=== PATIENT | male | born 1945 | race Caucasian/White ===

== ENCOUNTER 2017-06-17 08:21 | Emergency (ER) | payer MEDICARE, MEDICAID ==
[2017-06-17] MEDS: LORATADINE 10 MG TAB PO (09:00)
[2017-06-17] MEDS: HYDROCORTISONE 1% CREAM 30 GM TOP (09:06)
== END 2017-06-17 09:18 | disposition home or self-care (01) ==
LOC: M ED 08:21
DX: R21 Rash and other nonspecific skin eruption (principal); I10 Essential (primary) hypertension; E78.00 Pure hypercholesterolemia, unspecified; Z79.899 Other long term (current) drug therapy; Z88.8 Allergy status to other drugs, medicaments and biological substances; Z88.0 Allergy status to penicillin; Z88.2 Allergy status to sulfonamides; Z98.890 Other specified postprocedural states
CPT/HCPCS: 99282

== ENCOUNTER → 2018-02-26 | Outpatient (CLI) | payer OTHER, MEDICAID ==
[2018-02-26 14:16] LABS: BASO % 0.3 % (0.0-1.0); EOS # 0.2 10^3/uL (0.0-0.50); EOS % 3.2 % (0.0-3.0); HEMATOCRIT 37.7 % (42.0-52.0); HEMOGLOBIN 12.6 g/dl (13.5-17.5); IMMATURE GRANULOCYTE % 0.6 % (0-3.0); LYMPH # 2.2 10^3/uL (1.5-4.5); LYMPH % 32.3 % (24.0-44.0); MEAN CORPUSCULAR HEMOGLOBIN 30.9 pg (27.0-33.0); MEAN CORPUSCULAR HGB CONC 33.4 g/dl (32.0-36.5); MEAN CORPUSCULAR VOLUME 92.4 fl (80.0-96.0); MONO # 0.7 10^3/uL (0.0-0.8); MONO % 10.4 % (0.0-5.0); NEUTROPHILS # 3.5 10^3/uL (1.8-7.7); NEUTROPHILS % 53.2 % (36.0-66.0); PLATELET COUNT, AUTOMATED 193 10^3/uL (150-450); RED BLOOD COUNT 4.08 10^6/uL (4.30-6.10); WHITE BLOOD COUNT 6.7 10^3/uL (4.0-10.0)
[2018-02-26 20:28] LABS: ALBUMIN 3.3 GM/DL (3.2-5.2); ALBUMIN/GLOBULIN RATIO 0.87 (1.00-1.93); ALKALINE PHOSPHATASE 78 U/L (45-117); ALT/SGPT 21 U/L (12-78); ANION GAP 13 MEQ/L (8-16); AST/SGOT 19 U/L (7-37); BILIRUBIN,TOTAL 0.7 MG/DL (0.2-1.0); BLOOD UREA NITROGEN 29 MG/DL (7-18); CALCIUM LEVEL 9.1 MG/DL (8.8-10.2); CARBON DIOXIDE LEVEL 19 MEQ/L (21-32); CHLORIDE LEVEL 113 MEQ/L (98-107); CHOLESTEROL LEVEL 141 MG/DL (<200); CHOLESTEROL RISK RATIO 2.937 (<5); CREATININE FOR GFR 1.64 MG/DL (0.70-1.30); GLOMERULAR FILTRATION RATE 44.1 (>42); GLUCOSE, FASTING 97 MG/DL (70-100); HDL CHOLESTEROL 48 MG/DL (>40); LDL CHOLESTEROL 72 MG/DL (<100); NON-HDL-C 93 MG/DL; POTASSIUM SERUM 4.4 MEQ/L (3.5-5.1); SODIUM LEVEL 145 MEQ/L (136-145); THYROXINE (T4) 7.7 UG/DL (4.5-12.0); TOTAL PROTEIN 7.1 GM/DL (6.4-8.2); TRIGLYCERIDES LEVEL 104 MG/DL (<150)
[2018-02-26 23:53] LABS: ESTIMATED AVERAGE GLUCOSE 128 MG/DL (60-110); HEMOGLOBIN A1c 6.1 %
== END ==
LOC: M SMT 08:09
DX: E78.2 Mixed hyperlipidemia (principal); I10 Essential (primary) hypertension; E11.9 Type 2 diabetes mellitus without complications; N47.7 Other inflammatory diseases of prepuce; E03.9 Hypothyroidism, unspecified; Z51.81 Encounter for therapeutic drug level monitoring; Z79.899 Other long term (current) drug therapy
CPT/HCPCS: 84443

== ENCOUNTER → 2018-03-27 | Outpatient (CLI) | payer OTHER, MEDICAID ==
[2018-03-27 09:25] LABS: HEMATOCRIT 37.7 % (42.0-52.0); HEMOGLOBIN 12.7 g/dl (13.5-17.5); MEAN CORPUSCULAR HEMOGLOBIN 30.5 pg (27.0-33.0); MEAN CORPUSCULAR HGB CONC 33.7 g/dl (32.0-36.5); MEAN CORPUSCULAR VOLUME 90.6 fl (80.0-96.0); PLATELET COUNT, AUTOMATED 176 10^3/uL (150-450); RED BLOOD COUNT 4.16 10^6/uL (4.30-6.10); RED CELL DISTRIBUTION WIDTH 13.3 % (11.5-14.5); WHITE BLOOD COUNT 6.6 10^3/uL (4.0-10.0)
[2018-03-27 09:39] LABS: INR 0.97
[2018-03-27 09:40] LABS: PARTIAL THROMBOPLASTIN TIME 28.7 SECONDS (25.4-37.6)
[2018-03-27 10:13] LABS: ANION GAP 6 MEQ/L (8-16); BLOOD UREA NITROGEN 19 MG/DL (7-18); CALCIUM LEVEL 9.3 MG/DL (8.8-10.2); CARBON DIOXIDE LEVEL 27 MEQ/L (21-32); CHLORIDE LEVEL 113 MEQ/L (98-107); CREATININE FOR GFR 1.47 MG/DL (0.70-1.30); GLOMERULAR FILTRATION RATE 49.9 (>42); GLUCOSE, FASTING 125 MG/DL (70-100); POTASSIUM SERUM 4.2 MEQ/L (3.5-5.1); SODIUM LEVEL 146 MEQ/L (136-145)
== END ==
LOC: M LAB 08:45
DX: Z01.818 Encounter for other preprocedural examination (principal); N48.89 Other specified disorders of penis; R00.1 Bradycardia, unspecified; R94.31 Abnormal electrocardiogram [ECG] [EKG]
CPT/HCPCS: 71046

== ENCOUNTER → 2018-04-15 | Outpatient (CLI) | payer OTHER, MEDICAID ==
[~2018-04-15] MED LIST: CIPROFLOXACIN 400 MG in APPROPRIATE DILUENT 1 EA IV; LIDOCAINE 2% INJ 100 MG/5 ML SDV (FOR ANES.) As Ordered; LIDOCAINE 2% INJ 100 MG/5 ML SYRINGE As Ordered; LR 1,000 ML IV; ONDANSETRON 4MG/2ML VIAL (J2405) As Ordered; PROPOFOL 200 MG/20 ML VIAL As Ordered; fentaNYL 100 MCG/2 ML INJECTION (J3010) As Ordered
[2018-04-15 11:37] LABS: BEDSIDE GLUCOSE 99 MG/DL (83-110)
[2018-04-15] MEDS: BACITRACIN OINT 30GM As Ordered (12:18)
== END ==
LOC: M SDC 10:44
DX: N47.1 Phimosis (principal)

== ENCOUNTER → 2018-05-23 | Outpatient (CLI) | payer MEDICARE, MEDICAID ==
[~2018-05-23] MED LIST changes: +BIMA01SOL OU; +BUSP5TA PO; -CIPROFLOXACIN 400 MG in APPROPRIATE DILUENT 1 EA IV; +CLAR1TAB2 PO; +FISH7.5C PO; +HYDR1CRE TOP; -LIDOCAINE 2% INJ 100 MG/5 ML SDV (FOR ANES.) As Ordered; -LIDOCAINE 2% INJ 100 MG/5 ML SYRINGE As Ordered; +LOSA100T50 PO; +LOVA1CAP17 PO; -LR 1,000 ML IV; +METO100T5 PO; +MONT10TA2 PO; -ONDANSETRON 4MG/2ML VIAL (J2405) As Ordered; +PRAV20TA2 PO; -PROPOFOL 200 MG/20 ML VIAL As Ordered; +RANI150T PO; +TAMS1CAP17 PO; +VENL75CA47 PO; +VENTAER INH; -fentaNYL 100 MCG/2 ML INJECTION (J3010) As Ordered
[2018-05-23 13:28] LABS: CALCIUM LEVEL 9.6 MG/DL (8.8-10.2); CREATININE FOR GFR 1.39 MG/DL (0.70-1.30); GLOMERULAR FILTRATION RATE 53.2 (>42); POTASSIUM SERUM 4.8 MEQ/L (3.5-5.1)
[2018-05-23 13:39] LABS: HEMATOCRIT 39.6 % (42.0-52.0); HEMOGLOBIN 13.4 g/dl (13.5-17.5); MEAN CORPUSCULAR HEMOGLOBIN 31.2 pg (27.0-33.0); MEAN CORPUSCULAR HGB CONC 33.8 g/dl (32.0-36.5); MEAN CORPUSCULAR VOLUME 92.1 fl (80.0-96.0); PLATELET COUNT, AUTOMATED 178 10^3/uL (150-450); WHITE BLOOD COUNT 6.6 10^3/uL (4.0-10.0)
== END ==
LOC: M SMT 10:35
PROVIDERS: ATTEND Urology
DX: Z01.818 Encounter for other preprocedural examination (principal); N47.1 Phimosis

== ENCOUNTER 2018-06-12 07:02 | Day surgery (SDC) | payer MEDICARE ==
[~2018-06-12] VITALS: Ht 162.6 cm; Wt 89.8 kg
[~2018-06-12 07:02] MED LIST changes: +LIDOCAINE 1% MDV 20ML VIAL SQ PRN
[2018-06-12] MEDS ORDERED: LR 1,000 ML IV ONE (07:15)
[2018-06-12] MEDS ORDERED: PROPOFOL 200 MG/20 ML VIAL As Ordered ONE (08:17)
[2018-06-12] MEDS ORDERED: LIDOCAINE 2% INJ 100 MG/5 ML SDV (FOR ANES.) As Ordered ONE (08:17)
[2018-06-12] MEDS ORDERED: fentaNYL 100 MCG/2 ML INJECTION (J3010) As Ordered ONE (08:18)
[2018-06-12] MEDS ORDERED: MIDAZOLAM INJ 2 MG/2 ML VIAL (J2250) As Ordered ONE (08:18)
[2018-06-12] MEDS: LevoFLOXacin IV 500 MG in APPROPRIATE DILUENT 1 EA IV ONE (08:25)
[2018-06-12] MEDS ORDERED: ROCURONIUM BROMIDE 50 MG/5 ML VIAL As Ordered ONE (08:44)
[2018-06-12] MEDS ORDERED: ePHEDrine SULFATE 25 MG/5 ML(5MG/ML) SYRINGE As Ordered ONE (09:27)
[2018-06-12] MEDS: BACITRACIN OINT 30GM As Ordered ONE (09:32)
[2018-06-12] MEDS ORDERED: METOCLOPRAMIDE INJ 10MG/2ML VIAL (J2765) As Ordered ONE (09:46)
[2018-06-12] MEDS ORDERED: ONDANSETRON 4MG/2ML VIAL (J2405) As Ordered ONE (09:46)
[2018-06-12] MEDS ORDERED: fentaNYL 100 MCG/2 ML INJECTION (J3010) IV PRN (11:00)
[2018-06-12] MEDS ORDERED: ONDANSETRON 4MG/2ML VIAL (J2405) IV PRN (11:00)
[2018-06-12] MEDS ORDERED: PERCOCET 5MG/325MG TAB PO PRN ×2 (11:00→11:15)
[2018-06-12] MEDS ORDERED: LR 1,000 ML IV SCH (11:00)
[2018-06-12 12:20] VITALS: BP 135/76
--- NOTE | 2018-06-13 08:20 | RO ---
DATE OF PROCEDURE: 06/12/2018 PREPROCEDURE DIAGNOSIS: Phimosis. POSTPROCEDURE DIAGNOSIS: Phimosis. PROCEDURE: Circumcision. SURGEON: Dr. Jovani Best ANIMAL ATTENDANTS AND TRAINERS: None. ANESTHESIA: General. OPERATIVE INDICATIONS: This is a 73-year-old male with phimosis and difficulty retracting his foreskin. He was brought to the operating room today for the above listed procedure. DESCRIPTION OF PROCEDURE: The patient was brought to the operating room where general anesthesia was induced. Prophylactic antibiotics were infused. He was then placed in supine position and prepped and draped in the usual sterile fashion. At this point, circumcising incisions were made at the level of the coronal sulcus with the foreskin retracted all the way back and then also with it pulled over the glans. These two circumcising incisions were then connected with the electrocautery. All of the skin in between the circumcising incisions were then removed using electrocautery. At this point, I checked for hemostasis and any areas of bleeding were controlled with electrocautery. We then reapproximated the skin of the shaft to the glans using interrupted #3-0 chromic sutures. Once the skin was reapproximated, bacitracin ointment was then applied to the incision line and then dressings were applied, starting first with a clean dressing and then a Coban dressing. This marked the conclusion of the procedure. The patient was then awakened from anesthesia and transported to the recovery room in stable condition. Estimated blood loss: 5 mL. Complications: None. Specimen: Foreskin. Plan: The patient will followup in the clinic in a few weeks for a postoperative visit .
== END 2018-06-12 13:53 | disposition home or self-care (01) ==
LOC: M SDC 07:02
PROVIDERS: ATTEND Urology
DX: N47.1 Phimosis (principal); N47.7 Other inflammatory diseases of prepuce; N40.0 Benign prostatic hyperplasia without lower urinary tract symptoms; I12.9 Hypertensive chronic kidney disease with stage 1 through stage 4 chronic kidney disease, or unspecified chronic kidney disease; R60.0 Localized edema; E11.22 Type 2 diabetes mellitus with diabetic chronic kidney disease; E03.9 Hypothyroidism, unspecified; N18.3 Chronic kidney disease, stage 3 (moderate); E78.2 Mixed hyperlipidemia; K44.9 Diaphragmatic hernia without obstruction or gangrene; K21.9 Gastro-esophageal reflux disease without esophagitis; M12.9 Arthropathy, unspecified; J45.909 Unspecified asthma, uncomplicated; J44.9 Chronic obstructive pulmonary disease, unspecified; J30.89 Other allergic rhinitis; G47.33 Obstructive sleep apnea (adult) (pediatric); Z88.0 Allergy status to penicillin; Z88.1 Allergy status to other antibiotic agents; Z88.2 Allergy status to sulfonamides; Z88.6 Allergy status to analgesic agent; Z79.899 Other long term (current) drug therapy; Z98.41 Cataract extraction status, right eye; Z98.42 Cataract extraction status, left eye; Z96.1 Presence of intraocular lens
CPT/HCPCS: 54161; 88304; J1956; J2250; J2405; J2765; J3010

== ENCOUNTER → 2018-09-26 | Outpatient (CLI) | payer MEDICARE, MEDICAID ==
[~2018-09-26] MED LIST changes: -LIDOCAINE 1% MDV 20ML VIAL SQ PRN
[2018-09-26 13:27] LABS: BASO % 0.1 % (0.0-1.0); EOS # 0.2 10^3/uL (0.0-0.50); EOS % 2.8 % (0.0-3.0); HEMATOCRIT 40.1 % (42.0-52.0); HEMOGLOBIN 13.4 g/dl (13.5-17.5); LYMPH # 1.9 10^3/uL (1.5-4.5); LYMPH % 27.7 % (24.0-44.0); MEAN CORPUSCULAR HEMOGLOBIN 31.2 pg (27.0-33.0); MEAN CORPUSCULAR HGB CONC 33.4 g/dl (32.0-36.5); MEAN CORPUSCULAR VOLUME 93.3 fl (80.0-96.0); MONO # 0.7 10^3/uL (0.0-0.8); MONO % 10.7 % (0.0-5.0); NEUTROPHILS % 58.3 % (36.0-66.0); PLATELET COUNT, AUTOMATED 162 10^3/uL (150-450); WHITE BLOOD COUNT 6.9 10^3/uL (4.0-10.0)
[2018-09-26 13:37] LABS: ALBUMIN 3.6 GM/DL (3.2-5.2); CALCIUM LEVEL 9.4 MG/DL (8.8-10.2); CHOLESTEROL RISK RATIO 3.409 (<5); CREATININE FOR GFR 1.38 MG/DL (0.70-1.30); GLOMERULAR FILTRATION RATE 53.6 (>42); POTASSIUM SERUM 4.5 MEQ/L (3.5-5.1); THYROID STIMULATING HORMONE 0.82 uIU/ML (0.358-3.740); TOTAL PROTEIN 6.8 GM/DL (6.4-8.2)
[2018-09-26 14:00] LABS: HEMOGLOBIN A1c 6.2 %
== END ==
LOC: M SMT 09:05
PROVIDERS: ATTEND Nurse Practitioner Adult Health
DX: E11.9 Type 2 diabetes mellitus without complications (principal); E03.9 Hypothyroidism, unspecified; E78.2 Mixed hyperlipidemia; N47.1 Phimosis; Z12.5 Encounter for screening for malignant neoplasm of prostate
CPT/HCPCS: 36415; 80053; 80061; 83036; 84436; 84443; 85027; G0103

== ENCOUNTER → 2018-11-21 | Outpatient (CLI) | payer MEDICARE, MEDICAID ==
[2018-11-21 13:06] LABS: BASO % 0.2 % (0.0-1.0); EOS # 0.2 10^3/uL (0.0-0.50); EOS % 3.8 % (0.0-3.0); HEMATOCRIT 37.7 % (42.0-52.0); HEMOGLOBIN 12.5 g/dl (13.5-17.5); LYMPH # 1.6 10^3/uL (1.5-4.5); LYMPH % 26.7 % (24.0-44.0); MEAN CORPUSCULAR HEMOGLOBIN 30.3 pg (27.0-33.0); MEAN CORPUSCULAR HGB CONC 33.2 g/dl (32.0-36.5); MEAN CORPUSCULAR VOLUME 91.3 fl (80.0-96.0); MONO # 0.7 10^3/uL (0.0-0.8); MONO % 11.3 % (0.0-5.0); NEUTROPHILS # 3.5 10^3/uL (1.8-7.7); NEUTROPHILS % 57.3 % (36.0-66.0); PLATELET COUNT, AUTOMATED 164 10^3/uL (150-450); RED BLOOD COUNT 4.13 10^6/uL (4.30-6.10); WHITE BLOOD COUNT 6.1 10^3/uL (4.0-10.0)
[2018-11-21 13:32] LABS: ALBUMIN 3.5 GM/DL (3.2-5.2); BILIRUBIN,TOTAL 0.4 MG/DL (0.2-1.0); CALCIUM LEVEL 9.5 MG/DL (8.8-10.2); CHOLESTEROL RISK RATIO 3.382 (<5); CREATININE FOR GFR 1.39 MG/DL (0.70-1.30); GLOMERULAR FILTRATION RATE 53.2 (>42); HEMOGLOBIN A1c 6.2 %; POTASSIUM SERUM 4.6 MEQ/L (3.5-5.1); THYROID STIMULATING HORMONE 1.78 uIU/ML (0.358-3.740); THYROXINE (T4) 7.3 UG/DL (4.5-12.0)
== END ==
LOC: M SMT 09:08
PROVIDERS: ATTEND Nurse Practitioner Adult Health
DX: E11.9 Type 2 diabetes mellitus without complications (principal); E03.9 Hypothyroidism, unspecified; E78.2 Mixed hyperlipidemia
CPT/HCPCS: 36415; 80053; 80061; 83036; 84436; 84443; 85027; G0463

== ENCOUNTER → 2020-01-16 | Outpatient (CLI) | payer MEDICAID, MEDICARE, OTHER ==
[~2020-01-16] MED LIST changes: -MONT10TA2 PO; +MONT10TA4 PO
[2020-01-16 11:52] LABS: BASO % 0.1 % (0.0-1.0); EOS % 0.1 % (0.0-3.0); HEMATOCRIT 40.4 % (42.0-52.0); HEMOGLOBIN 13.7 g/dl (13.5-17.5); LYMPH # 1.8 10^3/uL (1.5-5.0); LYMPH % 24.5 % (24.0-44.0); MEAN CORPUSCULAR HEMOGLOBIN 31.1 pg (27.0-33.0); MEAN CORPUSCULAR HGB CONC 33.9 g/dl (32.0-36.5); MEAN CORPUSCULAR VOLUME 91.6 fl (80.0-96.0); MONO # 0.8 10^3/uL (0.0-0.8); MONO % 10.4 % (0.0-5.0); NEUTROPHILS # 4.8 10^3/uL (1.5-8.5); NEUTROPHILS % 64.2 % (36.0-66.0); PLATELET COUNT, AUTOMATED 191 10^3/uL (150-450); RED BLOOD COUNT 4.41 10^6/uL (4.30-6.10); WHITE BLOOD COUNT 7.5 10^3/uL (4.0-10.0)
[2020-01-16 12:38] LABS: HEMOGLOBIN A1c 5.9 %
[2020-01-16 13:47] LABS: ALBUMIN 3.7 GM/DL (3.2-5.2); BILIRUBIN,TOTAL 0.8 MG/DL (0.2-1.0); CALCIUM LEVEL 9.9 MG/DL (8.8-10.2); CHOLESTEROL RISK RATIO 2.81 (<5); CREATININE FOR GFR 1.34 MG/DL (0.70-1.30); GLOMERULAR FILTRATION RATE 55.3 (>42); POTASSIUM SERUM 4.6 MEQ/L (3.5-5.1); TOTAL PROTEIN 7.5 GM/DL (6.4-8.2)
== END ==
LOC: M LAB 10:35
PROVIDERS: ATTEND Nurse Practitioner Adult Health
DX: E78.2 Mixed hyperlipidemia (principal); K21.9 Gastro-esophageal reflux disease without esophagitis; N40.1 Benign prostatic hyperplasia with lower urinary tract symptoms; F41.9 Anxiety disorder, unspecified; Z79.899 Other long term (current) drug therapy

== ENCOUNTER → 2020-04-28 | Outpatient (CLI) | payer OTHER, MEDICAID ==
[~2020-04-28] MED LIST changes: -MONT10TA4 PO; +MONT5TAB2 PO
[2020-04-28 10:03] LABS: BASO % 0.2 % (0.0-1.0); HEMATOCRIT 39.8 % (42.0-52.0); HEMOGLOBIN 13.1 g/dl (13.5-17.5); LYMPH % 32.1 % (24.0-44.0); MEAN CORPUSCULAR HEMOGLOBIN 30.1 pg (27.0-33.0); MEAN CORPUSCULAR HGB CONC 32.9 g/dl (32.0-36.5); MEAN CORPUSCULAR VOLUME 91.5 fl (80.0-96.0); MONO # 0.7 10^3/uL (0.0-0.8); MONO % 11.7 % (0.0-5.0); NEUTROPHILS # 3.5 10^3/uL (1.5-8.5); NEUTROPHILS % 55.5 % (36.0-66.0); PLATELET COUNT, AUTOMATED 194 10^3/uL (150-450); RED BLOOD COUNT 4.35 10^6/uL (4.30-6.10); WHITE BLOOD COUNT 6.4 10^3/uL (4.0-10.0)
[2020-04-28 10:11] LABS: HEMOGLOBIN A1c 5.9 %
[2020-04-28 10:36] LABS: ALBUMIN 3.6 GM/DL (3.2-5.2); BILIRUBIN,TOTAL 0.4 MG/DL (0.2-1.0); CALCIUM LEVEL 9.9 MG/DL (8.8-10.2); CHOLESTEROL RISK RATIO 4.108 (<5); CREATININE FOR GFR 1.42 MG/DL (0.70-1.30); GLOMERULAR FILTRATION RATE 51.6 (>42); MAGNESIUM LEVEL 2.3 MG/DL (1.8-2.4); POTASSIUM SERUM 4.9 MEQ/L (3.5-5.1); TOTAL PROTEIN 7.4 GM/DL (6.4-8.2)
== END ==
LOC: M LAB 08:50
PROVIDERS: ATTEND Nurse Practitioner Adult Health
DX: E78.2 Mixed hyperlipidemia (principal); R73.03 Prediabetes; Z79.899 Other long term (current) drug therapy

== ENCOUNTER → 2020-07-28 | Outpatient (CLI) | payer OTHER, MEDICAID ==
[~2020-07-28] MED LIST changes: +MONT10TA10 PO; -MONT5TAB2 PO
[2020-07-28 09:43] LABS: BASO % 0.2 % (0.0-1.0); HEMATOCRIT 40.4 % (42.0-52.0); HEMOGLOBIN 13.4 g/dl (13.5-17.5); LYMPH # 1.9 10^3/uL (1.5-5.0); LYMPH % 31.9 % (24.0-44.0); MEAN CORPUSCULAR HEMOGLOBIN 30.4 pg (27.0-33.0); MEAN CORPUSCULAR HGB CONC 33.2 g/dl (32.0-36.5); MEAN CORPUSCULAR VOLUME 91.6 fl (80.0-96.0); MONO # 0.8 10^3/uL (0.0-0.8); MONO % 12.9 % (2.0-8.0); NEUTROPHILS # 3.3 10^3/uL (1.5-8.5); NEUTROPHILS % 54.7 % (36.0-66.0); PLATELET COUNT, AUTOMATED 177 10^3/uL (150-450); RED BLOOD COUNT 4.41 10^6/uL (4.30-6.10); WHITE BLOOD COUNT 6.1 10^3/uL (4.0-10.0)
[2020-07-28 10:16] LABS: HEMOGLOBIN A1c 5.9 %
[2020-07-28 10:29] LABS: ALBUMIN 3.7 GM/DL (3.2-5.2); BILIRUBIN,TOTAL 0.6 MG/DL (0.2-1.0); CALCIUM LEVEL 9.5 MG/DL (8.8-10.2); CHOLESTEROL RISK RATIO 4.372 (<5); CREATININE FOR GFR 1.41 MG/DL (0.70-1.30); MAGNESIUM LEVEL 2.1 MG/DL (1.8-2.4); POTASSIUM SERUM 4.4 MEQ/L (3.5-5.1); THYROID STIMULATING HORMONE 1.64 uIU/ML (0.358-3.740); TOTAL PROTEIN 7.4 GM/DL (6.4-8.2)
== END ==
LOC: M LAB 08:57
PROVIDERS: ATTEND Nurse Practitioner Adult Health
DX: Z00.01 Encounter for general adult medical examination with abnormal findings (principal); R73.03 Prediabetes; E78.2 Mixed hyperlipidemia; Z79.899 Other long term (current) drug therapy

== ENCOUNTER → 2020-10-11 | Outpatient (CLI) | payer OTHER, MEDICAID ==
[2020-10-11 10:54] LABS: BASO % 0.1 % (0.0-1.0); HEMATOCRIT 41.2 % (42.0-52.0); HEMOGLOBIN 13.6 g/dl (13.5-17.5); LYMPH # 1.9 10^3/uL (1.5-5.0); LYMPH % 26.9 % (24.0-44.0); MEAN CORPUSCULAR HEMOGLOBIN 30.8 pg (27.0-33.0); MEAN CORPUSCULAR VOLUME 93.2 fl (80.0-96.0); MONO # 0.8 10^3/uL (0.0-0.8); MONO % 11.1 % (2.0-8.0); NEUTROPHILS # 4.3 10^3/uL (1.5-8.5); NEUTROPHILS % 61.5 % (36.0-66.0); PLATELET COUNT, AUTOMATED 152 10^3/uL (150-450); RED BLOOD COUNT 4.42 10^6/uL (4.30-6.10)
[2020-10-11 11:40] LABS: ALBUMIN 3.8 GM/DL (3.2-5.2); BILIRUBIN,TOTAL 0.6 MG/DL (0.2-1.0); CALCIUM LEVEL 9.9 MG/DL (8.8-10.2); CHOLESTEROL RISK RATIO 4.829 (<5); CREATININE FOR GFR 1.31 MG/DL (0.70-1.30); GLOMERULAR FILTRATION RATE 56.6 (>42); MAGNESIUM LEVEL 2.2 MG/DL (1.8-2.4); POTASSIUM SERUM 4.4 MEQ/L (3.5-5.1); THYROID STIMULATING HORMONE 1.97 uIU/ML (0.358-3.740); TOTAL PROTEIN 7.5 GM/DL (6.4-8.2)
== END ==
LOC: M LAB 09:37
PROVIDERS: ATTEND Nurse Practitioner Family
DX: I10 Essential (primary) hypertension (principal)
CPT/HCPCS: 36415; 80053; 80061; 83036; 83735; 84443; 85025; G0103

== ENCOUNTER → 2020-11-18 | Outpatient (REF) | payer OTHER, MEDICAID | LOC: M LAB REF 17:09 | PROVIDERS: ATTEND Internal Medicine Nephrology | DX: N18.31 Chronic kidney disease, stage 3a (principal); I12.9 Hypertensive chronic kidney disease with stage 1 through stage 4 chronic kidney disease, or unspecified chronic kidney disease ==

== ENCOUNTER → 2020-11-29 | Outpatient (CLI) | payer OTHER, MEDICAID ==
--- NOTE | 2020-11-29 17:05 | REP ---
INDICATION: CKD 3A. COMPARISON: None. TECHNIQUE: Urinary tract sonography FINDINGS: Scanning of the level of the urinary bladder shows that it is largely empty at the time of scanning.. Renal cortical echogenicity pattern is normal bilaterally and contours are smooth. There is no evidence of hydronephrosis, cyst, mass, or calculus in either kidney. The right kidney measures 9.8 x 4.9 x 5.4 cm. Left renal dimensions are 9.3 x 4.8 x 4.9 cm. IMPRESSION: Unremarkable urinary tract ultrasound.. <Electronically signed by Leo Bernal > 11/29/20 [id number]
== END ==
LOC: M RAD 15:26
PROVIDERS: ATTEND Internal Medicine Nephrology
DX: N18.31 Chronic kidney disease, stage 3a (principal)

== ENCOUNTER → 2020-12-22 | Outpatient (CLI) | payer OTHER, MEDICAID ==
[2020-12-22 10:36] LABS: EOS % 0.2 % (0.0-3.0); HEMATOCRIT 39.6 % (42.0-52.0); HEMOGLOBIN 13.2 g/dl (13.5-17.5); LYMPH # 1.8 10^3/uL (1.5-5.0); MEAN CORPUSCULAR HGB CONC 33.3 g/dl (32.0-36.5); MONO # 0.6 10^3/uL (0.0-0.8); MONO % 9.3 % (2.0-8.0); NEUTROPHILS # 3.6 10^3/uL (1.5-8.5); PLATELET COUNT, AUTOMATED 149 10^3/uL (150-450); RED BLOOD COUNT 4.26 10^6/uL (4.30-6.10); WHITE BLOOD COUNT 5.9 10^3/uL (4.0-10.0)
[2020-12-22 11:13] LABS: ALBUMIN 3.5 GM/DL (3.2-5.2); BILIRUBIN,TOTAL 0.7 MG/DL (0.2-1.0); CALCIUM LEVEL 9.3 MG/DL (8.8-10.2); CHOLESTEROL RISK RATIO 3.2 (<5); CREATININE FOR GFR 1.29 MG/DL (0.70-1.30); GLOMERULAR FILTRATION RATE 57.6 (>42); MAGNESIUM LEVEL 2.3 MG/DL (1.8-2.4); POTASSIUM SERUM 4.2 MEQ/L (3.5-5.1); THYROID STIMULATING HORMONE 2.58 uIU/ML (0.358-3.740); TOTAL PROTEIN 7.3 GM/DL (6.4-8.2)
== END ==
LOC: M LAB 09:13
PROVIDERS: ATTEND Nurse Practitioner Family
DX: E78.5 Hyperlipidemia, unspecified (principal); F41.8 Other specified anxiety disorders; Z79.899 Other long term (current) drug therapy; I10 Essential (primary) hypertension; E83.42 Hypomagnesemia; E11.9 Type 2 diabetes mellitus without complications

== ENCOUNTER → 2020-12-22 | Outpatient (CLI) | payer OTHER, MEDICAID ==
[2020-12-22 11:12] LABS: ALBUMIN 3.7 GM/DL (3.2-5.2); ALT/SGPT 27 U/L (12-78); BILIRUBIN,TOTAL 0.7 MG/DL (0.2-1.0); BLOOD UREA NITROGEN 19 MG/DL (7-18); CALCIUM LEVEL 9.7 MG/DL (8.8-10.2); CARBON DIOXIDE LEVEL 27 MEQ/L (21-32); CHLORIDE LEVEL 113 MEQ/L (98-107); CHOLESTEROL LEVEL 165 MG/DL (<200); CREATININE FOR GFR 1.18 MG/DL (0.70-1.30); GLOMERULAR FILTRATION RATE > 60.0 (>42); GLUCOSE, FASTING 110 MG/DL (70-100); HDL CHOLESTEROL 50 MG/DL (>40); LDL CHOLESTEROL 90 MG/DL (<100); NON-HDL-C 115 MG/DL; POTASSIUM SERUM 4.1 MEQ/L (3.5-5.1); SODIUM LEVEL 145 MEQ/L (136-145); TOTAL PROTEIN 7.3 GM/DL (6.4-8.2); TRIGLYCERIDES LEVEL 125 MG/DL (<150)
[2020-12-22 11:52] LABS: HEMOGLOBIN A1c 6.1 %
== END ==
LOC: M LAB 09:08
PROVIDERS: ATTEND Student in an Organized Health Care Education/Training Program
DX: E11.9 Type 2 diabetes mellitus without complications (principal)

== ENCOUNTER → 2021-02-21 | Outpatient (REF) | payer OTHER, MEDICAID | LOC: M LAB REF 17:01 | PROVIDERS: ATTEND Internal Medicine Nephrology | DX: R60.9 Edema, unspecified (principal); I12.9 Hypertensive chronic kidney disease with stage 1 through stage 4 chronic kidney disease, or unspecified chronic kidney disease; N18.31 Chronic kidney disease, stage 3a ==

== ENCOUNTER → 2021-03-15 | Outpatient (CLI) | payer OTHER, MEDICAID ==
[2021-03-15 14:37] LABS: BASO % 0.2 % (0.0-1.0); EOS # 0.1 10^3/uL (0.0-0.5); HEMATOCRIT 38.1 % (42.0-52.0); HEMOGLOBIN 12.8 g/dl (13.5-17.5); LYMPH # 1.7 10^3/uL (1.5-5.0); LYMPH % 27.9 % (24.0-44.0); MEAN CORPUSCULAR HEMOGLOBIN 30.9 pg (27.0-33.0); MEAN CORPUSCULAR HGB CONC 33.6 g/dl (32.0-36.5); MONO # 0.7 10^3/uL (0.0-0.8); MONO % 11.3 % (2.0-8.0); NEUTROPHILS # 3.6 10^3/uL (1.5-8.5); NEUTROPHILS % 59.3 % (36.0-66.0); PLATELET COUNT, AUTOMATED 177 10^3/uL (150-450); RED BLOOD COUNT 4.14 10^6/uL (4.30-6.10)
[2021-03-15 14:52] LABS: ALBUMIN 3.4 GM/DL (3.2-5.2); BILIRUBIN,TOTAL 0.6 MG/DL (0.2-1.0); CALCIUM LEVEL 9.9 MG/DL (8.8-10.2); CHOLESTEROL RISK RATIO 3.365 (<5); CREATININE FOR GFR 1.29 MG/DL (0.70-1.30); GLOMERULAR FILTRATION RATE 57.6 (>42); POTASSIUM SERUM 4.5 MEQ/L (3.5-5.1); THYROID STIMULATING HORMONE 1.32 uIU/ML (0.358-3.740); TOTAL PROTEIN 7.2 GM/DL (6.4-8.2)
[2021-03-15 19:44] LABS: HEMOGLOBIN A1c 6.2 %
== END ==
LOC: M PLALAB 10:31
PROVIDERS: ATTEND Nurse Practitioner Family
DX: I10 Essential (primary) hypertension (principal)

== ENCOUNTER 2021-03-21 11:05 | Emergency (ER) | payer OTHER, MEDICAID ==
[~2021-03-21] VITALS: Ht 165.1 cm; Wt 93.3 kg
--- OUTSIDE RECORDS SUMMARY | 2021-03-21 11:16 | CCD | Continuity of Care Document ---
Author Author Cam BETH PA Organization Unknown Address [address] [place] [address], [address] [address] Phone [phone] Care Team Providers Care Aluminum Boat Assembly Supervisor Name Role Phone Cherelle Uriostegui MD AUTM [phone] Problems Description No Information Available Social History Type Date Description Comments Sex Unknown Tobacco Use Start: Unknown Denies Smoking Allergies and adverse reactions Active Allergies Criticality Reaction | Severity Comments Date Sulfa Antibiotics Unable to assess criticality 01/13/2016 Many Antibiotics Unable to assess criticality 01/13/2016 Medications Active Medications SIG Qnty Indications Ordering Provide r Date Valium 5mg Tablets take one half hour prior to mri may repeat in 25 minutes if no effect..do not drive to or from mri 2tabs Wilmer Reyes MD 03/21/2010 Proair HFA 108(90Base) mcg/Act Aer osol inhale two puffs by mouth four times a day Unkno wn Metoprolol Tartrate 100mg Tablets Unknown [place]-3 Ethyl Esters 1gm Unknown Aleve 220mg Tablets sig 1 by mouth twice a day as needed Unknown Ocuvite Tablets Unknown Losartan Potassium 100mg Tablets 1 by mouth every day Unknown Ranitidine HCL 150mg Tablets twice a day Unknown Pravastatin Sodium 20mg Tablets 1 tablet by mouth every bedtime Unknown 0 Montelukast Sodium 10mg Tablets 1 by mouth every day Unknown Tamsulosin HCL 0.4mg Capsules 1 by mouth every day Unknown Immunizations Description No Information Available Vital Signs Date Vital Result Comment 12/31/2020 2:17pm Body Temperature 96.9 F Height 64 inches 5'4" Weight 208.50 lb BMI (Body Mass Index) 35.8 kg/m2 12/27/2015 8:57am Body Temperature 97.1 F Height 65 inches 5'5" Weight 206.00 lb BMI (Body Mass Index) 34.3 kg/m2 Results Description No Information Available Procedures Date Code Description Status 03/03/2021 63094 Office/Outpatient Established Lo w MDM 20-29 Min Completed 12/31/2020 63927 Office/Outpatient Established Mo d MDM 30-39 Min Completed 12/31/2020 91157 X-Ray Knee Complete W/Obliques & Tunnel And/Or Standing Views Completed 12/31/2020 Inject/Drain Joint/Bursa Major C ompleted Medical Devices Description No Information Available Encounters Type Date Location Provider Dx Diagnosis Office Visit 03/03/2021 10:30a [facility] Shield[facility] M17.11 Unilateral primary osteoarthritis, right knee Office Visit 12/31/2020 2:30p [facility] Shields M17.11 Unilateral primary osteoarthritis, right knee Assessments Date Code Description Provider 03/03/2021 M17.11 Unilateral primary osteoarthriti s, right knee ANDREAS Olmos 12/31/2020 M17.11 Unilateral primary osteoarthriti s, right knee ANDREAS Olmos Plan of Treatment 03/03/2021 - ANDREAS Olmos* M17.11 Unilateral primary osteoarthritis, right knee* Follow up:* prn Functional Status Description No Information Available Mental Status Description No Information Available Referrals Refer to Reason for Referral Status Appt Date Marquise Ram MD 01/07/21 Monovisc Right Knee p er humana fax no auth is req, passed to frank to schedule sw. Created [address] [place] [address], [address] [place] [address] [phone]
--- OUTSIDE RECORDS SUMMARY | 2021-03-21 11:16 | CCD | Continuity of Care Document ---
Author Author Cam BETH PA Organization Unknown Address [address] [place] [address], [address] [address] Phone [phone] Care Team Providers Care Pharmacy Ancillary Name Role Phone VinnyRosalind Higinio QUILL PICKING MACHINE OPERATOR AUTM [phone] Problems Description No Information Available Social History Type Date Description Comments Sex Unknown Tobacco Use Start: Unknown Denies Smoking Allergies, Adverse Reactions, Alerts Active Allergies Criticality Reaction | Severity Comments [...] Unkno wn Metoprolol Tartrate 100mg Tablets Unknown [place]-3 Ethyl Esters 1gm Unknown Aleve 220mg Tablets [...] Information Available Procedures Date Code Description Status 12/31/2020 34741 Office/Outpatient Established Mo d MDM 30-39 Min Completed 12/31/2020 28378 X-Ray Knee Complete W/Obliques & Tunnel And/Or Standing Views Completed 12/31/2020 Inject/Drain Joint/Bursa Major C ompleted Medical Devices Description No Information Available Encounters Type Date Location Provider Dx Diagnosis Office Visit 12/31/2020 2:30p [place] ANDREAS Olmos M17.11 Unilateral primary osteoarthritis, right knee Assessments Date Code Description Provider 12/31/2020 M17.11 Unilateral primary osteoarthriti s, right knee ANDREAS Olmos Plan of Treatment Future Appointment(s):* 03/03/2021 10:30 am - ANDREAS Olmos at [place] 12/31/2020 - ANDREAS Olmos* M17.11 Unilateral primary osteoarthritis, right knee* Follow up:* 8-10 weeks for rt knee recheck with IID Functional Status Description No Information Available Mental Status Description No Information Available Referrals Refer to Dr Reason for Referral Status Appt Date Marquise Ram MD 01/07/21 Monovisc Right Knee p er humana fax no auth is req, passed to frank to schedule sw. Created [facility] [facility], [address] [place] [address] [phone]
--- OUTSIDE RECORDS SUMMARY | 2021-03-21 11:16 | CCD | Continuity of Care Document ---
Author Author Cam WARREN Organization Unknown Address [address] [place] [address] Phone [phone] Care Team Providers Care Petroleum Terminal Plant Operator Name Role Phone Clara Warren AUTM [phone] Problems Active Problems Provider Date Essential hypertension ANDREAS Chavez Onset: 2017 Mixed hyperlipidemia ANDREAS Chavez Onset: 10/24/19 18 Gastroesophageal reflux disease ANDREAS Chavez Onse t: 10/23/2017 Asthma without status asthmaticus ANDREAS Chavez On set: 10/23/2017 Benign prostatic hyperplasia with outflow obstruction ANDREAS Marquez Onset: 10/23/2017 Sleep apnea Maxim Breen PA Onset: 8 Glaucoma Maxim Breen PA Onset: 8 Redundant prepuce and phimosis Maxim Breen PA Onset : 10/23/2017 Posthitis Maxim Breen PA Onset: 8 Anxiety state Maxim Breen PA Onset: 8 Neck pain CARINA Alexander, PNP Onset: 0 Pain in right knee CARINA Alexander, PNP Onset: 0 Taking medication [facility] Onset: 020 Edema CARINA Alexander, PNP Onset: 0 Pain in left knee CARINA Alexander, PNP Onset: 0 Hypothyroidism CARINA Alexander, PNP Onset: 0 Pain in left knee AMBER Crowder Onset: 10/18/2020 Pain in right knee AMBER Crowder Onset: 10/18/2020 Social History Type Date Description Comments Sex Unknown Tobacco Use Start: Unknown End: Quit Tobacco Use Start: Unknown Never Smoked Cigars Tobacco Use Start: Unknown Never Smoked A Pipe Tobacco Use Start: Unknown Never Used Smokeless Tobacco ETOH Use Denies alcohol use Tobacco Use Start: Unknown End: Unknown Patient is a former smoker Recreational Drug Use Denies Drug Use Allergies and adverse reactions Active Allergies Criticality Reaction | Severity Comments Date Penicillin Unable to assess criticality Nausea and Vomiting | Sev ere Cold Sweat 01/22/2018 Sulfa Antibiotics Unable to assess criticality Throat Swelling | Moderate Has been able to tolerate Tamsulosin 01/22/2018 Medications Active Medications SIG Qnty Indications Ordering Provide r Date Metformin HCL ER 500mg Tablets ER 24HR 1 tab by mouth daily with breakfast 90tabs RONALD Alexander, PNP 05/13/2020 Famotidine 20mg Tablets take one tablet by mouth twice a day 60tabs K21.9 Tito Judd MD 06/02/2019 Montelukast Sodium 10mg Tablets take one tablet by mouth every day 90tabs J45.998 Tito Judd MD Preservision Areds 2 Areds 2 Capsu les 1 tab by mouth twice a day OTC 120caps CARINA Alexander , PNP 07/17/2018 Losartan Potassium 100mg Tablets take one tablet by mouth every day 90tabs Tito Judd MD Tamsulosin HCL 0.4mg Capsules Take One Capsule By Mouth Every Day 90caps N40.1 CARINA Alexander, P PIE MAKER MACHINE 01/22/2018 Metoprolol Tartrate 100mg Tablets take one tablet by mouth twice a day 180tabs I10 CARINA Alexander, PNP 10/23/2017 Lumigan 0.01% Solution 1 drop both eyes at bedtime 2.500ml H40.9 CARINA Alexander, PNP 10/24/19 18 Pravastatin Sodium 20mg Tablets Take One Tablet By Mouth AT Bedtime 90tabs E78.2 CARINA Alexander, P PIE MAKER MACHINE 10/05/2017 Ventolin HFA 108(90Base) mcg/Act A erosol 2 puff by mouth four times a day as needed 18gm J45.998 Rosalind Andres rae, ANP-BC, PNP [id number] Ethyl Esters 1gm Caps ules Take Two Capsules By Mouth Twice A Day 60caps Tito Judd MD Alphagan P 0.1% Solution Instill One Drop Twice A Day In Each Eye Unknown 00 Latanoprost 0.005% Solution Instill 1 Drop In Each Eye Every Evening Unknown Maalox Multi Symptom Maximum Strength by mouth as needed Unknown Immunizations Description No Information Available Vital Signs Date Vital Result Comment 02/07/2021 11:15am BP Systolic 122 mmHg BP Diastolic 84 mmHg Heart Rate 61 /min Body Temperature 96.8 F Respiratory Rate 16 /min O2 % BldC Oximetry 95 % Weight 206.12 lb Weight 93.498 kg Height 64 inches 5'4" BMI (Body Mass Index) 35.4 kg/m2 BSA (Body Surface Area) 1.98 m2 10/18/2020 11:17am BP Systolic 118 mmHg BP Diastolic 70 mmHg Heart Rate 72 /min Body Temperature 96.4 F Respiratory Rate 20 /min O2 % BldC Oximetry 97 % Weight 201.50 lb Weight 91.400 kg Height 64 inches 5'4" BMI (Body Mass Index) 34.6 kg/m2 BSA (Body Surface Area) 1.96 m2 Results Test Acquired Date Facility Test Result H/L Range Note Comprehensive Metabolic Profil 03/15/[address] [facility] Glucose, Fasting 126 mg/dL High 70-100 Blood Urea Nitrogen 20 mg/dL High 7-18 Creatinine For GFR 1.29 mg/dL Normal 0.70-1.30 Glomerular Filtration Rate 57.6 Normal >42 1 Sodium Level 143 mEq/L Normal 136-145 Potassium Serum 4.5 mEq/L Normal 3.5-5.1 Chloride Level 111 mEq/L High 98-107 Carbon Dioxide Level 30 mEq/L Normal 21-32 Anion Gap 2 mEq/L Low 8-16 Calcium Level 9.9 mg/dL Normal 8.8-10.2 Ast/Sgot 15 U/L Normal 7-37 Alt/SGPT 22 U/L Normal 12-78 Alkaline Phosphatase 80 U/L Normal 45-117 Bilirubin,Total 0.6 mg/dL Normal 0.2-1.0 Total Protein 7.2 GM/DL Normal 6.4-8.2 Albumin 3.4 GM/DL Normal 3.2-5.2 Albumin/Globulin Ratio 0.9 Normal Lipid Panel 03/15/[address] [facility] Triglycerides Level 204 mg/dL High <150 Cholesterol Level 138 mg/dL Normal <200 HDL Cholesterol 41 mg/dL Normal >40 LDL Cholesterol 56 mg/dL Normal <100 Non-HDL-C 97 mg/dL Normal Cholesterol Risk Ratio 3.365 Normal <5 Laboratory test finding 03/15/[address] [facility] Thyroid Stimulating Hormone 1.320 uIU/ML Normal 0.358-3.740 Hemoglobin A1c 03/15/[address] [facility] Hemoglobin A1c 6.2 % Normal 2 Estimated Average Glucose 131 mg/dL High 60-110 CBC With Differential 03/15/[address] [facility] White Blood Count 6.0 10 Normal 4.0-10.0 Red Blood Count 4.14 10 Low 4.30-6.10 Hemoglobin 12.8 g/dL Low 13.5-17.5 Hematocrit 38.1 % Low 42.0-52.0 Mean Corpuscular Volume 92.0 fl Normal 80.0-96.0 Mean Corpuscular Hemoglobin 30.9 pg Normal 27.0-33.0 Mean Corpuscular HGB Conc 33.6 g/dL Normal 32.0-36.5 Red Cell Distribution Width 13.1 % Normal 11.5-14.5 Platelet Count, Automated 177 10 Normal 150-450 Neutrophils % 59.3 % Normal 36.0-66.0 Lymph % 27.9 % Normal 24.0-44.0 [place] % 11.3 % High 2.0-8.0 Eos % 1.0 % Normal 0.0-3.0 Baso % 0.2 % Normal 0.0-1.0 Immature Granulocyte % 0.3 % Normal 0-3.0 Nucleated Red Blood Cell % 0.0 % Normal 0-0 Neutrophils # 3.6 10 Normal 1.5-8.5 Lymph # 1.7 10 Normal 1.5-5.0 [place] # 0.7 10 Normal 0.0-0.8 Eos # 0.1 10 Normal 0.0-0.5 Baso # 0.0 10 Normal 0.0-0.2 Laboratory test finding 12/22/[address] [facility] Magnesium Level 2.3 mg/dL Normal 1.8-2.4 Thyroid Stimulating Hormone 2.580 uIU/ML Normal 0.358-3.740 Hemoglobin A1c 12/22/[address] [facility] Hemoglobin A1c 6.1 % Normal 3 Estimated Average Glucose 128 mg/dL High 60-110 Lipid Panel 12/22/[address] [facility] Triglycerides Level 125 mg/dL Normal <150 Cholesterol Level 165 mg/dL Normal <200 HDL Cholesterol 50 mg/dL Normal >40 LDL Cholesterol 90 mg/dL Normal <100 Non-HDL-C 115 mg/dL Normal Cholesterol Risk Ratio 3.300 Normal <5 Comprehensive Metabolic Profil 12/22/[address] [facility] Glucose, Fasting 110 mg/dL High 70-100 Blood Urea Nitrogen 19 mg/dL High 11-21 Creatinine For GFR 1.18 mg/dL Normal 0.70-1.30 Glomerular Filtration Rate > 60.0 Normal >42 4 Sodium Level 145 mEq/L Normal 136-145 Potassium Serum 4.1 mEq/L Normal 3.5-5.1 Chloride Level 113 mEq/L High 98-107 Carbon Dioxide Level 27 mEq/L Normal 21-32 Anion Gap 5 mEq/L Low 8-16 Calcium Level 9.7 mg/dL Normal 8.8-10.2 Ast/Sgot 17 U/L Normal 7-37 Alt/SGPT 27 U/L Normal 12-78 Alkaline Phosphatase 87 U/L Normal 45-117 Bilirubin,Total 0.7 mg/dL Normal 0.2-1.0 Total Protein 7.3 GM/DL Normal 6.4-8.2 Albumin 3.7 GM/DL Normal 3.2-5.2 Albumin/Globulin Ratio 1.0 Normal Hemoglobin A1c 12/22/[address] [facility] Hemoglobin A1c 6.0 % Normal 5 Estimated Average Glucose 126 mg/dL High 60-110 Lipid Panel 12/22/[address] [facility] Triglycerides Level 122 mg/dL Normal <150 Cholesterol Level 160 mg/dL Normal <200 HDL Cholesterol 50 mg/dL Normal >40 LDL Cholesterol 86 mg/dL Normal <100 Non-HDL-C 110 mg/dL Normal Cholesterol Risk Ratio 3.200 Normal <5 Comprehensive Metabolic Profil 12/22/[address] [facility] Glucose, Fasting 113 mg/dL High 70-100 Blood Urea Nitrogen 20 mg/dL High 7-18 Creatinine For GFR 1.29 mg/dL Normal 0.70-1.30 Glomerular Filtration Rate 57.6 Normal >42 6 Sodium Level 143 mEq/L Normal 136-145 Potassium Serum 4.2 mEq/L Normal 3.5-5.1 Chloride Level 111 mEq/L High 98-107 Carbon Dioxide Level 28 mEq/L Normal 21-32 Anion Gap 4 mEq/L Low 8-16 Calcium Level 9.3 mg/dL Normal 8.8-10.2 Ast/Sgot 21 U/L Normal 7-37 Alt/SGPT 26 U/L Normal 12-78 Alkaline Phosphatase 81 U/L Normal 45-117 Bilirubin,Total 0.7 mg/dL Normal 0.2-1.0 Total Protein 7.3 GM/DL Normal 6.4-8.2 Albumin 3.5 GM/DL Normal 3.2-5.2 Albumin/Globulin Ratio 0.9 Normal CBC With Differential 12/22/[address] [facility] White Blood Count 5.9 10 Normal 4.0-10.0 Red Blood Count 4.26 10 Low 4.30-6.10 Hemoglobin 13.2 g/dL Low 13.5-17.5 Hematocrit 39.6 % Low 42.0-52.0 Mean Corpuscular Volume 93.0 fl Normal 80.0-96.0 Mean Corpuscular Hemoglobin 31.0 pg Normal 27.0-33.0 Mean Corpuscular HGB Conc 33.3 g/dL Normal 32.0-36.5 Red Cell Distribution Width 13.0 % Normal 11.5-14.5 Platelet Count, Automated 149 10 Low 150-450 Neutrophils % 60.0 % Normal 36.0-66.0 Lymph % 30.0 % Normal 24.0-44.0 [place] % 9.3 % High 2.0-8.0 Eos % 0.2 % Normal 0.0-3.0 Baso % 0.0 % Normal 0.0-1.0 Immature Granulocyte % 0.5 % Normal 0-3.0 Nucleated Red Blood Cell % 0.0 % Normal 0-0 Neutrophils # 3.6 10 Normal 1.5-8.5 Lymph # 1.8 10 Normal 1.5-5.0 [place] # 0.6 10 Normal 0.0-0.8 Eos # 0.0 10 Normal 0.0-0.5 Baso # 0.0 10 Normal 0.0-0.2 1 Units are mL/min/1.73 m2 Chronic Kidney Disease Staging per NKF: Stage I & II GFR >=60 Normal to Mildly Decreased Stage III GFR 30-59 Moderately Decreased Stage IV GFR 15-29 Severely Decreased Stage V GFR <15 Very Little GFR Left ESRD GFR <15 on ASBESTOS ABATEMENT WORKER 2 REFERENCE RANGES: <=5.6% NORMAL 5.7-6.4% SUGGESTS IMPAIRED GLUCOSE META BOLISM/PREDIABETIC >= 6.5% ABNORMAL 3 REFERENCE RANGES: <=5.6% NORMAL 5.7-6.4% SUGGESTS IMPAIRED GLUCOSE META BOLISM/PREDIABETIC >= 6.5% ABNORMAL 4 Units are mL/min/1.73 m2 Chronic Kidney Disease Staging per NKF: Stage I & II GFR >=60 Normal to Mildly Decreased Stage III GFR 30-59 Moderately Decreased Stage IV GFR 15-29 Severely Decreased Stage V GFR <15 Very Little GFR Left ESRD GFR <15 on ASBESTOS ABATEMENT WORKER 5 REFERENCE RANGES: <=5.6% NORMAL 5.7-6.4% SUGGESTS IMPAIRED GLUCOSE META BOLISM/PREDIABETIC >= 6.5% ABNORMAL 6 Units are mL/min/1.73 m2 Chronic Kidney Disease Staging per NKF: Stage I & II GFR >=60 Normal to Mildly Decreased Stage III GFR 30-59 Moderately Decreased Stage IV GFR 15-29 Severely Decreased Stage V GFR <15 Very Little GFR Left ESRD GFR <15 on ASBESTOS ABATEMENT WORKER Procedures Date Code Description Status 02/07/2021 52126 Office/Outpatient Established Mo d MDM 30-39 Min Completed 02/07/2021 60384 Admin Patient Focused Health Ris k Assessment Instrument Completed 02/07/2021 22254 Brief Emotional/Beha v Assessment W/ Scoring Doc Per Standard Inst Completed 10/18/2020 00372 Office/Outpatient Established Mo d MDM 30-39 Min Completed Medical Devices Description No Information Available Encounters Description No Information Available Assessments Date Code Description Provider 02/07/2021 I10 Essential (primary) hypertension Clara Warren, AMBER 02/07/2021 E78.2 Mixed hyperlipidemia Clara lin, MARINE FISHERIES TECHNICIAN 02/07/2021 R73.03 Prediabetes Clara Warren, F PIE MAKER MACHINE 02/07/2021 Z00.01 Encounter for genera l adult medical examination with abnormal findings AMBER Crowder 02/07/2021 Z13.29 Encounter for screen ing for other suspected endocrine disorder Clara Nevills, MARINE FISHERIES TECHNICIAN 02/07/2021 J45.998 Other asthma Clara Nevills, F PIE MAKER MACHINE 02/07/2021 K21.9 Gastro-esophageal reflux disease without esophagitis Clara Nevills, [employer]INE FISHER[employer] TECHNICIAN 02/07/2021 E83.42 Hypomagnesemia Clara Nevills, F PIE MAKER MACHINE 02/07/2021 M25.561 Pain in right knee Clara Nevills , [employer]INE FISHERIES TECHNICIAN 02/07/2021 Z79.899 Other care home (current) drug t herapy Clara Nevills, MARINE FISHERIES TECHNICIAN 10/18/2020 N28.9 Disorder of kidney and ureter, u nspecified Clara Nevills, [facility] 10/18/2020 I10 Essential (primary) hypertension Clara Nevills, [facility] 10/18/2020 E78.2 Mixed hyperlipidemia Clara Nevil ls, [facility] 10/18/2020 R73.03 Prediabetes Clara Nevills, F PIE MAKER MACHINE 10/18/2020 J45.998 Other asthma Clara Nevills, F PIE MAKER MACHINE 10/18/2020 K21.9 Gastro-esophageal reflux disease without esophagitis Clara Nevills, [employer] TECHNICIAN 10/18/2020 N40.1 Benign prostatic hyperplasia wit h lower urinary tract symptoms Clara Nevills, [facility] 10/18/2020 E83.42 Hypomagnesemia Clara Nevills, F PIE MAKER MACHINE 10/18/2020 M25.561 Pain in right knee Clara Nevills , [facility] 10/18/2020 M25.562 Pain in left knee Clara Nevills, [facility] 10/18/2020 Z79.899 Other terminal press operator (current) drug t herapy Clara Nevills, [facility] 10/18/2020 F41.8 Other specified anxiety disorder s AMBER Crowder Plan of Treatment Future Appointment(s):* 03/17/2021 11:00 am - AMBER Crowder at [facility] 02/07/2021 - ClaraAMBER Driscoll* I10 Essential (primary) hypertension* Comments: * Today, his BP is at 122/84.The patient was advised to continue with the current line of therapies. He will benefit from maintaining a low-sodium diet. We will continue to monitor. * E78.2 Mixed hyperlipidemia* Comments:* Labs reviewed with the patient in detail.Lipid panel showed:TRG at 122.CHOL at 160.HDL at 50.LDL at 86.He will continue with his current regimen. He was encouraged to maintain a low cholesterol diet and a regular exercise regimen.Discussed dietary changes to improve, avoiding meat and dairy products, avoiding processed foodsDecrease saturated Fats (meat, dairy products and processed foods)Increase Unsaturated fats (fish, plants, nuts, seeds, beans and vegetable oils)Increase aerobic exerciseIncrease water intake Read Labels * Follow up:* FU in 1 month for labs and tele-med FU in a week later to review lab results. * R73.03 Prediabetes* Comments:* Fasting glucose high at 113 with an A1c at 6.The patient was advised to continue with his current medication regimen. He will benefit from maintaining a diabetic diet and a regular exercise regimen. We will continue to monitor. * Follow up:* FU in 1 month for labs and tele-med FU in a week later to review lab results. * Z00.01 Encounter for general adult medical examination with abnormal findings * Comments:* Encouraged to exercise on a regular basis and watch his weight. Recent labs reviewed. Goal is to keep his health issues stable so he can remain active and live independently. * Z13.29 Encounter for screening for other suspected endocrine disorder* Comments:* To have the routine labs done to evaluate further.Further plans to follow the lab results.We will continue to monitor. * J45.998 Other asthma* Comments:* Currently stable.To continue current medication and plan of care.We will continue to monitor. * K21.9 Gastro-esophageal reflux disease without esophagitis* Comments:* The patient was advised to continue with current medication. Avoid spicy food and control diet as advised. * E83.42 Hypomagnesemia* Comments:* Magnesium at 2.3. To continue current supplement and plan of care.We will continue to monitor. * Follow up:* FU in 1 month for labs and tele-med FU in a week later to review lab results. * M25.561 Pain in right knee* Comments:* He was seen and evaluated by Ortho on 12/31/20 for his right knee pain which he attributed to an accident in 2019. 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 He had cortisone injection on his right knee at the clinic with FU in 8-10 weeks for right knee recheck and Gel-One injection to his right knee. * Z79.899 Other care home (current) drug therapy* Comments:* Patient to continue to follow the current plan of care and to look for any new or worsening symptoms. We will continue to monitor through periodic blood work. * Follow up:* FU in 1 month for labs and tele-med FU in a week later to review lab results. Functional Status Description No Information Available Mental Status Description No Information Available Referrals Description No Information Available
--- OUTSIDE RECORDS SUMMARY | 2021-03-21 11:16 | CCD | Continuity of Care Document ---
Author Author Cam BETH PA Organization Unknown Address [address] [place] [address], [address] [address] Phone [phone] Care Team Providers Care Pool Lifeguard Name Role Phone VinnyRosalind Higinio LEAD MACHINIST AUTM [phone] Problems Description No Information Available Social History [...] Unkno wn Metoprolol Tartrate 100mg Tablets Unknown [place]-3 Ethyl Esters 1gm Unknown Aleve 220mg Tablets [...] Available Procedures Date Code Description Status 12/31/2020 23145 Office/Outpatient Established Mo d MDM 30-39 Min Completed 12/31/2020 35939 X-Ray Knee Complete W/Obliques & Tunnel And/Or Standing Views Completed 12/31/2020 Inject/Drain Joint/Bursa Major C ompleted Medical Devices Description No Information Available Encounters Type Date Location Provider Dx Diagnosis Office Visit 12/31/2020 2:30p [place] ANDREAS Olmos M17.11 Unilateral primary osteoarthritis, right knee Assessments Date Code Description Provider 12/31/2020 M17.11 Unilateral primary osteoarthriti s, right knee ANDREAS Olmos Plan of Treatment 12/31/2020 - ANDREAS Olmos* M17.11 Unilateral primary osteoarthritis, right knee* New Orders:* Gel-one RT Knee Injection, Ordered: 12/31/20 * Follow up:* 8-10 weeks for rt knee recheck with IID Functional Status Description No Information Available Mental Status Description No Information Available Referrals Description No Information Available
--- OUTSIDE RECORDS SUMMARY | 2021-03-21 11:16 | CCD | Continuity of Care Document ---
Author Author Cam BETH PA Organization Unknown Address [address] [place] [address], [address] [address] Phone [phone] Care Team Providers Care Information Assistant Name Role Phone VinnyRosalind Higinio WEIGHING STATION OPERATOR AUTM [phone] Problems Description No Information Available Social History [...] Unkno wn Metoprolol Tartrate 100mg Tablets Unknown [place]-3 Ethyl Esters 1gm Unknown Aleve 220mg Tablets [...] Available Procedures Date Code Description Status 12/31/2020 09423 Office/Outpatient Established Mo d MDM 30-39 Min Completed 12/31/2020 68419 X-Ray Knee Complete W/Obliques & Tunnel And/Or [...] passed to frank to schedule sw. Created [facility], [address] [place] [address] [phone]
--- OUTSIDE RECORDS SUMMARY | 2021-03-21 11:16 | CCD | Continuity of Care Document ---
Author Author Cam WARREN Organization Unknown Address [address] [place] [address] Phone [phone] Care Team Providers Care Certified Detention Deputy Name Role Phone Clara Warren AUTM [phone] Problems Active Problems Provider Date Essential hypertension [...] Breen PA Onset: 8 Neck pain CARINA Alexander PNP Onset: 0 Pain in right knee CARINA Alexander, PNP Onset: 0 Taking medication [facility] Onset: 020 Edema CARINA Alexander, PNP [...] smoker Recreational Drug Use Denies Drug Use Allergies, Adverse Reactions, Alerts Active Allergies Criticality [...] Capsule By Mouth Every Day 90caps N40.1 CAIRNA Alexander, P [employer]QUID [employer] G[employer]ANT OPERATOR 01/22/2018 Metoprolol Tartrate 100mg Tablets take one tablet by mouth twice a day 180tabs I10 CARINA Alexander, PNP 10/23/2017 Lumigan 0.01% Solution 1 drop both eyes at bedtime 2.500ml H40.9 CARINA Alexander, PNP 10/24/19 18 Pravastatin Sodium 20mg Tablets Take One Tablet By Mouth AT Bedtime 90tabs E78.2 CARINA Alexander, P [employer]QU[employer] G[employer]ANT OPERATOR 10/05/2017 Ventolin HFA 108(90Base) mcg/Act A erosol 2 puff by mouth four times a day as needed 18gm J45.998 Rosalind Andres rae, ANP-BC, PNP Pkpgr-4-Znzn Ethyl Esters 1gm Caps ules Take Two Capsules By Mouth Twice A Day Christophercaps Tito Judd MD Alphagan P 0.1% Solution [...] Date Facility Test Result H/L Range Note CBC With Differential 12/22/2020 [facility] White Blood Count 5.9 10 Normal 4.0-10.0 [...] 36.0-66.0 Lymph % 30.0 % Normal 24.0-44.0 [place] % 9.3 % High 2.0-8.0 Eos % 0.2 % Normal 0.0-3.0 Baso % 0.0 % Normal 0.0-1.0 Immature Granulocyte % 0.5 % Normal 0-3.0 Nucleated Red Blood Cell % 0.0 % Normal 0-0 Neutrophils # 3.6 10 Normal 1.5-8.5 Lymph # 1.8 10 Normal 1.5-5.0 [place] # 0.6 10 Normal 0.0-0.8 Eos # 0.0 10 Normal 0.0-0.5 Baso # 0.0 10 Normal 0.0-0.2 Comprehensive Metabolic Profil 12/22/2020 [facility] Glucose, Fasting 113 mg/dL High 70-100 Blood [...] 3.2-5.2 Albumin/Globulin Ratio 0.9 Normal Lipid Panel 12/22/2020 [facility] Triglycerides Level 122 mg/dL Normal <150 Cholesterol Level 160 mg/dL Normal <200 HDL Cholesterol 50 mg/dL Normal >40 LDL Cholesterol 86 mg/dL Normal <100 Non-HDL-C 110 mg/dL Normal Cholesterol Risk Ratio 3.200 Normal <5 Laboratory test finding 12/22/2020 [facility] Magnesium Level 2.3 mg/dL Normal 1.8-2.4 Thyroid Stimulating Hormone 2.580 uIU/ML Normal 0.358-3.740 Hemoglobin A1c 12/22/2020 [facility] Hemoglobin A1c 6.0 % Normal 2 Estimated Average Glucose 126 mg/dL High 60-110 Comprehensive Metabolic Profil 12/22/2020 [facility] Glucose, Fasting 110 mg/dL High 70-100 Blood Urea Nitrogen 19 mg/dL High 7-18 Creatinine For GFR 1.18 mg/dL Normal 0.70-1.30 Glomerular Filtration Rate > 60.0 Normal >42 3 Sodium Level 145 mEq/L Normal 136-145 Potassium [...] GM/DL Normal 3.2-5.2 Albumin/Globulin Ratio 1.0 Normal Lipid Panel 12/22/2020 [facility] Triglycerides Level 125 mg/dL Normal <150 Cholesterol Level 165 mg/dL Normal <200 HDL Cholesterol 50 mg/dL Normal >40 LDL Cholesterol 90 mg/dL Normal <100 Non-HDL-C 115 mg/dL Normal Cholesterol Risk Ratio 3.300 Normal <5 Hemoglobin A1c 12/22/2020 [facility] Hemoglobin A1c 6.1 % Normal 4 Estimated Average Glucose 128 mg/dL High 60-110 1 Units are mL/min/1.73 m2 Chronic Kidney Disease Staging per NKF: Stage I & II GFR >=60 Normal to Mildly Decreased Stage III GFR 30-59 Moderately Decreased Stage IV GFR 15-29 Severely Decreased Stage V GFR <15 Very Little GFR Left ESRD GFR <15 on DUMPER BULK SYSTEM 2 REFERENCE RANGES: <=5.6% NORMAL 5.7-6.4% SUGGESTS IMPAIRED GLUCOSE META BOLISM/PREDIABETIC >= 6.5% ABNORMAL 3 Units are mL/min/1.73 m2 Chronic Kidney Disease Staging per NKF: Stage I & II GFR >=60 Normal to Mildly Decreased Stage III GFR 30-59 Moderately Decreased Stage IV GFR 15-29 Severely Decreased Stage V GFR <15 Very Little GFR Left ESRD GFR <15 on DUMPER BULK SYSTEM 4 REFERENCE RANGES: <=5.6% NORMAL 5.7-6.4% SUGGESTS IMPAIRED GLUCOSE META BOLISM/PREDIABETIC >= 6.5% ABNORMAL Procedures Date Code Description Status 02/07/2021 38908 Admin Patient Focused Health Ris k Assessment Instrument Completed 02/07/2021 39945 Brief Emotional/Beha v Assessment W/ Scoring Doc Per Standard Inst Completed 10/18/2020 94230 Office/Outpatient Established Mo d MDM 30-39 Min Completed 08/17/2020 11736 Office/Outpatient Established Mo d MDM 30-39 Min Completed Medical Devices Description No Information Available Encounters Description No Information Available Assessments Date Code Description Provider 02/07/2021 I10 Essential (primary) hypertension Clara Nevills, [facility] 02/07/2021 E78.2 Mixed hyperlipidemia Clara Nevil ls, [facility] 02/07/2021 R73.03 Prediabetes Clara Nevills, F [employer] OPERATOR 02/07/2021 Z00.01 Encounter for genera l adult medical examination with abnormal findings Clara Nevills, [facility] 02/07/2021 Z13.29 Encounter for screen ing for other suspected endocrine disorder Clara Nevills, [facility] 02/07/2021 J45.998 Other asthma Clara Nevills, F [employer] OPERATOR 02/07/2021 K21.9 Gastro-esophageal reflux disease without esophagitis Clara Nevills, [facility] 02/07/2021 E83.42 Hypomagnesemia Clara Nevills, F [employer] OPERATOR 02/07/2021 M25.561 Pain in right knee Clara Nevills , [facility] 02/07/2021 Z79.899 Other meterman (current) drug t herapy Clara Nevills, [facility] 10/18/2020 N28.9 Disorder of kidney and ureter, u nspecified Clara Nevills, [facility] 10/18/2020 I10 Essential (primary) hypertension Clara Nevills, [facility] 10/18/2020 E78.2 Mixed hyperlipidemia Clara Nevil ls, [facility] 10/18/2020 R73.03 Prediabetes Clara Nevills, F [employer] OPERATOR 10/18/2020 J45.998 Other asthma Clara Nevills, F [employer] OPERATOR 10/18/2020 K21.9 Gastro-esophageal reflux disease without esophagitis Clara Nevills, [facility] 10/18/2020 N40.1 Benign prostatic hyperplasia wit h lower urinary tract symptoms Clara Nevills, [employer] SUPER[employer] 10/18/2020 E83.42 Hypomagnesemia Clara Nevills, F [employer] OPERATOR 10/18/2020 M25.561 Pain in right knee Clara Nevills , [employer] 10/18/2020 M25.562 Pain in left knee Clara Nevills, [employer] 10/18/2020 Z79.899 Other meterman (current) drug t herapy Clara Nevills, [employer] SUPER[employer] 10/18/2020 F41.8 Other specified anxiety disorder s Clara Nevills, [employer] 08/17/2020 I10 Essential (primary) hypertension Clara Nevills, [employer] SUPER[employer] 08/17/2020 E78.2 Mixed hyperlipidemia Clara Nevil ls, [employer] SUPERVIS[employer] 08/17/2020 R73.03 Prediabetes Clara Nevills, F [employer] OPERATOR 08/17/2020 J45.998 Other asthma Clara Nevills, F [employer]QU[employer] OPERATOR 08/17/2020 K21.9 Gastro-esophageal reflux disease without esophagitis Clara Nevills, [employer] SUPERVIS[employer] 08/17/2020 N40.1 Benign prostatic hyperplasia wit h lower urinary tract symptoms Clara Nevills, [employer] SUPER[employer] 08/17/2020 E83.42 Hypomagnesemia Clara Nevills, F [employer] OPERATOR 08/17/2020 N28.9 Disorder of kidney and ureter, u nspecified Clara Nevills, [employer] RO[employer]ING SUPERVISOR 08/17/2020 Z79.899 Other meterman (current) drug t herapy Clara Nevills, [employer] ROLLING SUPERVISOR Plan of Treatment Future Appointment(s):* 03/17/2021 11:00 am - Claraalexandra Warren, TUMBLING AND ROLLING SUPERVISOR at [facility] 02/07/2021 - Clara Nevills, TUMBLING AND ROLLING SUPERVISOR* I10 Essential (primary) hypertension* New Labs: * Comprehensive Metabolic Profil, Scheduled: 03/21/21 * Comments:* Today, his BP is at 122/84.The patient was advised to continue with the current line of therapies. He will benefit from maintaining a low-sodium diet. We will continue to monitor. * E78.2 Mixed hyperlipidemia* New Labs:* Lipid Panel, Scheduled: 03/21/21 * Follow up:* FU in 1 month for labs and tele-med FU in a week later to review lab results. * R73.03 Prediabetes* New Labs:* Hemoglobin A1c, Scheduled: 03/21/21 * Follow up:* FU in 1 month for labs and tele-med FU in a week later to review lab results. * Z00.01 Encounter for general adult medical examination with abnormal findings * New Labs:* CBC With Differential, Scheduled: 03/21/21 * Thyroid Stimulating Hormone, Scheduled: 03/21/21 * Z13.29 Encounter for screening for other suspected endocrine disorder* New Labs:* Thyroid Stimulating Hormone, Scheduled: 03/21/21 * J45.998 Other asthma * K21.9 Gastro-esophageal reflux disease without esophagitis * E83.42 Hypomagnesemia* Follow up:* FU in 1 month for labs and tele-med FU in a week later to review lab results. * M25.561 Pain in right knee * Z79.899 Other meterman (current) drug therapy* Follow up:* FU in 1 month for labs and tele-med FU in a week later to review lab results. Functional Status Description No Information Available Mental Status Description No Information Available Referrals Refer to Reason for Referral Status [facility]t [facility]. Please evaluate and treat as needed. Thank you! Closed 11/18/2020 [address] [place], [place] [id number] [phone]
--- OUTSIDE RECORDS SUMMARY | 2021-03-21 11:16 | CCD ---
Author Author [facility] Organization [facility] Address Unknown Phone Unavailable Care Team Providers Care Unleavened Dough Mixer Name Role Phone Cherelle Uriostegui Unavailable PROBLEMS Type Condition ICD9-CM Code [id number] Code Onset Dates Condition S tatus W/U Status Risk SNOMED Code Notes Problem Chronic kidney disease, Stage III (moderate) 585.3 Active confirmed 315318951 Problem Unspecified essential hypertension 401.9 Activ e confirmed 54529295 Problem Esophageal reflux 530.81 Active confirmed 24 1001572 Problem Obesity, unspecified 278.00 Active confirmed 763271432 Problem Asthma, unspecified, unspecified status 493.90 Active confirmed 74534981 Problem Unspecified venous (peripheral) insufficiency 459.81 Active confirmed 45650502 Problem Type 2 diabetes mellitus wit hout complication, unspecified whether terminal manager insulin use E11.9 Active confirmed 056394067 Problem Degeneration of lumbar or lumbosacral intervertebral disc 722.52 Active confirmed 13071250 Problem Hypertension, unspecified type I10 Active confir med 78614293 Problem Personal history of noncompl iance with medical treatment, presenting hazards to health V15.81 Active confirmed 765973762 Problem Phimosis N47.1 Active confirmed 520968834 Problem Penile irritation N48.89 Active confirmed 37 5914861 Problem Preop testing Z01.818 Active confirmed 11080 9001 Problem Urethral stricture, unspecified N35.9 Active confi rmed 05976264 ALLERGIES Allergen (clinical drug ingredient) Drug/Non Drug Allergy do cumented on EMR Reaction Allergy Type Onset Date Status Trental Hives Drug Allergy Active Penicillin (For Allergies Use Only) Hives Drug Allerg y Active acetaminophen / oxycodone Percocet([facility] Code:[address]-73) BROKE OUT ON BACK Drug Allergy Active Sulfasalazine Sulfa Antibiotics Hives Drug Allergy Ac tive Dyazide Rash Drug Allergy Active ENCOUNTERS from 1945 to 2021-03-18 Encounter Location Date Provider Diagnosis [facility] [place] [address] [facility] [phone] [place] [address] 10 Mar, 2021 Cherelle Uriostegui Hypertension, unspecified ty pe I10 ; Encounter to discuss test results Z71.2 and Refused influenza vaccine Z28.21 IMMUNIZATIONS No Information SOCIAL HISTORY Tobacco Use: Social History Observation Description Date Details (start date - stop date) Former Smoker Sex Assigned At : Social History Observation Description Sex Assigned At Unknown Education: Question Answer Notes Level of Education: 8TH GRADE Catholic: Question Answer Notes Catholic 03 Mormon No hindu beliefs that would impact health care. Sexual Hx: Question Answer Notes Had sex in the last 12 months (vaginal, oral, or anal)? No LMP: n/a Have you ever had an STD? No Alcohol Screening: Question Answer Notes Did you have a drink containing alcohol in the past year? No Points 0 Interpretation Negative Tobacco Use: Question Answer Notes Are you a: former smoker STARTING SMOKING IN THE 1954 AND QUIT IN 1986. SMOKED ALMOST 2 PACKS PER DAY REASON FOR REFERRAL No Information VITAL SIGNS Weight 209.6 lbs Mar, Height 65 in Mar, BMI 34.88 kg/m2 Mar, Heart Rate 61 /min Mar, Respiratory Rate 18 /min Mar, Temperature 97.4 degrees Fahrenheit Mar, Oximetry 97 Mar, Blood pressure systolic 142 mm Hg Mar, Blood pressure diastolic 67 mm Hg Mar, MEDICATIONS Medication SIG (Take, Route, Frequency, Duration) Notes Start Da te End Date Status Montelukast Sodium 10 MG 1 tablet Orally Once a day for 30 day(s) Active Percocet 5-325 MG 1 tablet Orally every 6 hrs as needed for pain (MDD 4) Jun, Not-Taking Metoprolol Tartrate 100 MG 1 tablet with food Orally Twice a day for 30 day(s) Active Doxycycline Hyclate 100 MG 1 tablet Orally Once a day for 14 day (s) Jan, Not-Taking Doxycycline Hyclate 150 MG 1 tablet 1 hour prior to yo ur cystoscopy Orally Once a day for 1 days Jun, Not-Taking PreserVision AREDS 2 - as directed Orally Active Losartan Potassium 100 MG 1 tablet Orally Daily Active Ventolin HFA 108 (90 Base) MCG/ACT 1 puff as needed Inhalation ever y 4 hrs Active Lumigan 0.01 % 1 drop into affected eye in the evening Ophthalm ic Once a day Active Alphagan P 0.1 % 1 drop into affected eye Ophthalmic every 8 hrs Active Ranitidine 150 Max Strength 150 MG 1 tablet at bedtime Orally BID Not-Taking metFORMIN HCl ER 500 MG 1 tablet with morning meal Orally Once a day Active CPAP Machine Active Nystatin 436246 UNIT/GM 1 application to affected ar ea Externally to the head of the penis Twice a day for 14 day(s) Feb, Not-Taking Triamterene-HCTZ 37.5-25 MG 1 tablet in the morning Orally Once a day Not-Taking Pravastatin Sodium 20 MG 1 tablet Orally Once a day for 30 day(s) Active Hoaeb-3-wjmy Ethyl Esters 1 GM 2 capsules Orally Twice a day for 30 day(s) Active Tagamet HB 200 MG 1 tablet as needed Orally Twice a day Active Cimetidine 400 MG 1 tablet at bedtime Orally 4 xa day Not-Taking Maalox Multi Symptom Max St 400-400-40 MG/5ML 10 ml as needed Orally Four times a day Active Bactroban 2 % 1 application to affected ar ea small amount Externally bid for 30 day(s) Jun, Not-Taking Tamsulosin HCl 0.4 MG 1 capsule Orally Once a day for 30 day(s) Active PROCEDURES No Information RESULTS No Results REASON FOR VISIT 3 MONTH F/U MEDICAL (GENERAL) HISTORY Type Description Date Medical History hypertension Medical History chronic kidney disease stage III Medical History right greater than left lowe r extremity venous insufficiency with chronic venous stasis dermatitis/ulcerations Medical History asthma, mild intermittent Medical History GERD/dyspepsia-patient refuses endoscopy Medical History systolic murmur best patient refuses ech ocardiogram Medical History BLEEDING PENILE ULCER AND PHIMOSIS([place] OF THE [place]) Medical History DDD Medical History GLAUCOMA Surgical History CATARACTS REMOVED WITH BILATERAL EYE IMP LANTS 1999 Surgical History CIRCUMCISION 06/12/2018 Hospitalization History VEIN STRIPPING IN RIGHT LEG Goals Section No Information Health Concerns No Information MEDICAL EQUIPMENT No Information MENTAL STATUS No Information FUNCTIONAL STATUS No Information ASSESSMENTS Encounter Date Diagnosis Assessment Notes Treatment Notes Treatm ent Clinical Notes Mar, Hypertension, unspecified type (ICD-10 - I10) BP well controlled at this time. Advised continue current medication regimen. Advised low-salt diet, with activity as tolerated. Will continue to monitor BP at subsequent visits. Mar, Encounter to discuss test results (ICD-10 - Z71. 2) CMP, CBC, TSH, hemoglobin A1c, and lipid panel results were discussed with patient. Results stable/within normal limits, no further intervention needed at this time. Mar, Refused influenza vaccine (ICD-10 - Z28.21) Patient refused flu shot at this visit. PLAN OF TREATMENT Treatment Notes Assessment Notes Clinical Notes Hypertension, unspecified type BP well c ontrolled at this time. Advised continue current medication regimen. Advised low-salt diet, with activity as tolerated. Will continue to monitor BP at subsequent visits. Encounter to discuss test results CMP, C BC, TSH, hemoglobin A1c, and lipid panel results were discussed with patient. Results stable/within normal limits, no further intervention needed at this time. Refused influenza vaccine Patient refuse d flu shot at this visit. Next Appt Details 6 Months, prn Reason:f/u Provider Name:Cherelle Uriostegui, 2021-09-14 10:00:00 AM, [address] [facility], , [place], [address], Follow Up:6 Months, prnf/u Insurance Providers Payer Name Payer Address Payer Phone Insured Name Patient Relati onship to Insured Coverage Start Date Coverage End Date GELYA ARVIND [address] [address] [facility] [id number] SHERYL READ self MEDICAID [place] [address] [facility] [id number] SHERYL READ self
--- OUTSIDE RECORDS SUMMARY | 2021-03-21 11:17 | CCD | Continuity of Care Document ---
Author Author Cam WARREN Organization Unknown Address [address] [place] [address] Phone [phone] Care Team Providers Care Legend Maker Name Role Phone Clara Warren AUTM [phone] Problems Active Problems Provider Date Essential hypertension [...] Maxim Breen PA Onset: 8 Anxiety state ANDREAS Chavez Onset: 8 Neck pain CARINA Alexander, PNP Onset: 0 Pain in right knee CARINA Alexander, PNP Onset: 0 Taking medication [facility] Onset: 020 Edema CARINA Alexander, PNP [...] Use Allergies, Adverse Reactions, Alerts Active Allergies Reaction Severity Comments Date Penicillin Nausea and Vomiting Severe Cold Sweat 01/23/20 18 Sulfa Antibiotics Throat Swelling Moderate Has been able to juventino erate Tamsulosin 01/22/2018 Medications Active Medications SIG Qnty Indications Ordering Provide r Date Metformin HCL ER 500mg Tablets ER 24HR 1 tab by mouth daily with breakfast 90tabs RONALD Alexander PJakiBC, PNP 05/13/2020 Famotidine 20mg Tablets take one [...] Every Day 90caps N40.1 CARINA Alexander, P [employer] SUPPORT SPECIALIST 01/22/2018 Metoprolol Tartrate 100mg Tablets take one tablet by mouth twice a day 180tabs I10 CARINA Alexander, PNP 10/23/2017 Lumigan 0.01% Solution 1 drop both eyes at bedtime 2.500ml H40.9 CARINA Alexander, PNP 10/24/19 18 Pravastatin Sodium 20mg Tablets Take One Tablet By Mouth AT Bedtime 90tabs E78.2 CARINA Alexander, P [employer]IDENTIAL SUPPORT SPECIALIST 10/05/2017 Ventolin HFA 108(90Base) mcg/Act A erosol 2 puff by mouth four times a day as needed 18gm J45.998 Rosalind Andres rae, ANP-BC, PNP Ucjlc-[id number] Ethyl Esters 1gm Caps ules take two capsules by mouth twice a day otc 60caps Hammad Judd MD Alphagan P 0.1% Solution Instill One Drop Twice A Day In Each Eye Unknown 00 Latanoprost 0.005% Solution Instill 1 Drop In Each Eye Every Evening Unknown Maalox Multi Symptom Maximum Strength by mouth as needed Unknown Immunizations Description No Information Available Vital Signs Date Vital Result Comment 10/18/2020 11:17am BP Systolic 118 mmHg BP Diastolic 70 mmHg Heart Rate 72 /min Body Temperature 96.4 F Respiratory Rate 20 /min O2 % BldC Oximetry 97 % Weight 201.50 lb Weight 91.400 kg Height 64 inches 5'4" BMI (Body Mass Index) 34.6 kg/m2 BSA (Body Surface Area) 1.96 m2 08/17/2020 10:24am BP Systolic 128 mmHg BP Diastolic 78 mmHg Heart Rate 82 /min Body Temperature 96.8 F Respiratory Rate 18 /min O2 % BldC Oximetry 97 % Weight 201.00 lb Weight 91.174 kg Height 64 inches 5'4" BMI (Body Mass Index) 34.5 kg/m2 BSA (Body Surface Area) 1.96 m2 Results Test Acquired Date Facility Test Result H/L Range Note Comprehensive Metabolic Profil 12/22/2020 [facility] Glucose, Fasting 113 mg/dL High [...] Albumin/Globulin Ratio 0.9 Normal Lipid Panel 12/22/2020 [facility] Triglycerides Level 122 mg/dL Normal <150 Cholesterol Level 160 mg/dL Normal <200 HDL Cholesterol 50 mg/dL Normal >40 LDL Cholesterol 86 mg/dL Normal <100 Non-HDL-C 110 mg/dL Normal Cholesterol Risk Ratio 3.200 Normal <5 Laboratory test finding 12/22/2020 [facility] Magnesium Level 2.3 mg/dL Normal 1.8-2.4 Thyroid Stimulating Hormone 2.580 uIU/ML Normal 0.358-3.740 Hemoglobin A1c 12/22/2020 [facility] Hemoglobin A1c 6.0 % Normal 2 Estimated Average Glucose 126 mg/dL High 60-110 Comprehensive Metabolic Profil 12/22/2020 [facility] Glucose, Fasting 110 mg/dL High [...] Albumin/Globulin Ratio 1.0 Normal Lipid Panel 12/22/2020 [facility] Triglycerides Level 125 mg/dL Normal <150 Cholesterol Level 165 mg/dL Normal <200 HDL Cholesterol 50 mg/dL Normal >40 LDL Cholesterol 90 mg/dL Normal <100 Non-HDL-C 115 mg/dL Normal Cholesterol Risk Ratio 3.300 Normal <5 Hemoglobin A1c 12/22/2020 [facility] Hemoglobin A1c 6.1 % Normal 4 Estimated Average Glucose 128 mg/dL High 60-110 CBC With Differential 12/22/2020 [facility] White Blood Count 5.9 10 [...] 36.0-66.0 Lymph % 30.0 % Normal 24.0-44.0 [place] % 9.3 % High 2.0-8.0 Eos % 0.2 % Normal 0.0-3.0 Baso % 0.0 % Normal 0.0-1.0 Immature Granulocyte % 0.5 % Normal 0-3.0 Nucleated Red Blood Cell % 0.0 % Normal 0-0 Neutrophils # 3.6 10 Normal 1.5-8.5 Lymph # 1.8 10 Normal 1.5-5.0 [place] # 0.6 10 Normal 0.0-0.8 Eos # 0.0 10 Normal 0.0-0.5 Baso # 0.0 10 Normal 0.0-0.2 CBC With Differential 07/28/2020 [facility] White Blood Count 6.1 10 Normal 4.0-10.0 Red Blood Count 4.41 10 Normal 4.30-6.10 Hemoglobin 13.4 g/dL Low 13.5-17.5 Hematocrit 40.4 % Low 42.0-52.0 Mean Corpuscular Volume 91.6 fl Normal 80.0-96.0 Mean Corpuscular Hemoglobin 30.4 pg Normal 27.0-33.0 Mean Corpuscular HGB Conc 33.2 g/dL Normal 32.0-36.5 Red Cell Distribution Width 13.2 % Normal 11.5-14.5 Platelet Count, Automated 177 10 Normal 150-450 Neutrophils % 54.7 % Normal 36.0-66.0 Lymph % 31.9 % Normal 24.0-44.0 [place] % 12.9 % High 2.0-8.0 Eos % 0.0 % Normal 0.0-3.0 Baso % 0.2 % Normal 0.0-1.0 Immature Granulocyte % 0.3 % Normal 0-3.0 Nucleated Red Blood Cell % 0.0 % Normal 0-0 Neutrophils # 3.3 10 Normal 1.5-8.5 Lymph # 1.9 10 Normal 1.5-5.0 [place] # 0.8 10 Normal 0.0-0.8 Eos # 0.0 10 Normal 0.0-0.5 Baso # 0.0 10 Normal 0.0-0.2 Hemoglobin A1c 07/28/2020 [facility] Hemoglobin A1c 5.9 % Normal 5 Estimated Average Glucose 123 mg/dL High 60-110 Comprehensive Metabolic Profil 07/28/2020 [facility] Glucose, Fasting 109 mg/dL High 70-100 Blood Urea Nitrogen 22 mg/dL High 7-18 Creatinine For GFR 1.41 mg/dL High 0.70-1.30 Glomerular Filtration Rate 52.0 Normal >42 6 Sodium Level 145 mEq/L Normal 136-145 Potassium Serum 4.4 mEq/L Normal 3.5-5.1 Chloride Level 111 mEq/L High 98-107 Carbon Dioxide Level 28 mEq/L Normal 21-32 Anion Gap 6 mEq/L Low 8-16 Calcium Level 9.5 mg/dL Normal 8.8-10.2 Ast/Sgot 14 U/L Normal 7-37 Alt/SGPT 19 U/L Normal 12-78 Alkaline Phosphatase 96 U/L Normal 45-117 Bilirubin,Total 0.6 mg/dL Normal 0.2-1.0 Total Protein 7.4 GM/DL Normal 6.4-8.2 Albumin 3.7 GM/DL Normal 3.2-5.2 Albumin/Globulin Ratio 1.0 Normal Lipid Panel 07/28/2020 [facility] Triglycerides Level 188 mg/dL High <150 Cholesterol Level 188 mg/dL Normal <200 HDL Cholesterol 43 mg/dL Normal >40 LDL Cholesterol 107 mg/dL High <100 Non-HDL-C 145 mg/dL Normal Cholesterol Risk Ratio 4.372 Normal <5 Laboratory test finding 07/28/2020 [facility] Magnesium Level 2.1 mg/dL Normal 1.8-2.4 Thyroid Stimulating Hormone 1.640 uIU/ML Normal 0.358-3.740 1 Units are mL/min/1.73 m2 Chronic Kidney Disease Staging per NKF: Stage I & II GFR >=60 Normal to Mildly Decreased Stage III GFR 30-59 Moderately Decreased Stage IV GFR 15-29 Severely Decreased Stage V GFR <15 Very Little GFR Left ESRD GFR <15 on CHILD PSYCHOLOGY TEACHER 2 REFERENCE RANGES: <=5.6% NORMAL 5.7-6.4% SUGGESTS IMPAIRED GLUCOSE META BOLISM/PREDIABETIC >= 6.5% ABNORMAL 3 Units are mL/min/1.73 m2 Chronic Kidney Disease Staging per NKF: Stage I & II GFR >=60 Normal to Mildly Decreased Stage III GFR 30-59 Moderately Decreased Stage IV GFR 15-29 Severely Decreased Stage V GFR <15 Very Little GFR Left ESRD GFR <15 on CHILD PSYCHOLOGY TEACHER 4 REFERENCE RANGES: <=5.6% NORMAL 5.7-6.4% SUGGESTS IMPAIRED GLUCOSE META BOLISM/PREDIABETIC >= 6.5% ABNORMAL 5 REFERENCE RANGES: <=5.6% NORMAL 5.7-6.4% SUGGESTS IMPAIRED GLUCOSE META BOLISM/PREDIABETIC >= 6.5% ABNORMAL 6 Units are mL/min/1.73 m2 Chronic Kidney Disease Staging per NKF: Stage I & II GFR >=60 Normal to Mildly Decreased Stage III GFR 30-59 Moderately Decreased Stage IV GFR 15-29 Severely Decreased Stage V GFR <15 Very Little GFR Left ESRD GFR <15 on CHILD PSYCHOLOGY TEACHER Procedures Date Code Description Status 10/18/2020 96064 Office/Outpatient Established Mo d MDM 30-39 Min Completed 08/17/2020 97415 Office/Outpatient Established Mo d MDM 30-39 Min Completed Medical Devices Description No Information Available Encounters Description No Information Available Assessments Date Code Description Provider 10/18/2020 N28.9 Disorder of kidney and ureter, u nspecified Clara Briana, [facility] [place] 10/18/2020 I10 Essential (primary) hypertension Clara Briana, [facility] [place] 10/18/2020 E78.2 Mixed hyperlipidemia Clara Wanda , [facility] [place] 10/18/2020 R73.03 Prediabetes Clara Zita Warren [employer] SUPPORT SPECIALIST 10/18/2020 J45.998 Other asthma Clara Zita Warren [employer]IDENT[employer] SUPPORT SPECIALIST 10/18/2020 K21.9 Gastro-esophageal reflux disease without esophagitis Clara Nevills, [employer] 10/18/2020 N40.1 Benign prostatic hyperplasia wit h lower urinary tract symptoms Clara Nevills, [employer] 10/18/2020 E83.42 Hypomagnesemia Clara Nevills, F [employer]IAL SUPPORT SPECIALIST 10/18/2020 M25.561 Pain in right knee Clara Nevills , [employer] 10/18/2020 M25.562 Pain in left knee Clara Nevills, [employer] 10/18/2020 Z79.899 Other skilled nursing (current) drug t herapy Clara Nevills, [employer] 10/18/2020 F41.8 Other specified anxiety disorder s Clara Nevills, [employer] 08/17/2020 I10 Essential (primary) hypertension Clara Nevills, [employer] 08/17/2020 E78.2 Mixed hyperlipidemia Clara Nevil ls, [facility] [place] 08/17/2020 R73.03 Prediabetes Clara Nevills, F [employer] SUPPORT SPECIALIST 08/17/2020 J45.998 Other asthma Clara Nevills, F [employer]IDENTIAL SUPPORT SPECIALIST 08/17/2020 K21.9 Gastro-esophageal reflux disease without esophagitis Clara Nevills, [employer] 08/17/2020 N40.1 Benign prostatic hyperplasia wit h lower urinary tract symptoms Clara Nevills, [employer] 08/17/2020 E83.42 Hypomagnesemia Clara Nevills, F [employer]IDENTIAL SUPPORT SPECIALIST 08/17/2020 N28.9 Disorder of kidney and ureter, u nspecified Clara Nevills, [facility] [place] 08/17/2020 Z79.899 Other skilled nursing (current) drug t herapy Clara Nevills, [employer] Plan of Treatment Future Appointment(s):* 01/18/2021 11:20 am - Claraalexandra Warren, [facility] at [facility] 10/18/2020 - Clara Nevills, [employer]* N28.9 Disorder of kidney and ureter, unspecified* Comments:* His laboratory reports were reviewed in detail.BUN high at 25, creatinine high at 1.31.He was given a referral to Nephrology for evaluation and management of his renal insufficiency but has been unable to keep up the referral. He was advised to follow up with Nephro on his referral and have it evaluated.We will continue to monitor. * I10 Essential (primary) hypertension* Comments:* Today, his BP is at 118/70.The patient was advised to continue with the current line of therapies. He will benefit from maintaining a low-sodium diet. We will continue to monitor. * E78.2 Mixed hyperlipidemia* Comments:* Labs reviewed with the patient in detail.Lipid panel showed:TRG high at 250.CHOL at 198.HDL at 41.LDL high at 107.He will continue with his current regimen. He was encouraged to maintain a low cholesterol diet and a regular exercise regimen.LDL and TRG elevated, discussed dietary changes to improve, avoiding meat and dairy products, avoiding processed foodsDecrease saturated Fats (meat, dairy products and processed foods)Increase Unsaturated fats (fish, plants, nuts, seeds, beans and vegetable oils)Increase aerobic exerciseIncrease water intake Read Labels * Follow up:* FU in 3 months, fasting labs a week prior. * R73.03 Prediabetes* Comments:* Fasting glucose high at 110 with an A1c at 6.The patient was advised to continue with his current medication regimen. He will benefit from maintaining a diabetic diet and a regular exercise regimen. We will continue to monitor. * J45.998 Other asthma* Comments:* Currently stable.To continue current medication and plan of care.We will continue to monitor. * K21.9 Gastro-esophageal reflux disease without esophagitis* Comments:* The patient was advised to continue with current medication. Avoid spicy food and control diet as advised. * N40.1 Benign prostatic hyperplasia with lower urinary tract symptoms* Comments:* To continue current medication and plan of care.We will continue to monitor. * E83.42 Hypomagnesemia* Comments:* Magnesium at 2.2. To continue current supplement and plan of care.We will continue to monitor. * M25.561 Pain in right knee* Comments:* He was given a referral to Ortho for evaluation and treatment of his bilateral knee pain, but has been unable to keep up the referral. He was advised to follow up with ortho on his referral and have it evaluated.We will continue to monitor. * M25.562 Pain in left knee* Comments:* He was given a referral to Ortho for evaluation and treatment of his bilateral knee pain, but has been unable to keep up the referral. He was advised to follow up with ortho on his referral and have it evaluated.We will continue to monitor. * Z79.899 Other intermediate card tender (current) drug therapy* Comments:* Patient to continue to follow the current plan of care and to look for any new or worsening symptoms. We will continue to monitor through periodic blood work. * Follow up:* FU in 3 months, fasting labs a week prior. * F41.8 Other specified anxiety disorders* Comments:* To have the routine labs done to evaluate further.Further plans to follow the lab results.We will continue to monitor. Functional Status Description No Information Available Mental Status Description No Information Available Referrals Refer to Reason for Referral Status Appt Date [facility] PAudieC. Renal insuffic iency. Please evaluate and treat as needed. Thank you! Closed 11/18/2020 [id number] [place] [address] [phone]
--- OUTSIDE RECORDS SUMMARY | 2021-03-21 11:17 | CCD ---
Author Author [facility] Organization [facility] Address Unknown Phone Unavailable Care Team Providers Care Environmental Technician Name Role Phone Nevills, C Clara RECOVERY OPERATOR HELPER Unavailable Unavailable Nevills, C Clara RECOVERY OPERATOR HELPER Unavailable Unavailable Nevills, C Clara RECOVERY OPERATOR HELPER Unavailable Unavailable Nevills, C Clara RECOVERY OPERATOR HELPER Unavailable Unavailable Nevills, C Clara RECOVERY OPERATOR HELPER Unavailable Unavailable Nevills, C Clara RECOVERY OPERATOR HELPER Unavailable Unavailable Nevills, C Clara RECOVERY OPERATOR HELPER Unavailable Unavailable Nevills, C Clara RECOVERY OPERATOR HELPER Unavailable Unavailable Nevills, C Clara RECOVERY OPERATOR HELPER Unavailable Unavailable Nevills, C Clara RECOVERY OPERATOR HELPER Unavailable Unavailable Nevills, C Clara RECOVERY OPERATOR HELPER Unavailable Unavailable Nevills, C Clara RECOVERY OPERATOR HELPER Unavailable Unavailable Nevills, C Clara RECOVERY OPERATOR HELPER Unavailable Unavailable Nevills, C Clara RECOVERY OPERATOR HELPER Unavailable Unavailable Nevills, C Clara RECOVERY OPERATOR HELPER Unavailable Unavailable Nevills, C Clara RECOVERY OPERATOR HELPER Unavailable Unavailable Nevills, C Clara RECOVERY OPERATOR HELPER Unavailable Unavailable Nevills, C Clara RECOVERY OPERATOR HELPER Unavailable Unavailable Nevills, C Clara RECOVERY OPERATOR HELPER Unavailable Unavailable Nevills, C Clara RECOVERY OPERATOR HELPER Unavailable Unavailable Nevills, C Clara RECOVERY OPERATOR HELPER Unavailable Unavailable Nevills, C Clara RECOVERY OPERATOR HELPER Unavailable Unavailable Nevills, C Clara RECOVERY OPERATOR HELPER Unavailable Unavailable Nevills, C Clara RECOVERY OPERATOR HELPER Unavailable Unavailable Nevills, C Clara RECOVERY OPERATOR HELPER Unavailable Unavailable Nevills, C Clara RECOVERY OPERATOR HELPER Unavailable Unavailable Nevills, C Clara RECOVERY OPERATOR HELPER Unavailable Unavailable Nevills, C Clara RECOVERY OPERATOR HELPER Unavailable Unavailable Nevills, C Clara RECOVERY OPERATOR HELPER Unavailable Unavailable Nevills, C Clara RECOVERY OPERATOR HELPER Unavailable Unavailable Nevills, C Clara RECOVERY OPERATOR HELPER Unavailable Unavailable Nevills, C Clara RECOVERY OPERATOR HELPER Unavailable Unavailable Nevills, C Clara RECOVERY OPERATOR HELPER Unavailable Unavailable Nevills, C Clara RECOVERY OPERATOR HELPER Unavailable Unavailable DRAZEK, I CHAD PA Unavailable Unavailable DRAZEK, I CHAD PA Unavailable Unavailable DRAZEK, I CHAD PA Unavailable Unavailable DRAZEK, I CHAD PA Unavailable Unavailable DRAZEK, I CHAD PA Unavailable Unavailable DRAZEK, I CHAD PA Unavailable Unavailable DRAZEK, I CHAD PA Unavailable Unavailable DRAZEK, I CHAD PA Unavailable Unavailable DRAZEK, I CHAD PA Unavailable Unavailable DRAZEK, I CHAD PA Unavailable Unavailable DRAZEK, I CHAD PA Unavailable Unavailable DRAZEK, I CHAD PA Unavailable Unavailable DRAZEK, I CHAD PA Unavailable Unavailable DRAZEK, I CHAD PA Unavailable Unavailable DRAZEK, I CHAD PA Unavailable Unavailable DRAZEK, I CHAD PA Unavailable Unavailable DRAZEK, I CHAD PA Unavailable Unavailable DRAZEK, I CHAD PA Unavailable Unavailable DRAZEK, I CHAD PA Unavailable Unavailable DRAZEK, I CHAD PA Unavailable Unavailable DRAZEK, I CHAD PA Unavailable Unavailable DRAZEK, I CHAD PA Unavailable Unavailable DRAZEK, I CHAD PA Unavailable Unavailable DRAZEK, I CHAD PA Unavailable Unavailable DRAZEK, I CHAD PA Unavailable Unavailable DRAZEK, I CHAD PA Unavailable Unavailable DRAZEK, I CHAD PA Unavailable Unavailable DRAZEK, I CHAD PA Unavailable Unavailable DRAZEK, I CHAD PA Unavailable Unavailable DRAZEK, I CHAD PA Unavailable Unavailable Vinny, Corine Rosalind ANP-BC Unavailable Unavailable Vinny, Corine Rosalind ANP-BC Unavailable Unavailable Vinny, Corine Rosalind ANP-BC Unavailable Unavailable Vinny, Corine Rosalind ANP-BC Unavailable Unavailable Vinyn, Corine Rosalind ANP-BC Unavailable Unavailable Vinny, Corine Rosalind ANP-BC Unavailable Unavailable Vinny, Corine Rosalind ANP-BC Unavailable Unavailable Vinny, Corine Rosalind ANP-BC Unavailable Unavailable Vinny, Corine Rosalind ANP-BC Unavailable Unavailable Vinny, Corine Rosalind ANP-BC Unavailable Unavailable Vinny, Corine Rosalind ANP-BC Unavailable Unavailable Vinny, Corine Rosalind ANP-BC Unavailable Unavailable Vinny, Corine Rosalind ANP-BC Unavailable Unavailable Vinny, Corine Rosalind ANP-BC Unavailable Unavailable Vinny, Corine Rosalind ANP-BC Unavailable Unavailable Vinny, Corine Rosalind ANP-BC Unavailable Unavailable Vinny, Corine Rosalind ANP-BC Unavailable Unavailable Vinny, Corine Rosalind ANP-BC Unavailable Unavailable Vinny, Corine Rosalind ANP-BC Unavailable Unavailable Vinny, Corine Rosalind ANP-BC Unavailable Unavailable Vinny, Corine Rosalind ANP-BC Unavailable Unavailable Vinny, Corine Rosalind ANP-BC Unavailable Unavailable Vinny, Corine Rosalind ANP-BC Unavailable Unavailable Vinny, Corine Rosalind ANP-BC Unavailable Unavailable Vinny, Corine Rosalind ANP-BC Unavailable Unavailable Vinny, Corine Rosalind ANP-BC Unavailable Unavailable Vinny, Corine Rosalind ANP-BC Unavailable Unavailable Vinny, Corine Rosalind ANP-BC Unavailable Unavailable Vinny, Corine Rosalind ANP-BC Unavailable Unavailable Vinny, Corine Rosalind ANP-BC Unavailable Unavailable Vinny, Corine Rosalind ANP-BC Unavailable Unavailable Vinny, Corine Rosalind ANP-BC Unavailable Unavailable Vinny, Corine Rosalind ANP-BC Unavailable Unavailable Vinny, Corine Rosalind ANP-BC Unavailable Unavailable Vinny, Corine Rosalind ANP-BC Unavailable Unavailable Vinny, Corine Rosalind ANP-BC Unavailable Unavailable Vinny, Corine Rosalind ANP-BC Unavailable Unavailable Vinny, Corine Rosalind ANP-BC Unavailable Unavailable Vinny, Corine Rosalind ANP-BC Unavailable Unavailable Vinny, Corine Rosalind ANP-BC Unavailable Unavailable Vinny, Corine Rosalind ANP-BC Unavailable Unavailable Vinny, Corine Rosalind ANP-BC Unavailable Unavailable Vinny, Corine Rosalind ANP-BC Unavailable Unavailable Vinny, Corine Rosalind ANP-BC Unavailable Unavailable Vinny, Corine Rosalind ANP-BC Unavailable Unavailable Vinny, Corine Rosalind ANP-BC Unavailable Unavailable Vinny, Corine Rosalind ANP-BC Unavailable Unavailable Vinny, Corine Rosalind ANP-BC Unavailable Unavailable Vinny, Corine Rosalind ANP-BC Unavailable Unavailable Vinny, Corine Rosalind ANP-BC Unavailable Unavailable Vinny, Corine Rosalind ANP-BC Unavailable Unavailable Vinny, Corine Rosalind ANP-BC Unavailable Unavailable Vinny, Corine Rosalind ANP-BC Unavailable Unavailable Vinny, Corine Rosalind ANP-BC Unavailable Unavailable Vinny, Corine Rosalind ANP-BC Unavailable Unavailable Vinny, Corine Rosalind ANP-BC Unavailable Unavailable Vinny, Corine Rosalind ANP-BC Unavailable Unavailable Vinny, Corine Rosalind ANP-BC Unavailable Unavailable Corine Casillasn ANP-BC Unavailable Unavailable Vinny, Corine Tyn ANP-BC Unavailable Unavailable Vinny, Corine Tyn ANP-BC Unavailable Unavailable Vinny, Corine Tyn ANP-BC Unavailable Unavailable Vinny, Corine Tyn ANP-BC Unavailable Unavailable Vinny, Corine Tyn ANP-BC Unavailable Unavailable Vinny, Corine Tyn ANP-BC Unavailable Unavailable Vinny, Corine Tyn ANP-BC Unavailable Unavailable Ta, [place] Navya Unavailable Unavailable Ta, [place] Navya Unavailable Unavailable Ta, [place] Navya Unavailable Unavailable Ta, [place] Navya Unavailable Unavailable Ta, [place] Navya Unavailable Unavailable Ta, [place] Navya Unavailable Unavailable Ta, [place] Navya Unavailable Unavailable Ta, [place] Navya Unavailable Unavailable Ta, [place] Navya Unavailable Unavailable Ta, [place] Navya Unavailable Unavailable Ta, [place] Navya Unavailable Unavailable Ta, [place] Navya Unavailable Unavailable Ta, [place] Navya Unavailable Unavailable Re-disclosure Warning The records that you are about to access may contain information from federally-assisted alcohol or drug abuse programs. If such information is present, then the following federally mandated warning applies: This information has been disclosed to you from records protected by federal confidentiality rules (42 CFR part 2). The federal rules prohibit you from making any further disclosure of this information unless further disclosure is expressly permitted by the written consent of the person to whom it pertains or as otherwise permitted by 42 CFR part 2. A general authorization for the release of medical or other information is NOT sufficient for this purpose. The Federal rules restrict any use of the information to criminally investigate or prosecute any alcohol or drug abuse patient.The records that you are about to access may contain highly sensitive health information, the redisclosure of which is protected by Article 27-F of the [facility] Public Health law. If you continue you may have access to information: Regarding HIV / AIDS; Provided by facilities licensed or operated by the [facility] Office of Mental Health; or Provided by the [facility] Office for People With Developmental Disabilities. If such information is present, then the following [facility] mandated warning applies: This information has been disclosed to you from confidential records which are protected by state law. State law prohibits you from making any further disclosure of this information without the specific written consent of the person to whom it pertains, or as otherwise permitted by law. Any unauthorized further disclosure in violation of state law may result in a fine or custodial sentence or both. A general authorization for the release of medical or other information is NOT sufficient authorization for further disc losure. Allergies and Adverse Reactions Type Description Substance Reaction Status Data Source(s ) Allergy to substance Allergy to substance Allergy to substance [facility] ([facility]) Family History Family Member Name Family Member Gender Family Member Status Date o f Status Description Data Source(s) Unknown Male Problem [facility] ([facility]) Unknown Male Problem [facility] ([facility] () Encounters Encounter Providers Location Date Indications Data Source(s ) OFFICE OUTPATIENT VISIT 15 MINUTES Attender: CHAD JOHNS Phys ical Therapy 03/03/2021 10:30:00 AM EDT MEDENT ([facility]) Outpatient Attender: Clara Warren NPConsultant: Rosalind LIM 02/07/2021 11:04:00 AM EDT - 02/07/2021 11:04:00 AM EDT [facility] Outpatient Attender: CHAD JOHNS Physical Therapy 12/31/2020 0 2:30:00 PM EDT [facility] ([facility]) Out[place] [address] [facility] [address] 12/14/2020 12:00:00 AM EDT eCW1 ([facility]) Outpatient Attender: Clara Warren NPConsultant: Rosalind HURSTBC 10/18/2020 11:09:00 AM EDT - 10/18/2020 11:09:00 AM EDT [facility] Unknown [address] [facility] [address] 10/13/2020 12:00:00 AM EDT eCW1 ([facility]) AMBER Forbes-C: [address] [place] [phone], Ph. Attender: Navya [place] - [facility] Medical 09/01/2020 12:00:00 AM EDT [place] ([facility]) Outpatient Attender: Clara Briana NPConsultant: Rosalind MARTI-BC 08/17/2020 10:04:00 AM EDT - 08/17/2020 10:04:00 AM EDT [facility] Outpatient Attender: Rosalind MARTI-BCConsultant: Rosalind mars ANP-BC 05/13/2020 08:53:00 AM EST - 05/13/2020 08:53:00 AM EST [facility] Outpatient Attender: Rosalind MARTI-BCConsultant: Rosalind mars ANP-BC 02/12/2020 08:43:00 AM EDT - 02/12/2020 08:43:00 AM EDT [facility] Immunizations Vaccine Date Status Description Data Source(s) COVID-19 vaccine, vector-nr, [id number], PF, 0.5 mL 09/02/2020 01:57:22 PM EDT completed 10.5 mL [place] ([facility]) COVID-19 VACCINE Brittney 09/02/2020 12:00:00 AM EDT completed [facility] Vaccine Series Complete: YESThis Data wa s Submitted to [facility] Via [employer]. Medications Medication Brand Name Start Date Product Form Dose Route Admi nistrative Instructions Pharmacy Instructions Status Indications Reaction Description Data Source(s) Hydrochlorothiazide 12.5 MG Oral Tablet HYDROCHLOROTHIAZIDE 03/01/2021 12:00:00 AM EDT tablet 45 TAKE ONE TABLET BY MOUTH MARGO RY OTHER DAY TAKE ONE TABLET BY MOUTH EVERY OTHER DAY SOLD: 03/06/2021 [facility] 1 gram 02/19/2021 12:00:00 AM EDT capsule 60 TAKE TWO CAPSULES BY MOUTH TWICE A DAY TAKE TWO CAPSULES BY MOUTH TWICE A DAY SOLD: 02/22/2021 [facility] 1 gram 02/19/2021 12:00:00 AM EDT capsule 60 TAKE TWO CAPSULES BY MOUTH TWICE A DAY TAKE TWO CAPSULES BY MOUTH TWICE A DAY SOLD: 03/06/2021 [facility] 0.005 % 01/19/2021 12:00:00 AM EDT drops 2 INSTILL ONE DROP AT BEDTIME IN EACH EYE INSTILL ONE DROP AT BEDTIME IN EACH EYE SOLD: 01/20/2021 [facility] 0.005 % 01/19/2021 12:00:00 AM EDT drops 2 INSTILL ONE DROP AT BEDTIME IN EACH EYE INSTILL ONE DROP AT BEDTIME IN EACH EYE SOLD: 02/10/2021 [facility] 0.005 % 01/19/2021 12:00:00 AM EDT drops 2 INSTILL ONE DROP AT BEDTIME IN EACH EYE INSTILL ONE DROP AT BEDTIME IN EACH EYE SOLD: 03/06/2021 [facility] 1 gram 01/05/2021 12:00:00 AM EDT capsule 60 TAKE TWO CAPSULES BY MOUTH TWICE A DAY TAKE TWO CAPSULES BY MOUTH TWICE A DAY SOLD: 01/06/2021 [facility] 1 gram 01/05/2021 12:00:00 AM EDT capsule 60 TAKE TWO CAPSULES BY MOUTH TWICE A DAY TAKE TWO CAPSULES BY MOUTH TWICE A DAY SOLD: 01/20/2021 [facility] 1 gram 01/05/2021 12:00:00 AM EDT capsule 60 TAKE TWO CAPSULES BY MOUTH TWICE A DAY TAKE TWO CAPSULES BY MOUTH TWICE A DAY SOLD: 02/06/2021 [facility] 0.1 % 12/30/2020 12:00:00 AM EDT drops 5 INSTILL ONE DROP TWICE A DAY IN EACH EYE INSTILL ONE DROP TWICE A DAY IN EACH EYE SOLD: 01/02/2021 [facility] 0.01 % 12/30/2020 12:00:00 AM EDT drops 2 INSTILL 1 DROP IN EACH EYE IN THE EVENING INSTILL 1 DROP IN EACH EYE IN THE EVENING SOLD: 01/02/2021 [facility] 0.01 % 12/30/2020 12:00:00 AM EDT drops 2 INSTILL 1 DROP IN EACH EYE IN THE EVENING INSTILL 1 DROP IN EACH EYE IN THE EVENING SOLD: 03/06/2021 [facility] 0.1 % 12/30/2020 12:00:00 AM EDT drops 5 INSTILL ONE DROP TWICE A DAY IN EACH EYE INSTILL ONE DROP TWICE A DAY IN EACH EYE SOLD: 01/20/2021 [facility] 0.1 % 12/30/2020 12:00:00 AM EDT drops 5 INSTILL ONE DROP TWICE A DAY IN EACH EYE INSTILL ONE DROP TWICE A DAY IN EACH EYE SOLD: 02/10/2021 [facility] 0.01 % 12/30/2020 12:00:00 AM EDT drops 2 INSTILL 1 DROP IN EACH EYE IN THE EVENING INSTILL 1 DROP IN EACH EYE IN THE EVENING SOLD: 02/10/2021 [facility] 0.01 % 12/30/2020 12:00:00 AM EDT drops 2 INSTILL 1 DROP IN EACH EYE IN THE EVENING INSTILL 1 DROP IN EACH EYE IN THE EVENING SOLD: 01/20/2021 [facility] 0.1 % 12/30/2020 12:00:00 AM EDT drops 5 INSTILL ONE DROP TWICE A DAY IN EACH EYE INSTILL ONE DROP TWICE A DAY IN EACH EYE SOLD: 03/06/2021 [facility] Famotidine 20 MG Oral Tablet FAMOTIDINE 12/22/2020 12:00:00 AM EDT tab let 60 TAKE ONE TABLET BY MOUTH TWICE A DAY TAKE ONE TABLET BY MOUTH TWICE A DAY SOLD: 01/20/2021 [facility] montelukast 10 MG Oral Tablet MONTELUKAST SODIUM 12/22/2020 12:0 0:00 AM EDT tablet 90 TAKE ONE TABLET BY MOUTH EVERY D AY TAKE ONE TABLET BY MOUTH EVERY DAY SOLD: 12/23/2020 [facility] Famotidine 20 MG Oral Tablet FAMOTIDINE 12/22/2020 12:00:00 AM EDT tab let 60 TAKE ONE TABLET BY MOUTH TWICE A DAY TAKE ONE TABLET BY MOUTH TWICE A DAY SOLD: 02/22/2021 [facility] Famotidine 20 MG Oral Tablet FAMOTIDINE 12/22/2020 12:00:00 AM EDT tab let 60 TAKE ONE TABLET BY MOUTH TWICE A DAY TAKE ONE TABLET BY MOUTH TWICE A DAY SOLD: 12/23/2020 [facility] 1 gram 10/18/2020 12:00:00 AM EDT capsule 60 TAKE TWO CAPSULES BY MOUTH TWICE A DAY TAKE TWO CAPSULES BY MOUTH TWICE A DAY SOLD: 10/29/2020 [facility] 1 gram 10/18/2020 12:00:00 AM EDT capsule 60 TAKE TWO CAPSULES BY MOUTH TWICE A DAY TAKE TWO CAPSULES BY MOUTH TWICE A DAY SOLD: 12/23/2020 [facility] 1 gram 10/18/2020 12:00:00 AM EDT capsule 60 TAKE TWO CAPSULES BY MOUTH TWICE A DAY TAKE TWO CAPSULES BY MOUTH TWICE A DAY SOLD: 12/05/2020 [facility] 100 mg 09/27/2020 12:00:00 AM EDT tablet 90 TAKE ONE TABLET BY MOUTH EVERY DAY TAKE ONE TABLET BY MOUTH EVERY DAY SOLD: 09/30/2020 [facility] 100 mg 09/27/2020 12:00:00 AM EDT tablet 90 TAKE ONE TABLET BY MOUTH EVERY DAY TAKE ONE TABLET BY MOUTH EVERY DAY SOLD: 01/02/2021 [facility] 20 mg 07/01/2020 12:00:00 AM EST tablet 90 TAKE ONE TABLET BY MOUTH AT BEDTIME TAKE ONE TABLET BY MOUTH AT BEDTIME SOLD: 07/01/2020 [facility] 20 mg 07/01/2020 12:00:00 AM EST tablet 90 TAKE ONE TABLET BY MOUTH AT BEDTIME TAKE ONE TABLET BY MOUTH AT BEDTIME SOLD: 09/30/2020 [facility] 0.1 % 06/29/2020 12:00:00 AM EST drops 5 INSTILL 1 DROP IN EACH EYE TWO TIMES A DAY INSTILL 1 DROP IN EACH EYE TWO TIMES A DAY SOLD: 10/11/2020 [facility] 0.1 % 06/29/2020 12:00:00 AM EST drops 5 INSTILL 1 DROP IN EACH EYE TWO TIMES A DAY INSTILL 1 DROP IN EACH EYE TWO TIMES A DAY SOLD: 07/29/2020 [facility] 0.1 % 06/29/2020 12:00:00 AM EST drops 5 INSTILL 1 DROP IN EACH EYE TWO TIMES A DAY INSTILL 1 DROP IN EACH EYE TWO TIMES A DAY SOLD: 07/01/2020 [facility] Famotidine 20 MG Oral Tablet FAMOTIDINE 06/01/2020 12:00:00 AM EST tab let 60 TAKE ONE TABLET BY MOUTH TWICE A DAY TAKE ONE TABLET BY MOUTH TWICE A DAY SOLD: 06/01/2020 [facility] Famotidine 20 MG Oral Tablet FAMOTIDINE 06/01/2020 12:00:00 AM EST tab let 60 TAKE ONE TABLET BY MOUTH TWICE A DAY TAKE ONE TABLET BY MOUTH TWICE A DAY SOLD: 12/02/2020 [facility] Famotidine 20 MG Oral Tablet FAMOTIDINE 06/01/2020 12:00:00 AM EST tab let 60 TAKE ONE TABLET BY MOUTH TWICE A DAY TAKE ONE TABLET BY MOUTH TWICE A DAY SOLD: 09/30/2020 [facility] Famotidine 20 MG Oral Tablet FAMOTIDINE 06/01/2020 12:00:00 AM EST tab let 60 TAKE ONE TABLET BY MOUTH TWICE A DAY TAKE ONE TABLET BY MOUTH TWICE A DAY SOLD: 07/01/2020 [facility] Famotidine 20 MG Oral Tablet FAMOTIDINE 06/01/2020 12:00:00 AM EST tab let 60 TAKE ONE TABLET BY MOUTH TWICE A DAY TAKE ONE TABLET BY MOUTH TWICE A DAY SOLD: 10/29/2020 [facility] 20 mg 06/01/2020 12:00:00 AM EST tablet 60 TAKE ONE TABLET BY MOUTH TWICE A DAY TAKE ONE TABLET BY MOUTH TWICE A DAY SOLD: 07/29/2020 [facility] 0.01 % 05/22/2020 12:00:00 AM EST drops 2 INSTILL 1 DROP IN EACH EYE ONCE EVERY NIGHT INSTILL 1 DROP IN EACH EYE ONCE EVERY NIGHT SOLD: 05/23/2020 [facility] 0.01 % 05/22/2020 12:00:00 AM EST drops 2 INSTILL 1 DROP IN EACH EYE ONCE EVERY NIGHT INSTILL 1 DROP IN EACH EYE ONCE EVERY NIGHT SOLD: 07/29/2020 [facility] 0.01 % 05/22/2020 12:00:00 AM EST drops 2 INSTILL 1 DROP IN EACH EYE ONCE EVERY NIGHT INSTILL 1 DROP IN EACH EYE ONCE EVERY NIGHT SOLD: 07/01/2020 [facility] 0.01 % 05/22/2020 12:00:00 AM EST drops 2 INSTILL 1 DROP IN EACH EYE ONCE EVERY NIGHT INSTILL 1 DROP IN EACH EYE ONCE EVERY NIGHT SOLD: 10/11/2020 [facility] 24 HR Metformin hydrochloride 500 MG Extended Release Oral Tablet Metformin HCL ER 05/13/2020 12:00:00 AM EST ORAL active MEDENT ([facility]) 100 mg 05/13/2020 12:00:00 AM EST tablet 180 TAKE ONE TABLET BY MOUTH TWICE A DAY TAKE ONE TABLET BY MOUTH TWICE A DAY SOLD: 02/06/2021 [facility] 500 mg 05/13/2020 12:00:00 AM EST tablet extended release 24 hr 90 TAKE ONE TABLET BY MOUTH EVERY DAY WITH BREAKFAST TAKE ONE TABLET BY MOUTH EVERY DAY WITH BREAKFAST SOLD: 05/17/2020 [facility] 100 mg 05/13/2020 12:00:00 AM EST tablet 180 TAKE ONE TABLET BY MOUTH TWICE A DAY TAKE ONE TABLET BY MOUTH TWICE A DAY SOLD: 08/05/2020 [facility] 100 mg 05/13/2020 12:00:00 AM EST tablet 180 TAKE ONE TABLET BY MOUTH TWICE A DAY TAKE ONE TABLET BY MOUTH TWICE A DAY SOLD: 05/17/2020 [facility] 100 mg 05/13/2020 12:00:00 AM EST tablet 180 TAKE ONE TABLET BY MOUTH TWICE A DAY TAKE ONE TABLET BY MOUTH TWICE A DAY SOLD: 10/31/2020 [facility] 0.005 % 04/06/2020 12:00:00 AM EST drops 2 INSTILL 1 DROP IN EACH EYE EVERY EVENING INSTILL 1 DROP IN EACH EYE EVERY EVENING SOLD: 05/17/2020 [facility] 0.005 % 04/06/2020 12:00:00 AM EST drops 2 INSTILL 1 DROP IN EACH EYE EVERY EVENING INSTILL 1 DROP IN EACH EYE EVERY EVENING SOLD: 04/18/2020 [facility] 0.005 % 04/06/2020 12:00:00 AM EST drops 2 INSTILL 1 DROP IN EACH EYE EVERY EVENING INSTILL 1 DROP IN EACH EYE EVERY EVENING SOLD: 06/08/2020 [facility] 0.01 % 01/05/2020 12:00:00 AM EDT drops 2 INSTILL 1 DROP IN EACH EYE ONCE EVERY NIGHT INSTILL 1 DROP IN EACH EYE ONCE EVERY NIGHT SOLD: 04/04/2020 [facility] 0.01 % 01/05/2020 12:00:00 AM EDT drops 2 INSTILL 1 DROP IN EACH EYE ONCE EVERY NIGHT INSTILL 1 DROP IN EACH EYE ONCE EVERY NIGHT SOLD: 02/01/2020 [facility] 0.1 % 01/05/2020 12:00:00 AM EDT drops 5 INSTILL ONE DROP TWICE A DAY IN EACH EYE INSTILL ONE DROP TWICE A DAY IN EACH EYE SOLD: 02/08/2020 [facility] 0.1 % 01/05/2020 12:00:00 AM EDT drops 5 INSTILL ONE DROP TWICE A DAY IN EACH EYE INSTILL ONE DROP TWICE A DAY IN EACH EYE SOLD: 03/28/2020 [facility] 0.01 % 01/05/2020 12:00:00 AM EDT drops 2 INSTILL 1 DROP IN EACH EYE ONCE EVERY NIGHT INSTILL 1 DROP IN EACH EYE ONCE EVERY NIGHT SOLD: 02/22/2020 [facility] 0.01 % 01/05/2020 12:00:00 AM EDT drops 2 INSTILL 1 DROP IN EACH EYE ONCE EVERY NIGHT INSTILL 1 DROP IN EACH EYE ONCE EVERY NIGHT SOLD: 05/04/2020 [facility] 0.01 % 01/05/2020 12:00:00 AM EDT drops 2 INSTILL 1 DROP IN EACH EYE ONCE EVERY NIGHT INSTILL 1 DROP IN EACH EYE ONCE EVERY NIGHT SOLD: 03/16/2020 [facility] 0.1 % 01/05/2020 12:00:00 AM EDT drops 5 INSTILL ONE DROP TWICE A DAY IN EACH EYE INSTILL ONE DROP TWICE A DAY IN EACH EYE SOLD: 03/03/2020 [facility] 0.1 % 01/05/2020 12:00:00 AM EDT drops 5 INSTILL ONE DROP TWICE A DAY IN EACH EYE INSTILL ONE DROP TWICE A DAY IN EACH EYE SOLD: 04/18/2020 [facility] montelukast 10 MG Oral Tablet MONTELUKAST SODIUM 01/03/2020 12:0 0:00 AM EDT tablet 90 TAKE ONE TABLET BY MOUTH EVERY D AY TAKE ONE TABLET BY MOUTH EVERY DAY SOLD: 07/11/2020 [facility] montelukast 10 MG Oral Tablet MONTELUKAST SODIUM 01/03/2020 12:0 0:00 AM EDT tablet 90 TAKE ONE TABLET BY MOUTH EVERY D AY TAKE ONE TABLET BY MOUTH EVERY DAY SOLD: 04/27/2020 [facility] montelukast 10 MG Oral Tablet MONTELUKAST SODIUM 01/03/2020 12:0 0:00 AM EDT tablet 90 TAKE ONE TABLET BY MOUTH EVERY D AY TAKE ONE TABLET BY MOUTH EVERY DAY SOLD: 09/30/2020 [facility] 20 mg 11/12/2019 12:00:00 AM EDT tablet 60 TAKE ONE TABLET BY MOUTH TWICE A DAY TAKE ONE TABLET BY MOUTH TWICE A DAY SOLD: 02/01/2020 [facility] 20 mg 11/12/2019 12:00:00 AM EDT tablet 60 TAKE ONE TABLET BY MOUTH TWICE A DAY TAKE ONE TABLET BY MOUTH TWICE A DAY SOLD: 05/04/2020 [facility] 20 mg 11/12/2019 12:00:00 AM EDT tablet 60 TAKE ONE TABLET BY MOUTH TWICE A DAY TAKE ONE TABLET BY MOUTH TWICE A DAY SOLD: 03/03/2020 [facility] 20 mg 11/12/2019 12:00:00 AM EDT tablet 60 TAKE ONE TABLET BY MOUTH TWICE A DAY TAKE ONE TABLET BY MOUTH TWICE A DAY SOLD: 04/04/2020 [facility] 100 mg 11/10/2019 12:00:00 AM EDT tablet 180 TAKE ONE TABLET BY MOUTH TWICE A DAY TAKE ONE TABLET BY MOUTH TWICE A DAY SOLD: 02/08/2020 [facility] 100 mg 10/04/2019 12:00:00 AM EDT tablet 90 TAKE ONE TABLET BY MOUTH EVERY DAY TAKE ONE TABLET BY MOUTH EVERY DAY SOLD: 07/01/2020 [facility] 100 mg 10/04/2019 12:00:00 AM EDT tablet 90 TAKE ONE TABLET BY MOUTH EVERY DAY TAKE ONE TABLET BY MOUTH EVERY DAY SOLD: 04/04/2020 [facility] 0.4 mg 08/11/2019 12:00:00 AM EDT capsule 90 TAKE ONE CAPSULE BY MOUTH EVERY DAY TAKE ONE CAPSULE BY MOUTH EVERY DAY SOLD: 05/17/2020 [facility] 0.4 mg 08/11/2019 12:00:00 AM EDT capsule 90 TAKE ONE CAPSULE BY MOUTH EVERY DAY TAKE ONE CAPSULE BY MOUTH EVERY DAY SOLD: 02/08/2020 [facility] 20 mg 07/05/2019 12:00:00 AM EST tablet 90 TAKE ONE TABLET BY MOUTH AT BEDTIME TAKE ONE TABLET BY MOUTH AT BEDTIME SOLD: 04/04/2020 [facility] Insurance Providers Payer name Policy type / Coverage type Policy ID Covered libertarian ID Covered libertarian's relationship to cox Policy [employer] Plan Information Medicaid [place] Medig[place] Part B [id number] Self [place] Med[place]ap Part B [id number] Self [employer] Options Medigap Part B [id number] Self [employer] Medigap Part B [id number] Self [place](NF) Workers Compensation [id number] Self [employer] [facility] Medicare Commercial [id number] Self [id number] MEDICAID [id number] S [id number] [employer] [place] [employer] [id number] 06.22.840.1. [id number] Self [id number] [employer] [place] [employer] [id number] 840.1. 5[id number] Self [id number] [employer] Medicare Commercial [id number] [id number] Self [id number] [employer] Medicare Commercial [id number] 2.16.840.1.358071.3.227.99.177.36459.0 Self [id number] [employer] [place] Commercial [id number] 2.16.840.1. 30[id number] Self [id number] [employer] [id number] S [id number] [employer] [place] Commercial [id number] 2.16.840.1. 86[id number] Self [id number] [employer] [id number] S [id number] [employer] [id number] SP [id number] ANSI-Commercial [id number] Medicaid Commercial [id number] Self [id number] [facility] Commercial [id number] Self [id number] [facility] [id number] SP [id number] ANSI-Medicaid [id number] ANSI-Commercial [id number] ANSI-Medicare Part B [id number] ANSI-Health Maintenance Organization ( O) [id number] ANSI-Commercial [id number] ANSI-Medicaid [id number] ANSI-Health Maintenance Organization ( O) [id number] ANSI-Medicare Part B [id number] Medicaid Commercial [id number] Self [id number] [employer] [id number] 646.0 Self [id number] [employer] [place] [id number] 18 [id number] ANSI-Medicaid [id number] ANSI-Health Maintenance Organization ( O) [id number] ANSI-Medicare Part B [id number] ANSI-Commercial [id number] [facility] [id number] ANSI-Medicare Part B [id number] ANSI-Commercial [id number] ANSI-Medicaid [id number] [facility] [id number] ANSI-Medicaid [id number] ANSI-Medicare Part B [id number] ANSI-Commercial [id number] [facility]) [id number] ANSI-Medicare Part B [id number] ANSI-Medicaid [id number] ANSI-Commercial [id number] ANSI-Commercial [id number] ANSI-Medicare Part B [id number] ANSI-Medicaid [id number] Medicaid Commercial [id number] Self [id number] [employer] [id number] 2.16.840.1.942514.3.227.99.510.16 646.0 Self [id number] MEDICAID [id number] SP [id number] ANSI-Medicaid [id number] ANSI-Commercial [id number] ANSI-Medicare Part B [id number] [employer] [id number] SP [id number] ANSI-Medicaid [id number] ANSI-Commercial [id number] ANSI-Medicare Part B [id number] Medicaid Commercial [id number] 2..840.1.63[id number] Self [id number] [employer] Commercial [id number] 2..840.1.009909.3.227.99.510.16 646.0 Self [id number] ANSI-Medicaid [id number] ANSI-Medicare Part B [id number] ANSI-Commercial [id number] Medicaid [facility] Part B [id number]. 50104.0 Self [id number] [employer] Commercial [id number] 0041.0 Self [id number] ANSI-Commercial [id number] ANSI-Medicare Part B [id number] ANSI-Medicaid [id number] Medicaid Commercial [id number] 2.16.840.1.23[id number] Self [id number] [employer] Commercial [id number] 2..840.1.377500.3.227.99.510.16 646.0 Self [id number] MEDICAID -PHYSICIAN [id number] 1 [id number] [employer] -PHYSICIAN [id number] 1 8 [id number] ANSI-Medicaid [id number] ANSI-Commercial [id number] ANSI-Medicare Part B [id number] ANSI-Medicare Part B [id number] ANSI-Medicaid [id number] ANSI-Commercial [id number] Medicaid Commercial [id number] Self [id number] [employer] Commercial [id number] 646.0 Self [id number] [employer] [place] [id number] S [id number] MEDICAID [id number] S [id number] [employer] [id number] S [id number] [employer] [id number] S [id number] MEDICARE [id number] SP [id number] A MEDICARE COMPLETE [id number] SP [id number] [employer] [place] [id number] S [id number] AETNA MEDICARE [id number] S [id number] AETNA [id number] S [id number] MEDICARE [id number] S [id number] A [employer] MC [id number] S [id number] Medicaid [facility] Part B [id number]. 62129.0 Self [id number] [employer] Commercial [id number]7.3 0041.0 Self [id number] [employer] -O/P [id number] 18 [id number] MEDICAID-O/P [id number] 18 [id number] B MEDICAID PROF FEES [id number] S A [id number] [facility]) Commercial [id number] Self MEDICAID [id number] SP [id number] MEDICARE COMPLETE-[facility] O [id number] S [id number] MEDICAID [id number] S [id number] [employer] [id number] SP [id number] [employer] O [id number] S [id number] AC INSURANCE () O [id number] S [id number] [facility] [id number] SP [id number] [employer] MEDICARE- [id number] 18 [id number] [employer] MEDICARE-CLINIC [id number] 18 [id number] [facility] MEDICAID [id number] SP [id number] [employer] GOLD [id number] SP [id number] [id number] 18 [id number] [employer] MEDICARE HMO HM [id number] 18 [id number] [employer] [id number] SP [id number] [place]ED[place] [id number] SP [id number] [employer] GOLD [id number] SP [id number] WELLCARE [id number] SP [id number] MEDICAID -RECURRING [id number] 1 8 [id number] WELLCARE -RECURRING [id number] 18 [id number] WELLCARE -CLINIC [id number] 18 [id number] MEDICAID [id number] 18 [id number] MEDICAID [id number] SP [id number] ANSI-Health Maintenance Organization (HM O) [id number] ANSI-Medicare Part B [id number] ANSI-Medicaid [id number] Problems, Conditions, and Diagnoses Code Display Name Description Problem Type Effective Dates Data Source(s) U31124 Other continuous churn buttermaker (current) drug therapy O ther longterm (current) drug therapy Diagnosis 02/12/2020 08:43:00 AM [facility] E8342 Hypomagnesemia Hypomagnesemia Diagnosis 02/12/2020 08:43: 00 AM [facility] N401 Benign prostatic hyperplasia with lower urinary tract symptoms Benign prostatic hyperplasia with lower urinary tract symptoms Diagnosis 02/12/2020 08:43:00 AM [facility] K219 Gastro-esophageal reflux disease without esophagitis Gastro-esophageal reflux disease without esophagitis Diagnosis 02/12/2020 08:43:00 AM ED [facility] V16944 Other asthma Other asthma Diagnosis 02/12/2020 08:43:00 A M [facility] R7303 Prediabetes Prediabetes Diagnosis 02/12/2020 08:43:00 AM EDT [facility] E782 Mixed hyperlipidemia Mixed hyperlipidemia Diagnosis 02/12/2020 08:43:00 AM EDT [facility] I10 Essential (primary) hypertension Essential (primary) h ypertension Diagnosis 02/12/2020 08:43:00 AM EDT [facility] I10 [id number] Hypertension, unspecified type Problem 12/14 12:00:00 AM EDT eCW1 ([facility]) E11.9 [id number] Type 2 diabetes danelle itus without complication, unspecified whether continuous churn buttermaker insulin use Problem 12/14/2020 12:00:00 AM EDT eCW 1 ([facility]) M25.561 Pain in right knee Pain in right knee Problem 12:00:00 AM EDT [facility] ([facility]) M25.562 Pain in left knee Pain in left knee Problem 10/18/2020 12:00:00 AM EDT [facility] ([facility]) Surgeries/Procedures Procedure Description Date Indications Data Source(s) OFFICE OUTPATIENT VISIT 15 MINUTES 03/03/2021 12:00:00 AM EDT [facility] ([facility]) Brief Emotional/Behav Assessment W/ Scoring Doc Per Standard Inst 02/07/2021 12:00:00 AM EDT [facility] ([facility]) Admin Patient Focused Health Risk Assessment Instrument 02/07/2021 12:00:00 AM EDT [facility] ([facility]) ARTHROCENTESIS ASPIR&/INJECTION MAJOR JT/BURSA 021 12:00:00 AM EDT [facility] ([facility]) RADIOLOGIC EXAM KNEE COMPLETE 4/MORE VIEWS 12/31/2020 12:00:00 AM EDT [facility] ([facility]) OFFICE OUTPATIENT VISIT 25 MINUTES 12/31/2020 12:00:00 AM EDT [facility] ([facility]) OFFICE OUTPATIENT VISIT 25 MINUTES 10/18/2020 12:00:00 AM EDT [facility] ([facility]) OFFICE OUTPATIENT VISIT 25 MINUTES 08/17/2020 12:00:00 AM EDT [facility] ([facility]) Brief Emotional/Behav Assessment W/ Scoring Doc Per Standard Inst 02/12/2020 12:00:00 AM EDT [facility] ([facility]) Admin Patient Focused Health Risk Assessment Instrument 02/12/2020 12:00:00 AM EDT [facility] ([facility]) Results ID Date Data Source [id number] 12/22/2020 09:32:00 AM EDT [facility] ([facility]) Name Value Range Interpretation Code Description Data Yessica rce(s) Supporting Document(s) Estimated Average Glucose 126 mg/dL 60-110 Above high normal [facility] ([facility]) Hemoglobin A1c 6.0 % Normal (applies to non-numeric r esults) [facility] ([facility]) <content>REFERENCE RANGES:</content><br/ ><content></content>
<content><=5.6% NORMAL</content>
<content>5.7-6.4% SUGGESTS IMPAIRED GLUCOSE METABOLISM/PREDIABETIC</content>
<content>>= 6.5% ABNORMAL</content>
<content></content> ID Date Data Source [id number] 12/22/2020 09:32:00 AM EDT [facility] ([facility]) Name Value Range Interpretation Code Description Data Yessica rce(s) Supporting Document(s) Magnesium [Mass/volume] in Serum or Plasma 2.3 mg/dL 1.8-2 .4 Normal (applies to non-numeric results) [facility] ([facility]) Thyrotropin [Units/volume] in Serum or Plasma 2.580 uIU/ML 0. 358-3.740 Normal (applies to non-numeric results) [facility] ([facility]) ID Date Data Source [id number] 12/22/2020 09:32:00 AM EDT [facility] ([facility]) Name Value Range Interpretation Code Description Data Yessica rce(s) Supporting Document(s) HDL Cholesterol 50 mg/dL Normal (applies to non-numeric results) [facility] ([facility]) Triglycerides Level 122 mg/dL Normal (applies to non-nume matthew results) [facility] ([facility]) Cholesterol Level 160 mg/dL Normal (applies to non-numeri c results) [facility] ([facility]) Cholesterol Risk Ratio 3.200 Normal (applies to non-n umeric results) [facility] ([facility]) Non-HDL-C 110 mg/dL Normal (applies to non-numeric resul ts) [facility] ([facility]) LDL Cholesterol 86 mg/dL Normal (applies to non-numeric results) [facility] ([facility]) ID Date Data Source [id number] 12/22/2020 09:32:00 AM EDT [facility] ([facility]) Name Value Range Interpretation Code Description Data Yessica rce(s) Supporting Document(s) Glucose, Fasting 113 mg/dL 70-100 Above high normal [facility] ([facility]) Blood Urea Nitrogen 20 mg/dL 7-18 Above high normal [facility] ([facility]) Creatinine For GFR 1.29 mg/dL 0.70-1.30 Normal (applies to non -numeric results) [facility] ([facility]) Glomerular Filtration Rate 57.6 Normal (applies to n on-numeric results) [facility] ([facility]) <content>Units are mL/min/1.73 m2</content>
<content></content>
<content>Chronic Kidney Disease Staging per NKF:</content>
<content></content>
<content>Stage I & II GFR >=60 Normal to Mildly Decreased</content>
<content>Stage III GFR 30- 59 Moderately Decreased</content>
<content>Stage IV GFR 15-29 Severely Decreased</content>
<content>Stage V GFR <15 Very Little GFR Left</content>
<content>ESRD GFR <15 on TERMINAL PRESS OPERATOR</content>
<content></content> Sodium Level 143 meq/L 136-145 Normal (applies to non-numeric res ults) [facility] ([facility]) Potassium Serum 4.2 meq/L 3.5-5.1 Normal (applies to non-numeric results) [facility] ([facility]) Anion Gap 4 meq/L 8-16 Below low normal [facility] Carbon Dioxide Level 28 meq/L 21-32 Normal (applies to non-num linda results) [facility] Chloride Level 111 meq/L 98-107 Above high normal [facility] ([facility]) Calcium Level 9.3 mg/dL 8.8-10.2 Normal (applies to non-numeric re sults) [facility] ([facility]) Ast/Sgot 21 U/L 7-37 Normal (applies to non-numeric resul ts) [facility] ([facility]) Alt/SGPT 26 U/L 12-78 Normal (applies to non-numeric resul ts) [facility] ([facility]) Alkaline Phosphatase 81 U/L 45-117 Normal (applies to non-num linda results) [facility] Total Protein 7.3 GM/DL 6.4-8.2 Normal (applies to non-numeric re sults) [facility] Bilirubin,Total 0.7 mg/dL 0.2-1.0 Normal (applies to non-numeric results) [facility] Albumin/Globulin Ratio 0.9 Normal (applies to non-n umeric results) [facility] ([facility]) Albumin 3.5 GM/DL 3.2-5.2 Normal (applies to non-numeric resul ts) [facility] ([facility]) ID Date Data Source [id number] 12/22/2020 09:32:00 AM EDT [facility] Name Value Range Interpretation Code Description Data Yessica rce(s) Supporting Document(s) White Blood Count 5.9 10 4.0-10.0 Normal (applies to non-numeri c results) [facility] ([facility]) Red Blood Count 4.26 10 4.30-6.10 Below low normal [facility] ([facility]) Hemoglobin 13.2 g/dL 13.5-17.5 Below low normal [facility] Hematocrit 39.6 % 42.0-52.0 Below low normal [facility] ( [facility]) Mean Corpuscular Hemoglobin 31.0 pg 27.0-33.0 Norm al (applies to non-numeric results) [facility] ([facility]) Mean Corpuscular Volume 93.0 fl 80.0-96.0 Normal ( applies to non-numeric results) [facility] ([facility]) Mean Corpuscular HGB Conc 33.3 g/dL 32.0-36.5 Normal (applies to non-numeric results) [facility] ([facility]) Red Cell Distribution Width 13.0 % 11.5-14.5 Norm al (applies to non-numeric results) [facility] ([facility]) Platelet Count, Automated 149 10 150-450 Below low normal [facility] ([facility]) Neutrophils % 60.0 % 36.0-66.0 Normal (applies to non-numeric re sults) [facility] ([facility]) Lymph % 30.0 % 24.0-44.0 Normal (applies to non-numeric resul ts) [facility] ([facility]) Baso % 0.0 % 0.0-1.0 Normal (applies to non-numeric resul ts) [facility] ([facility]) [place] % 9.3 % 2.0-8.0 Above high normal [facility] ([facility]) Eos % 0.2 % 0.0-3.0 Normal (applies to non-numeric resul ts) [facility] ([facility]) Nucleated Red Blood Cell % 0.0 % 0-0 Normal (applies to n on-numeric results) [facility] ([facility]) Neutrophils # 3.6 10 1.5-8.5 Normal (applies to non-numeric re sults) [facility] ([facility]) Immature Granulocyte % 0.5 % 0-3.0 Normal (applies to non-n umeric results) [facility]) [place] # 0.6 10 0.0-0.8 Normal (applies to non-numeric resul ts) [facility] ([facility]) Lymph # 1.8 10 1.5-5.0 Normal (applies to non-numeric resul ts) [facility] ([facility]) Eos # 0.0 10 0.0-0.5 Normal (applies to non-numeric resul ts) [facility] ([facility]) Baso # 0.0 10 0.0-0.2 Normal (applies to non-numeric resul ts) [facility] ([facility]) ID Date Data Source [id number] 12/22/2020 09:28:00 AM EDT [facility] ([facility]) Name Value Range Interpretation Code Description Data Yessica rce(s) Supporting Document(s) Hemoglobin A1c 6.1 % Normal (applies to non-numeric r esults) [facility] ([facility]) <content>REFERENCE RANGES:</content><br/ ><content></content>
<content><=5.6% NORMAL</content>
<content>5.7-6.4% SUGGESTS IMPAIRED GLUCOSE METABOLISM/PREDIABETIC</content>
<content>>= 6.5% ABNORMAL</content>
<content></content> Estimated Average Glucose 128 mg/dL 60-110 Above high normal [facility] ([facility]) ID Date Data Source [id number] 12/22/2020 09:28:00 AM EDT [facility] ([facility]) Name Value Range Interpretation Code Description Data Yessica rce(s) Supporting Document(s) Triglycerides Level 125 mg/dL Normal (applies to non-nume matthew results) [facility] ([facility]) HDL Cholesterol 50 mg/dL Normal (applies to non-numeric results) [facility] ([facility]) Cholesterol Level 165 mg/dL Normal (applies to non-numeri c results) [facility] ([facility]) LDL Cholesterol 90 mg/dL Normal (applies to non-numeric results) [facility] ([facility]) Cholesterol Risk Ratio 3.300 Normal (applies to non-n umeric results) [facility] ([facility]) Non-HDL-C 115 mg/dL Normal (applies to non-numeric resul ts) [facility] ([facility]) ID Date Data Source [id number] 12/22/2020 09:28:00 AM EDT [facility] ([facility]) Name Value Range Interpretation Code Description Data Yessica rce(s) Supporting Document(s) Glucose, Fasting 110 mg/dL 70-100 Above high normal [facility] ([facility]) Blood Urea Nitrogen 19 mg/dL 7-18 Above high normal [facility] ([facility]) Creatinine For GFR 1.18 mg/dL 0.70-1.30 Normal (applies to non -numeric results) [facility] ([facility]) Sodium Level 145 meq/L 136-145 Normal (applies to non-numeric res ults) [facility] ([facility]) Glomerular Filtration Rate Laboratory test result Normal (applies to non- numeric results) [facility] ([facility]) <content>Units are mL/min/1.73 m2</content>
<content></content>
<content>Chronic Kidney Disease Staging per NKF:</content>
<content></content>
<content>Stage I & II GFR >=60 Normal to Mildly Decreased</content>
<content>Stage III GFR 30- 59 Moderately Decreased</content>
<content>Stage IV GFR 15-29 Severely Decreased</content>
<content>Stage V GFR <15 Very Little GFR Left</content>
<content>ESRD GFR <15 on [employer]</content>
<content></content> Chloride Level 113 meq/L 98-107 Above high normal [facility] ([facility]) Potassium Serum 4.1 meq/L 3.5-5.1 Normal (applies to non-numeric results) [facility] ([facility]) Carbon Dioxide Level 27 meq/L 21-32 Normal (applies to non-num linda results) [facility] ([facility]) Calcium Level 9.7 mg/dL 8.8-10.2 Normal (applies to non-numeric re sults) [facility] ([facility]) Anion Gap 5 meq/L 8-16 Below low normal [facility] ( [facility]) Ast/Sgot 17 U/L 7-37 Normal (applies to non-numeric resul ts) [facility] ([facility]) Alt/SGPT 27 U/L 12-78 Normal (applies to non-numeric resul ts) [facility] ([facility]) Bilirubin,Total 0.7 mg/dL 0.2-1.0 Normal (applies to non-numeric results) [facility] ([facility]) Alkaline Phosphatase 87 U/L 45-117 Normal (applies to non-num linda results) [facility] ([facility]) Total Protein 7.3 GM/DL 6.4-8.2 Normal (applies to non-numeric re sults) [facility] ([facility]) Albumin/Globulin Ratio 1.0 Normal (applies to non-n umeric results) [facility]) Albumin 3.7 GM/DL 3.2-5.2 Normal (applies to non-numeric resul ts) [facility] ([facility]) ID Date Data Source [id number] 07/28/2020 09:12:00 AM EDT [facility] ([facility]) Name Value Range Interpretation Code Description Data Yessica rce(s) Supporting Document(s) Thyrotropin [Units/volume] in Serum or Plasma 1.640 uIU/ML 0. 358-3.740 Normal (applies to non-numeric results) [facility] ([facility]) Magnesium [Mass/volume] in Serum or Plasma 2.1 mg/dL 1.8-2 .4 Normal (applies to non-numeric results) [facility] ([facility]) ID Date Data Source [id number] 07/28/2020 09:12:00 AM EDT [facility] ([facility]) Name Value Range Interpretation Code Description Data Yessica rce(s) Supporting Document(s) Cholesterol Level 188 mg/dL Normal (applies to non-numeri c results) [facility] ([facility]) Triglycerides Level 188 mg/dL Above high normal [facility] ([facility]) LDL Cholesterol 107 mg/dL Above high normal [facility] ([facility]) HDL Cholesterol 43 mg/dL Normal (applies to non-numeric results) [facility] ([facility]) Cholesterol Risk Ratio 4.372 Normal (applies to non-n umeric results) [facility] ([facility]) Non-HDL-C 145 mg/dL Normal (applies to non-numeric resul ts) [facility] ([facility]) ID Date Data Source [id number] 07/28/2020 09:12:00 AM EDT [facility] ([facility]) Name Value Range Interpretation Code Description Data Yessica rce(s) Supporting Document(s) Glucose, Fasting 109 mg/dL 70-100 Above high normal [facility] [facility] Creatinine For GFR 1.41 mg/dL 0.70-1.30 Above high normal [facility] ([facility]) Blood Urea Nitrogen 22 mg/dL 7-18 Above high normal [facility] ([facility]) Sodium Level 145 meq/L 136-145 Normal (applies to non-numeric res ults) [facility] ([facility]) Glomerular Filtration Rate 52.0 Normal (applies to n on-numeric results) [facility] ([facility]) <content>Units are mL/min/1.73 m2</content>
<content></content>
<content>Chronic Kidney Disease Staging per NKF:</content>
<content></content>
<content>Stage I & II GFR >=60 Normal to Mildly Decreased</content>
<content>Stage III GFR 30- 59 Moderately Decreased</content>
<content>Stage IV GFR 15-29 Severely Decreased</content>
<content>Stage V GFR <15 Very Little GFR Left</content>
<content>ESRD GFR <15 on TERMINAL PRESS OPERATOR</content>
<content></content> Chloride Level 111 meq/L 98-107 Above high normal [facility] ([facility]) Potassium Serum 4.4 meq/L 3.5-5.1 Normal (applies to non-numeric results) [facility] ([facility]) Carbon Dioxide Level 28 meq/L 21-32 Normal (applies to non-num linda results) [facility] ([facility]) Anion Gap 6 meq/L 8-16 Below low normal [facility] ( [facility]) Calcium Level 9.5 mg/dL 8.8-10.2 Normal (applies to non-numeric re sults) [facility] ([facility]) Ast/Sgot 14 U/L 7-37 Normal (applies to non-numeric resul ts) [facility] ([facility]) Alt/SGPT 19 U/L 12-78 Normal (applies to non-numeric resul ts) [facility] ([facility]) Alkaline Phosphatase 96 U/L 45-117 Normal (applies to non-num linda results) [facility] ([facility]) Bilirubin,Total 0.6 mg/dL 0.2-1.0 Normal (applies to non-numeric results) [facility] ([facility]) Albumin 3.7 GM/DL 3.2-5.2 Normal (applies to non-numeric resul ts) [facility] ([facility]) Total Protein 7.4 GM/DL 6.4-8.2 Normal (applies to non-numeric re sults) [facility] ([facility]) Albumin/Globulin Ratio 1.0 Normal (applies to non-n umeric results) [facility] ([facility]) ID Date Data Source [id number] 07/28/2020 09:12:00 AM EDT [facility] ([facility]) Name Value Range Interpretation Code Description Data Yessica rce(s) Supporting Document(s) Estimated Average Glucose 123 mg/dL 60-110 Above high normal [facility] ([facility]) Hemoglobin A1c 5.9 % Normal (applies to non-numeric r esults) [facility] ([facility]) <content>REFERENCE RANGES:</content><br/ ><content></content>
<content><=5.6% NORMAL</content>
<content>5.7-6.4% SUGGESTS IMPAIRED GLUCOSE METABOLISM/PREDIABETIC</content>
<content>>= 6.5% ABNORMAL</content>
<content></content> ID Date Data Source [id number] 07/28/2020 09:12:00 AM EDT [facility] ([facility]) Name Value Range Interpretation Code Description Data Yessica rce(s) Supporting Document(s) Red Blood Count 4.41 10 4.30-6.10 Normal (applies to non-numeric results) [facility] ([facility]) White Blood Count 6.1 10 4.0-10.0 Normal (applies to non-numeri c results) [facility] ([facility]) Hematocrit 40.4 % 42.0-52.0 Below low normal [facility] ( [facility]) Hemoglobin 13.4 g/dL 13.5-17.5 Below low normal [facility] ( [facility]) Mean Corpuscular Volume 91.6 fl 80.0-96.0 Normal ( applies to non-numeric results) [facility] ([facility]) Red Cell Distribution Width 13.2 % 11.5-14.5 Norm al (applies to non-numeric results) [facility] ([facility]) Mean Corpuscular Hemoglobin 30.4 pg 27.0-33.0 Norm al (applies to non-numeric results) [facility] ([facility]) Mean Corpuscular HGB Conc 33.2 g/dL 32.0-36.5 Normal (applies to non-numeric results) [facility] ([facility]) Neutrophils % 54.7 % 36.0-66.0 Normal (applies to non-numeric re sults) [facility] ([facility]) Platelet Count, Automated 177 10 150-450 Normal (applies to non-numeric results) [facility] ([facility]) Lymph % 31.9 % 24.0-44.0 Normal (applies to non-numeric resul ts) [facility] ([facility]) [place] % 12.9 % 2.0-8.0 Above high normal [facility] ([facility]) Eos % 0.0 % 0.0-3.0 Normal (applies to non-numeric resul ts) [facility] ([facility]) Baso % 0.2 % 0.0-1.0 Normal (applies to non-numeric resul ts) [facility] ([facility]) Immature Granulocyte % 0.3 % 0-3.0 Normal (applies to non-n umeric results) [facility]) Nucleated Red Blood Cell % 0.0 % 0-0 Normal (applies to n on-numeric results) [facility] ([facility]) Neutrophils # 3.3 10 1.5-8.5 Normal (applies to non-numeric re sults) [facility] ([facility]) [place] # 0.8 10 0.0-0.8 Normal (applies to non-numeric resul ts) [facility] ([facility]) Eos # 0.0 10 0.0-0.5 Normal (applies to non-numeric resul ts) [facility] ([facility]) Lymph # 1.9 10 1.5-5.0 Normal (applies to non-numeric resul ts) [facility] ([facility]) Baso # 0.0 10 0.0-0.2 Normal (applies to non-numeric resul ts) [facility] ([facility]) ID Date Data Source [id number] 04/28/2020 09:00:00 AM EST [facility] ([facility]) Name Value Range Interpretation Code Description Data Yessica rce(s) Supporting Document(s) Magnesium [Mass/volume] in Serum or Plasma 2.3 mg/dL 1.8-2 .4 Normal (applies to non-numeric results) [facility] ([facility]) ID Date Data Source [id number] 04/28/2020 09:00:00 AM EST [facility] ([facility]) Name Value Range Interpretation Code Description Data Yessica rce(s) Supporting Document(s) Triglycerides Level 230 mg/dL Above high normal [facility] ([facility]) Cholesterol Level 189 mg/dL Normal (applies to non-numeri c results) [facility] ([facility]) HDL Cholesterol 46 mg/dL Normal (applies to non-numeric results) [facility] ([facility]) LDL Cholesterol 97 mg/dL Normal (applies to non-numeric results) [facility] ([facility]) Cholesterol Risk Ratio 4.108 Normal (applies to non-n umeric results) [facility] ([facility]) Non-HDL-C 143 mg/dL Normal (applies to non-numeric resul ts) [facility] ([facility]) ID Date Data Source [id number] 04/28/2020 09:00:00 AM EST [facility] ([facility]) Name Value Range Interpretation Code Description Data Yessica rce(s) Supporting Document(s) Glucose, Fasting 118 mg/dL 70-100 Above high normal [facility] ([facility]) Creatinine For GFR 1.42 mg/dL 0.70-1.30 Above high normal [facility] ([facility]) Glomerular Filtration Rate 51.6 Normal (applies to n on-numeric results) [facility] ([facility]) <content>Units are mL/min/1.73 m2</content>
<content></content>
<content>Chronic Kidney Disease Staging per NKF:</content>
<content></content>
<content>Stage I & II GFR >=60 Normal to Mildly Decreased</content>
<content>Stage III GFR 30- 59 Moderately Decreased</content>
<content>Stage IV GFR 15-29 Severely Decreased</content>
<content>Stage V GFR <15 Very Little GFR Left</content>
<content>ESRD GFR <15 on TERMINAL PRESS OPERATOR</content>
<content></content> Blood Urea Nitrogen 20 mg/dL 7-18 Above high normal [facility] ([facility]) Sodium Level 145 meq/L 136-145 Normal (applies to non-numeric res ults) [facility] ([facility]) Potassium Serum 4.9 meq/L 3.5-5.1 Normal (applies to non-numeric results) [facility] ([facility]) Anion Gap 3 meq/L 8-16 Below low normal [facility] ( [facility]) Carbon Dioxide Level 29 meq/L 21-32 Normal (applies to non-num linda results) [facility] ([facility]) Chloride Level 113 meq/L 98-107 Above high normal [facility] ([facility]) Ast/Sgot 13 U/L 7-37 Normal (applies to non-numeric resul ts) [facility] ([facility]) Calcium Level 9.9 mg/dL 8.8-10.2 Normal (applies to non-numeric re sults) [facility] ([facility]) Alkaline Phosphatase 95 U/L 45-117 Normal (applies to non-num linda results) [facility] ([facility]) Alt/SGPT 23 U/L 12-78 Normal (applies to non-numeric resul ts) [facility] ([facility]) Bilirubin,Total 0.4 mg/dL 0.2-1.0 Normal (applies to non-numeric results) [facility] ([facility]) Total Protein 7.4 GM/DL 6.4-8.2 Normal (applies to non-numeric re sults) [facility] ([facility]) Albumin 3.6 GM/DL 3.2-5.2 Normal (applies to non-numeric resul ts) [facility] ([facility]) Albumin/Globulin Ratio 0.9 Normal (applies to non-n umeric results) [facility] ([facility]) ID Date Data Source [id number] 04/28/2020 09:00:00 AM EST [facility] ([facility]) Name Value Range Interpretation Code Description Data Yessica rce(s) Supporting Document(s) Estimated Average Glucose 123 mg/dL 60-110 Above high normal [facility] ([facility]) Hemoglobin A1c 5.9 % Normal (applies to non-numeric r esults) [facility] ([facility]) <content>REFERENCE RANGES:</content><br/ ><content></content>
<content><=5.6% NORMAL</content>
<content>5.7-6.4% SUGGESTS IMPAIRED GLUCOSE METABOLISM/PREDIABETIC</content>
<content>>= 6.5% ABNORMAL</content>
<content></content> ID Date Data Source [id number] 04/28/2020 09:00:00 AM EST [facility] ([facility]) Name Value Range Interpretation Code Description Data Yessica rce(s) Supporting Document(s) White Blood Count 6.4 10 4.0-10.0 Normal (applies to non-numeri c results) [facility] ([facility]) Hematocrit 39.8 % 42.0-52.0 Below low normal [facility] ( [facility]) Hemoglobin 13.1 g/dL 13.5-17.5 Below low normal [facility] ( [facility]) Red Blood Count 4.35 10 4.30-6.10 Normal (applies to non-numeric results) [facility] ([facility]) Mean Corpuscular Volume 91.5 fl 80.0-96.0 Normal ( applies to non-numeric results) [facility] ([facility]) Mean Corpuscular Hemoglobin 30.1 pg 27.0-33.0 Norm al (applies to non-numeric results) [facility] ([facility]) Mean Corpuscular HGB Conc 32.9 g/dL 32.0-36.5 Normal (applies to non-numeric results) [facility] ([facility]) Platelet Count, Automated 194 10 150-450 Normal (applies to non-numeric results) [facility] ([facility]) Red Cell Distribution Width 13.1 % 11.5-14.5 Norm al (applies to non-numeric results) [facility] ([facility]) Neutrophils % 55.5 % 36.0-66.0 Normal (applies to non-numeric re sults) [facility] ([facility]) Lymph % 32.1 % 24.0-44.0 Normal (applies to non-numeric resul ts) [facility] ([facility]) [place] % 11.7 % 0.0-5.0 Above high normal [facility] ([facility]) Eos % 0.0 % 0.0-3.0 Normal (applies to non-numeric resul ts) [facility] ([facility]) Baso % 0.2 % 0.0-1.0 Normal (applies to non-numeric resul ts) [facility] ([facility]) Nucleated Red Blood Cell % 0.0 % 0-0 Normal (applies to n on-numeric results) [facility] ([facility]) Immature Granulocyte % 0.5 % 0-3.0 Normal (applies to non-n umeric results) [facility]) Neutrophils # 3.5 10 1.5-8.5 Normal (applies to non-numeric re sults) [facility] ([facility]) [place] # 0.7 10 0.0-0.8 Normal (applies to non-numeric resul ts) [facility] ([facility]) Lymph # 2.0 10 1.5-5.0 Normal (applies to non-numeric resul ts) [facility] ([facility]) Eos # 0.0 10 0.0-0.5 Normal (applies to non-numeric resul ts) [facility] ([facility]) Baso # 0.0 10 0.0-0.2 Normal (applies to non-numeric resul ts) [facility] ([facility]) Procedure Social History Code Duration Value Status Description Data Source(s ) Smoking 12/14/2020 12:00:00 AM EDT Former Smoker completed Former Smoker [facility]1 ([facility]) Smoking 12/14/2020 12:00:00 AM EDT Former Smoker completed Former Smoker [facility] ([facility]) Vital Signs ID Date Data Source UNK Name Value Range Interpretation Code Description Data Source(s) Body weight 93.498 kg 93.498 kg [facility] ([facility]) Body weight 206.12 [lb_av] 206.12 [lb_av] [facility] ([facility]) Body height 64 [in_i] 64 [in_i] [facility] ([facility]) 5'4" Body mass index (BMI) [Ratio] 35.4 kg/m2 35.4 k g/m2 [facility] ([facility]) Body surface area Derived from formula 1.98 m2 1.98 m2 [facility] ([facility]) Systolic blood pressure 122 mm[Hg] 122 mm[Hg] [facility] ([facility]) Diastolic blood pressure 84 mm[Hg] 84 mm[Hg] [facility] ([facility]) Heart rate 61 /min 61 /min [facility] ([facility]) Body temperature 96.8 [degF] 96.8 [degF] [facility] ([facility]) Respiratory rate 16 /min 16 /min [facility] ( [facility]) Oxygen saturation in Arterial blood by Pulse oximetry 95 % 95 % [facility] ([facility]) Body temperature 96.9 [degF] 96.9 [degF] [facility] ([facility]) Body height 64 [in_i] 64 [in_i] [facility] ([facility]) 5'4" Body weight 208.50 [lb_av] 208.50 [lb_av] [facility] ([facility]) Body mass index (BMI) [Ratio] 35.8 kg/m2 35.8 k g/m2 [facility] ([facility]) Body weight 205 [lb_av] 205 [lb_av] eCW1 ([facility]) Body weight 92.99 kg 92.99 kg eCW1 ([facility]) Body height 65 [in_i] 65 [in_i] [facility]CW1 ([facility]) Body mass index (BMI) [Ratio] 34.11 kg/m2 34.11 kg/m2 eCW1 ([facility]) Heart rate 70 /min 70 /min eCW1 ([facility]) Respiratory rate 18 /min 18 /min eCW1 ([facility]) Body temperature 98.8 [degF] 98.8 [degF] eCW1 ( [facility]) Systolic blood pressure 145 mm[Hg] 145 mm[Hg] e CW1 ([facility]) Diastolic blood pressure 66 mm[Hg] 66 mm[Hg] eCW1 ([facility]) Body weight 91.400 kg 91.400 kg [facility] ([facility]) Body height 64 [in_i] 64 [in_i] [facility] ([facility]) 5'4" Body mass index (BMI) [Ratio] 34.6 kg/m2 34.6 k g/m2 [facility] ([facility]) Body surface area Derived from formula 1.96 m2 1.96 m2 [facility] ([facility]) Systolic blood pressure 118 mm[Hg] 118 mm[Hg] [facility] ([facility]) Diastolic blood pressure 70 mm[Hg] 70 mm[Hg] [facility] ([facility]) Heart rate 72 /min 72 /min [facility] ([facility]) Body temperature 96.4 [degF] 96.4 [degF] [facility] ([facility]) Respiratory rate 20 /min 20 /min [facility] ( [facility]) Oxygen saturation in Arterial blood by Pulse oximetry 97 % 97 % [facility] ([facility]) Body weight 201.50 [lb_av] 201.50 [lb_av] [facility] ([facility]) Systolic blood pressure 128 mm[Hg] 128 mm[Hg] [facility] ([facility]) Diastolic blood pressure 78 mm[Hg] 78 mm[Hg] [facility] ([facility]) Heart rate 82 /min 82 /min [facility] ([facility]) Body temperature 96.8 [degF] 96.8 [degF] [facility] ([facility]) Respiratory rate 18 /min 18 /min [facility] ( [facility]) Oxygen saturation in Arterial blood by Pulse oximetry 97 % 97 % [facility] ([facility]) Body weight 201.00 [lb_av] 201.00 [lb_av] [facility] ([facility]) Body weight 91.174 kg 91.174 [facility] Body height 64 [in_i] 64 [in_i] [facility] ([facility]) 5'4" Body mass index (BMI) [Ratio] 34.5 kg/m2 34.5 k g/m2 [facility] ([facility]) Body surface area Derived from formula 1.96 m2 1.96 m2 [facility] ([facility]) Oxygen saturation in Arterial blood by Pulse oximetry 97 % 97 % [facility] ([facility]) Respiratory rate 18 /min 18 /min [facility] ( [facility]) Body weight 205.38 [lb_av] 205.38 [lb_av] [facility] ([facility]) Body height 64 [in_i] 64 [in_i] [facility] ([facility]) 5'4" Body surface area Derived from formula 1.98 m2 1.98 m2 [facility] ([facility]) Systolic blood pressure 128 mm[Hg] 128 mm[Hg] [facility] ([facility]) Diastolic blood pressure 80 mm[Hg] 80 mm[Hg] [facility] ([facility]) Heart rate 68 /min 68 /min [facility] ([facility]) Body temperature 96.8 [degF] 96.8 [degF] [facility] ([facility]) Body weight 93.158 kg 93.158 kg [facility] ([facility]) Body mass index (BMI) [Ratio] 35.2 kg/m2 35.2 k g/m2 [facility] ([facility]) Systolic blood pressure 118 mm[Hg] 118 mm[Hg] [facility] ([facility]) Body weight 90.323 kg 90.323 kg [facility] ([facility]) Diastolic blood pressure 78 mm[Hg] 78 mm[Hg] [facility] ([facility]) Body height 64 [in_i] 64 [in_i] [facility] ([facility]) 5'4" Body temperature 97.4 [degF] 97.4 [degF] [facility] ([facility]) Respiratory rate 18 /min 18 /min [facility] ( [facility]) Oxygen saturation in Arterial blood by Pulse oximetry 98 % 98 % [facility] ([facility]) Body weight 199.12 [lb_av] 199.12 [lb_av] [facility] ([facility]) Body mass index (BMI) [Ratio] 34.2 kg/m2 34.2 k g/m2 [facility] ([facility]) Heart rate 68 /min 68 /min [facility] ([facility]) Body surface area Derived from formula 1.95 m2 1.95 m2 [facility] ([facility])
--- OUTSIDE RECORDS SUMMARY | 2021-03-21 11:17 | CCD | Continuity of Care Document ---
Author Author Cam WARREN Organization Unknown Address [address] [place] [address] Phone [phone] Care Team Providers Care Heating And Ventilating Tender Name Role Phone Clara Warren AUTM [phone] Problems Active Problems Provider Date Essential hypertension [...] CARINA Alexander, PNP Onset: [address] [facility] Onset: 020 Edema CARINA Alexander, PNP Onset: [...] Every Day 90caps N40.1 CARINA Alexander, P [employer]ISKEY FIL[employer]ER 01/22/2018 Metoprolol Tartrate 100mg Tablets take one tablet by mouth twice a day 180tabs I10 CARINA Alexander, PNP 10/23/2017 Lumigan 0.01% Solution 1 drop both eyes at bedtime 2.500ml H40.9 CARINA Alexander, PNP 10/24/19 18 Pravastatin Sodium 20mg Tablets Take One Tablet By Mouth AT Bedtime 90tabs E78.2 CARINA Alexander, P [employer] FIL[employer] 10/05/2017 Ventolin HFA 108(90Base) mcg/Act A erosol 2 puff by mouth four times a day as needed 18gm J45.998 Rosalind Andres rae, ANP-BC, PNP Tuxiy-2-Orjz Ethyl Esters 1gm Caps ules take two [...] H/L Range Note Comprehensive Metabolic Profil 12/22/2020 [facility] Glucose, Fasting 113 mg/dL High [...] Albumin/Globulin Ratio 0.9 Normal Lipid Panel 12/22/2020 [facility] Triglycerides Level 122 mg/dL Normal <150 Cholesterol Level 160 mg/dL Normal <200 HDL Cholesterol 50 mg/dL Normal >40 LDL Cholesterol 86 mg/dL Normal <100 Non-HDL-C 110 mg/dL Normal Cholesterol Risk Ratio 3.200 Normal <5 Laboratory test finding 12/22/2020 [facility] Magnesium Level 2.3 mg/dL Normal 1.8-2.4 Thyroid Stimulating Hormone 2.580 uIU/ML Normal 0.358-3.740 Hemoglobin A1c 12/22/2020 [facility] Hemoglobin A1c 6.0 % Normal 2 Estimated Average Glucose 126 mg/dL High 60-110 Comprehensive Metabolic Profil 12/22/2020 [facility] Glucose, Fasting 110 mg/dL High [...] Albumin/Globulin Ratio 1.0 Normal Lipid Panel 12/22/2020 [facility] Triglycerides Level 125 mg/dL Normal <150 Cholesterol Level 165 mg/dL Normal <200 HDL Cholesterol 50 mg/dL Normal >40 LDL Cholesterol 90 mg/dL Normal <100 Non-HDL-C 115 mg/dL Normal Cholesterol Risk Ratio 3.300 Normal <5 Hemoglobin A1c 12/22/2020 [facility] Hemoglobin A1c 6.1 % Normal 4 Estimated Average Glucose 128 mg/dL High 60-110 CBC With Differential 12/22/2020 [facility] White Blood Count 5.9 10 [...] 36.0-66.0 Lymph % 30.0 % Normal 24.0-44.0 Trimble % 9.3 % High 2.0-8.0 Eos % 0.2 % Normal 0.0-3.0 Baso % 0.0 % Normal 0.0-1.0 Immature Granulocyte % 0.5 % Normal 0-3.0 Nucleated Red Blood Cell % 0.0 % Normal 0-0 Neutrophils # 3.6 10 Normal 1.5-8.5 Lymph # 1.8 10 Normal 1.5-5.0 Trimble # 0.6 10 Normal 0.0-0.8 Eos # 0.0 10 Normal 0.0-0.5 Baso # 0.0 10 Normal 0.0-0.2 CBC With Differential 07/28/2020 [facility] White Blood Count 6.1 10 Normal 4.0-10.0 [...] 36.0-66.0 Lymph % 31.9 % Normal 24.0-44.0 Trimble % 12.9 % High 2.0-8.0 Eos % 0.0 % Normal 0.0-3.0 Baso % 0.2 % Normal 0.0-1.0 Immature Granulocyte % 0.3 % Normal 0-3.0 Nucleated Red Blood Cell % 0.0 % Normal 0-0 Neutrophils # 3.3 10 Normal 1.5-8.5 Lymph # 1.9 10 Normal 1.5-5.0 Trimble # 0.8 10 Normal 0.0-0.8 Eos # 0.0 10 Normal 0.0-0.5 Baso # 0.0 10 Normal 0.0-0.2 Hemoglobin A1c 07/28/2020 [facility] Hemoglobin A1c 5.9 % Normal 5 Estimated Average Glucose 123 mg/dL High 60-110 Comprehensive Metabolic Profil 07/28/2020 [facility] Glucose, Fasting 109 mg/dL High 70-100 Blood [...] Albumin/Globulin Ratio 1.0 Normal Lipid Panel 07/28/2020 [facility] Triglycerides Level 188 mg/dL High <150 Cholesterol Level 188 mg/dL Normal <200 HDL Cholesterol 43 mg/dL Normal >40 LDL Cholesterol 107 mg/dL High <100 Non-HDL-C 145 mg/dL Normal Cholesterol Risk Ratio 4.372 Normal <5 Laboratory test finding 07/28/2020 [facility] Magnesium Level 2.1 mg/dL Normal 1.8-2.4 Thyroid Stimulating Hormone 1.640 uIU/ML Normal 0.358-3.740 1 Units are mL/min/1.73 m2 Chronic Kidney Disease Staging per NKF: Stage I & II GFR >=60 Normal to Mildly Decreased Stage III GFR 30-59 Moderately Decreased Stage IV GFR 15-29 Severely Decreased Stage V GFR <15 Very Little GFR Left ESRD GFR <15 on DIRECTOR SURGICAL 2 REFERENCE RANGES: <=5.6% NORMAL 5.7-6.4% SUGGESTS IMPAIRED GLUCOSE META BOLISM/PREDIABETIC >= 6.5% ABNORMAL 3 Units are mL/min/1.73 m2 Chronic Kidney Disease Staging per NKF: Stage I & II GFR >=60 Normal to Mildly Decreased Stage III GFR 30-59 Moderately Decreased Stage IV GFR 15-29 Severely Decreased Stage V GFR <15 Very Little GFR Left ESRD GFR <15 on DIRECTOR SURGICAL 4 REFERENCE RANGES: <=5.6% NORMAL 5.7-6.4% SUGGESTS [...] Little GFR Left ESRD GFR <15 on DIRECTOR SURGICAL Procedures Date Code Description Status 10/18/2020 89033 Office/Outpatient Established Mo d MDM 30-39 Min Completed 08/17/2020 95845 Office/Outpatient Established Mo d MDM 30-39 Min Completed Medical Devices Description No Information Available Encounters Description No Information Available Assessments Date Code Description Provider 10/18/2020 N28.9 Disorder of kidney and ureter, u nspecified Clara Briana, [facility] 10/18/2020 I10 Essential (primary) hypertension Clara Briana, [facility] 10/18/2020 E78.2 Mixed hyperlipidemia Clara Wanda , [facility] 10/18/2020 R73.03 Prediabetes Clara Zita Warren [employer] 10/18/2020 J45.998 Other asthma Clara Zita Warren [employer] 10/18/2020 K21.9 Gastro-esophageal reflux disease without esophagitis Clara Nevills, PC MAINTENANCE TECHNICIAN 10/18/2020 N40.1 Benign prostatic hyperplasia wit h lower urinary tract symptoms Clara Nevills, PC MAINTENANCE TECHNICIAN 10/18/2020 E83.42 Hypomagnesemia Clara Nevills, F [employer] 10/18/2020 M25.561 Pain in right knee Clara Nevills , PC MAINTENANCE TECHNICIAN 10/18/2020 M25.562 Pain in left knee Clara Nevills, PC MAINTENANCE TECHNICIAN 10/18/2020 Z79.899 Other penitentiary (current) drug t herapy Clara Nevills, PC MAINTENANCE TECHNICIAN 10/18/2020 F41.8 Other specified anxiety disorder s Clara Nevills, PC MAINTENANCE TECHNICIAN 08/17/2020 I10 Essential (primary) hypertension Clara Nevills, PC MAINTENANCE TECHNICIAN 08/17/2020 E78.2 Mixed hyperlipidemia Clara Nevil ls, [facility] 08/17/2020 R73.03 Prediabetes Clara Nevills, F [employer] 08/17/2020 J45.998 Other asthma Clara Nevills, F [employer] 08/17/2020 K21.9 Gastro-esophageal reflux disease without esophagitis Clara Nevills, PC MAINTENANCE TECHNICIAN 08/17/2020 N40.1 Benign prostatic hyperplasia wit h lower urinary tract symptoms Clara Nevills, PC MAINTENANCE TECHNICIAN 08/17/2020 E83.42 Hypomagnesemia Clara Nevills, F [employer] 08/17/2020 N28.9 Disorder of kidney and ureter, u nspecified Clara Nevills, [facility] 08/17/2020 Z79.899 Other penitentiary (current) drug t herapy Clara Nevills, PC MAINTENANCE TECHNICIAN Plan of Treatment Future Appointment(s):* 01/18/2021 11:20 am - Claraalexandra Warren, PC MAINTENANCE TECHNICIAN at [facility] 10/18/2020 - Clara Nevills, PC MAINTENANCE TECHNICIAN* N28.9 Disorder of kidney and ureter, unspecified* [...] will continue to monitor. * Z79.899 Other corporate planning manager (current) drug therapy* Comments:* Patient to continue [...] Referral Status Appt Date [facility]. Renal insuffic iency. Please evaluate and treat as needed. Thank you! Closed 11/18/2020 [address] [place] [address] [phone]
--- OUTSIDE RECORDS SUMMARY | 2021-03-21 13:17 | CCD ---
Author Author [facility] Organization [facility] Address Unknown Phone Unavailable Care Team Providers Care Diving Instructor Name Role Phone Nevills, C Clara JEWELRY REPAIRER Unavailable Unavailable Nevills, C Clara JEWELRY REPAIRER Unavailable Unavailable Nevills, C Clara JEWELRY REPAIRER Unavailable Unavailable Nevills, C Clara JEWELRY REPAIRER Unavailable Unavailable Nevills, C Clara JEWELRY REPAIRER Unavailable Unavailable Nevills, C Clara JEWELRY REPAIRER Unavailable Unavailable Nevills, C Clara JEWELRY REPAIRER Unavailable Unavailable Nevills, C Clara JEWELRY REPAIRER Unavailable Unavailable Nevills, C Clara JEWELRY REPAIRER Unavailable Unavailable Nevills, C Clara JEWELRY REPAIRER Unavailable Unavailable Nevills, C Clara JEWELRY REPAIRER Unavailable Unavailable Nevills, C Clara JEWELRY REPAIRER Unavailable Unavailable Nevills, C Clara JEWELRY REPAIRER Unavailable Unavailable Nevills, C Clara JEWELRY REPAIRER Unavailable Unavailable Nevills, C Clara JEWELRY REPAIRER Unavailable Unavailable Nevills, C Clara JEWELRY REPAIRER Unavailable Unavailable Nevills, C Clara JEWELRY REPAIRER Unavailable Unavailable Nevills, C Clara JEWELRY REPAIRER Unavailable Unavailable Nevills, C Clara JEWELRY REPAIRER Unavailable Unavailable Nevills, C Clara JEWELRY REPAIRER Unavailable Unavailable Nevills, C Clara JEWELRY REPAIRER Unavailable Unavailable Nevills, C Clara JEWELRY REPAIRER Unavailable Unavailable Nevills, C Clara JEWELRY REPAIRER Unavailable Unavailable Nevills, C Clara JEWELRY REPAIRER Unavailable Unavailable Nevills, C Clara JEWELRY REPAIRER Unavailable Unavailable Nevills, C Clara JEWELRY REPAIRER Unavailable Unavailable Nevills, C Clara JEWELRY REPAIRER Unavailable Unavailable Nevills, C Clara JEWELRY REPAIRER Unavailable Unavailable Nevills, C Clara JEWELRY REPAIRER Unavailable Unavailable Nevills, C Clara JEWELRY REPAIRER Unavailable Unavailable Nevills, C Clara JEWELRY REPAIRER Unavailable Unavailable Nevills, C Clara JEWELRY REPAIRER Unavailable Unavailable Nevills, C Clara JEWELRY REPAIRER Unavailable Unavailable Nevills, C Clara JEWELRY REPAIRER Unavailable Unavailable DRAZEK, I CHAD PA Unavailable [...] Vinny, Corine Rosalind ANP-BC Unavailable Unavailable Vinny, Cornie Rosalind ANP-BC Unavailable Unavailable Vinny, Corine Rosalind ANP-BC Unavailable Unavailable Vinny, Corine Rosalind ANP-BC Unavailable Unavailable Vinny, Corine Rosalind ANP-BC Unavailable Unavailable Vinny, Corine Rosalind ANP-BC Unavailable Unavailable Vinny, Corine Rosalind ANP-BC Unavailable Unavailable Vinny, Corine Rosalind ANP-BC Unavailable Unavailable Vinny, Corine Rosalind ANP-BC Unavailable Unavailable Vinny, Corine Rosalind ANP-BC Unavailable Unavailable Vinny, Cornie Rosalind ANP-BC Unavailable Unavailable Vinny, Corine Rosalind [...] Corine Rosalind ANP-BC Unavailable Unavailable Vinny, Corine Rosalnid ANP-BC Unavailable Unavailable Vinny, Corine Rosalind ANP-BC [...] Unavailable Unavailable Corine Casillasn ANP-BC Unavailable Unavailable Corine Casillasn ANP-BC Unavailable Unavailable Corine Casillasn ANP-BC Unavailable Unavailable Corine Casillasn ANP-BC Unavailable Unavailable Corine Casillasn ANP-BC Unavailable Unavailable Corine Casillasn ANP-BC Unavailable Unavailable Corine Casillasn ANP-BC Unavailable Unavailable Ta, [place] Navya Unavailable Unavailable Ta, [place] Navya Unavailable Unavailable Ta, [place] Navya Unavailable Unavailable Ta, [place] Navya Unavailable Unavailable Ta, [place] Navya Unavailable Unavailable Ta, [place] Navya Unavailable Unavailable Ta, [place] Navya Unavailable Unavailable Ta, [place] Navya Unavailable Unavailable Ta, [place] Navya Unavailable Unavailable Ta, [place] Navya Unavailable Unavailable Ta, [place] Navya Unavailable Unavailable Ta, [place] Navya Unavailable Unavailable Ta, [place] Navya Unavailable Unavailable Re-disclosure Warning The records [...] is protected by Article 27-F of the [facility] Public Health law. If you continue you may have access to information: Regarding HIV / AIDS; Provided by facilities licensed or operated by the [facility] Office of Mental Health; or Provided by the [facility] Office for People With Developmental Disabilities. If such information is present, then the following [facility] mandated warning applies: This information has [...] law may result in a fine or penitentiary sentence or both. A general authorization for the release of medical or other information is NOT sufficient authorization for further disc losure. Allergies and Adverse Reactions Type Description Substance Reaction Status Data Source(s ) Allergy to substance Allergy to substance Allergy to substance [facility]LON ([facility]) Family History Family Member Name Family Member Gender Family Member Status Date o f Status Description Data Source(s) Unknown Male Problem [facility]ENT ([facility]) Unknown Male Problem [facility] ([facility] () Encounters Encounter Providers Location Date Indications Data Source(s ) OFFICE OUTPATIENT VISIT 15 MINUTES Attender: CHAD JOHNS Phys ical Therapy 03/03/2021 10:30:00 AM EDT MEDENT ([facility]) Outpatient Attender: Clara Warren NPConsultant: Rosalind LIM 02/07/2021 11:04:00 AM EDT - 02/07/2021 11:04:00 AM EDT [facility] Outpatient Attender: CHAD JOHNS Physical Therapy 12/31/2020 0 2:30:00 PM EDT MEDENT ([facility]) [place] [address] [address] 12/14/2020 12:00:00 AM EDT eCW1 ([facility]) Outpatient Attender: Clara Warren NPConsultant: Rosalind MARTI-BC 10/18/2020 11:09:00 AM EDT - 10/18/2020 11:09:00 AM EDT [facility] Unknown [address] [address] 10/13/2020 12:00:00 AM EDT eCW1 ([facility]) AMBER Forbes-C: [address] [place] [phone], Ph. Attender: Navya Ta [place] - [facility] Medical 09/01/2020 12:00:00 AM EDT MARLON ([facility]) Outpatient Attender: Clara Briana NPConsultant: Rosalind Casillas ANP-BC 08/17/2020 10:04:00 AM EDT - 08/17/2020 10:04:00 AM EDT [facility] Outpatient Attender: Rosalind MARTI-BCConsultant: Rosalind mars ANP-BC 05/13/2020 08:53:00 AM EST - 05/13/2020 08:53:00 AM EST [facility] Outpatient Attender: Rosalind MARTI-BCConsultant: Rosalind mars ANP-BC 02/12/2020 08:43:00 AM EDT - 02/12/2020 08:43:00 AM EDT [facility] Immunizations Vaccine Date Status Description Data Source(s) COVID-19 vaccine, vector-nr, rS-Ad26, PF, 0.5 mL 09/02/2020 01:57:22 PM EDT completed 10.5 mL [facility]) COVID-19 VACCINE Brittney 09/02/2020 12:00:00 AM EDT completed NYSIIS Vaccine Series Complete: YESThis Data wa s Submitted to [facility] Via [employer]. Medications Medication Brand Name Start Date Product [...] BY MOUTH TWICE A DAY SOLD: 03/06/2021 [facility] 0.005 % 01/19/2021 12:00:00 AM EDT [...] EYE TWO TIMES A DAY SOLD: 07/29/2020 [facility] 0.1 % 06/29/2020 12:00:00 AM [...] 05/13/2020 12:00:00 AM EST ORAL active MEDENT ([facility]) 100 mg 05/13/2020 12:00:00 AM EST tablet 180 TAKE ONE TABLET BY MOUTH TWICE A DAY TAKE ONE TABLET BY MOUTH TWICE A DAY SOLD: 02/06/2021 [facility] 500 mg 05/13/2020 12:00:00 AM EST tablet extended release 24 hr 90 TAKE ONE TABLET BY MOUTH EVERY DAY WITH BREAKFAST TAKE ONE TABLET BY MOUTH EVERY DAY WITH BREAKFAST SOLD: 05/17/2020 [facility] 100 mg 05/13/2020 12:00:00 AM [...] type / Coverage type Policy ID Covered green party ID Covered green party's relationship to cox Policy [employer] Plan Information Medicaid [place] Medigap Part B [id number] Self Medicare [facility] Medigap Part B [id number] Self [employer] Medigap Part B [id number] Self [employer] Medigap Part B [id number] Self [employer](NF) Workers Compensation [id number] Self [facility] Medicare Commercial [id number] Self [id number] MEDICAID [id number] S [id number] [employer] [place] [employer] [id number] [id number]. [id number] Self [id number] [employer] [place] [employer] [id number] 840.1. [id number] Self [id number] [employer] Medicare Commercial [id number] Self [id number] United[employer] Medicare Commercial [id number] Self [id number] [employer] [place] Commercial [id number] Self [id number] [employer] [id number] S [id number] [employer] [place] Commercial [id number] Self [id number] [employer] [id number] S [id number] TOD[employer] OPTIONS [id number] SP [id number] ANSI-Commercial [id number] Medicaid Commercial [id number] Self [id number] [facility] Commercial [id number] Self [id number] [facility] [id number] SP [id number] ANSI-Medicaid [id number] ANSI-Commercial [id number] ANSI-Medicare Part B [id number] ANSI-Health Maintenance Organization ( O) [id number] ANSI-Commercial [id number] ANSI-Medicaid [id number] ANSI-Health Maintenance Organization ( O) [id number] ANSI-Medicare Part B [id number] Medicaid Commercial [id number] Self [id number] [employer] Commercial [id number] 646.0 Self [id number] [place] [id number] 18 [id number] ANSI-Medicaid [id number] ANSI-Health Maintenance Organization ( O) [id number] ANSI-Medicare Part B [id number] ANSI-Commercial [id number] [facility] [id number] ANSI-Medicare Part B [id number] ANSI-Commercial [id number] ANSI-Medicaid [id number] ANSI-Health Maintenance Organization ( O) [id number] ANSI-Medicaid [id number] ANSI-Medicare Part B [id number] ANSI-Commercial [id number] [facility] ( O) [id number] ANSI-Medicare Part B [id number] ANSI-Medicaid [id number] ANSI-Commercial [id number] ANSI-Commercial [id number] ANSI-Medicare Part B [id number] ANSI-Medicaid [id number] Medicaid Commercial [id number] Self [id number] [employer] Commercial [id number] 646.0 Self [id number] MEDICAID [id number] SP [id number] ANSI-Medicaid [id number] ANSI-Commercial [id number] ANSI-Medicare Part B [id number] [employer]IONS [id number] SP [id number] ANSI-Medicaid [id number] ANSI-Commercial [id number] ANSI-Medicare Part B [id number] Medicaid Commercial [id number] Self [id number] [employer] Commercial [id number] 646.0 Self [id number] ANSI-Medicaid [id number] ANSI-Medicare Part B [id number] ANSI-Commercial [id number] Medicaid [facility] Part B [id number] [id number] Self [id number] [employer] Commercial [id number] 0041.0 Self [id number] ANSI-Commercial [id number] ANSI-Medicare Part B [id number] ANSI-Medicaid [id number] Medicaid Commercial [id number] Self [id number] [employer] Commercial [id number] 646.0 Self [id number] MEDICAID -PHYSICIAN [id number] [employer] -PHYSICIAN [id number] ANSI-Medicaid [id number] ANSI-Commercial [id number] ANSI-Medicare Part B [id number] ANSI-Medicare Part B [id number] ANSI-Medicaid [id number] ANSI-Commercial [id number] Medicaid Commercial [id number] Self [id number] [employer] Commercial [id number] 646.0 Self [id number] [employer] MC [id number] S [id number] MEDICAID [id number] S [id number] [employer] [id number] S [id number] [employer]IONS [id number] S [id number] MEDICARE [id number] SP [id number] A MEDICARE COMPLETE [id number] SP [id number] [employer] MC [id number] S [id number] AETNA MEDICARE [id number] S [id number] AETNA [id number] S [id number] MEDICARE [id number] S [id number] A [employer] MC [id number] S [id number] Medicaid [facility] Part B [id number] 53834.0 Self [id number] [employer] Commercial [id number] 0041.0 Self [id number] [employer] -O/P [id number] 18 [id number] MEDICAID-O/P [id number] MEDICAID PROF FEES [id number] S A [id number] [facility]) Commercial [id number] Self MEDICAID [id number] SP [id number] MEDICARE COMPLETE-[facility] O [id number] S [id number] MEDICAID M [id number] S [id number] [employer]URANCE [id number] SP [id number] [employer] O [id number] S [id number] [facility] INSURANCE () O [id number] S [id number] [facility] [id number] SP [id number] [employer] MEDICARE- [id number] 18 [id number] [employer] MEDICARE-CLINIC [id number] 18 [id number] [facility] MEDICAID [id number] SP [id number] [employer] GOLD [id number] SP [id number] C MEDICAID [place] [id number] [employer] MEDICARE HMO HM [id number] 18 [id number] [employer] GOLD [id number] SP [id number] [place] [id number] SP [id number] [employer] GOLD [id number] SP [id number] WELLCARE [id number] SP [id number] MEDICAID -RECURRING [id number] 1 [id number] WELLCARE -RECURRING [id number] 18 [id number] WELLCARE -CLINIC [id number] 18 [id number] MEDICAID [id number] MEDICAID [id number] SP [id number] ANSI-Health Maintenance Organization (HM O) [id number] ANSI-Medicare Part B [id number] ANSI-Medicaid [id number] Problems, Conditions, and Diagnoses Code Display Name Description Problem Type Effective Dates Data Source(s) [id number] 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 [facility] drug therapy Diagnosis 02/12/2020 08:43:00 AM [facility] E8342 Hypomagnesemia Hypomagnesemia Diagnosis 02/12/2020 08:43: 00 AM [facility] N401 Benign prostatic hyperplasia with lower urinary tract symptoms Benign prostatic hyperplasia with lower urinary tract symptoms Diagnosis 02/12/2020 08:43:00 AM [facility] K219 Gastro-esophageal reflux disease without esophagitis Gastro-esophageal reflux disease without esophagitis Diagnosis 02/12/2020 08:43:00 AM ED [facility] [id number] Other asthma Other asthma Diagnosis 02/12/2020 08:43:00 A M [facility] R7303 Prediabetes Prediabetes Diagnosis 02/12/2020 08:43:00 AM EDT [facility] E782 Mixed hyperlipidemia Mixed hyperlipidemia Diagnosis 02/12/2020 08:43:00 AM EDT [facility] I10 Essential (primary) hypertension Essential (primary) h ypertension Diagnosis 02/12/2020 08:43:00 AM EDT [facility] I10 [id number] Hypertension, unspecified type Problem 12/14 12:00:00 AM EDT eCW1 ([facility]) E11.9 [id number] Type 2 diabetes danelle itus without complication, unspecified whether charge auditor insulin use Problem 12/14/2020 12:00:00 AM EDT eCW 1 ([facility]) M25.561 Pain in right knee Pain in right knee Problem 12:00:00 AM EDT MEDENT ([facility]) M25.562 Pain in left knee Pain in left knee Problem 10/18/2020 12:00:00 AM EDT MEDENT ([facility]) Surgeries/Procedures Procedure Description Date Indications Data Source(s) OFFICE OUTPATIENT VISIT 15 MINUTES 03/03/2021 12:00:00 AM EDT MEDENT ([facility]) Brief Emotional/Behav Assessment W/ Scoring Doc Per Standard Inst 02/07/2021 12:00:00 AM EDT MEDENT ([facility]) Admin Patient Focused Health Risk Assessment Instrument 02/07/2021 12:00:00 AM EDT MEDENT ([facility]) ARTHROCENTESIS ASPIR&/INJECTION MAJOR JT/BURSA 021 12:00:00 AM EDT MEDENT ([facility]) RADIOLOGIC EXAM KNEE COMPLETE 4/MORE VIEWS 12/31/2020 12:00:00 AM EDT MEDENT ([facility]) OFFICE OUTPATIENT VISIT 25 MINUTES 12/31/2020 12:00:00 AM EDT MEDENT ([facility]) OFFICE OUTPATIENT VISIT 25 MINUTES 10/18/2020 12:00:00 AM EDT MEDENT ([facility]) OFFICE OUTPATIENT VISIT 25 MINUTES 08/17/2020 12:00:00 AM EDT MEDENT ([facility]) Brief Emotional/Behav Assessment W/ Scoring Doc Per Standard Inst 02/12/2020 12:00:00 AM EDT MEDENT ([facility]) Admin Patient Focused Health Risk Assessment Instrument 02/12/2020 12:00:00 AM EDT MEDENT ([facility]) Results ID Date Data Source [id number] 12/22/2020 09:32:00 AM EDT MEDENT ([facility]) Name Value Range Interpretation Code Description Data Yessica rce(s) Supporting Document(s) Estimated Average Glucose 126 mg/dL 60-110 Above high normal MEDENT ([facility]) Hemoglobin A1c 6.0 % Normal (applies to non-numeric r esults) [facility] ([facility]) <content>REFERENCE RANGES:</content><br/ ><content></content>
<content><=5.6% NORMAL</content>
<content>5.7-6.4% SUGGESTS IMPAIRED GLUCOSE METABOLISM/PREDIABETIC</content>
<content>>= 6.5% ABNORMAL</content>
<content></content> ID Date Data Source [id number] 12/22/2020 09:32:00 AM EDT MEDENT ([facility]) Name Value Range Interpretation Code Description Data Yessica rce(s) Supporting Document(s) Magnesium [Mass/volume] in Serum or Plasma 2.3 mg/dL 1.8-2 .4 Normal (applies to non-numeric results) [facility] ([facility]) Thyrotropin [Units/volume] in Serum or Plasma 2.580 uIU/ML 0. 358-3.740 Normal (applies to non-numeric results) [facility] ([facility]) ID Date Data Source [id number] 12/22/2020 09:32:00 AM EDT MED[facility] ([facility]) Name Value Range Interpretation Code Description Data Yessica rce(s) Supporting Document(s) HDL Cholesterol 50 mg/dL Normal (applies to non-numeric results) [facility] ([facility]) Triglycerides Level 122 mg/dL Normal (applies to non-nume matthew results) [facility] ([facility]) Cholesterol Level 160 mg/dL Normal (applies to non-numeri c results) [facility] Cholesterol Risk Ratio 3.200 Normal (applies to non-n umeric results) [facility] Non-HDL-C 110 mg/dL Normal (applies to non-numeric resul ts) [facility] LDL Cholesterol 86 mg/dL Normal (applies to non-numeric results) [facility] ID Date Data Source [id number] 12/22/2020 09:32:00 AM EDT [facility] ([facility]) Name Value Range Interpretation Code Description Data Yessica rce(s) Supporting Document(s) Glucose, Fasting 113 mg/dL 70-100 Above high normal [facility] ([facility]) Blood Urea Nitrogen 20 mg/dL 7-18 Above high normal [facility] ([facility]) Creatinine For GFR 1.29 mg/dL 0.70-1.30 Normal (applies to non -numeric results) [facility] Glomerular Filtration Rate 57.6 Normal (applies to n on-numeric results) [facility] ([facility]) <content>Units are mL/min/1.73 m2</content>
<content></content>
<content>Chronic Kidney Disease Staging per NKF:</content>
<content></content>
<content>Stage I & II GFR >=60 Normal to Mildly Decreased</content>
<content>Stage III GFR 30- 59 Moderately Decreased</content>
<content>Stage IV GFR 15-29 Severely Decreased</content>
<content>Stage V GFR <15 Very Little GFR Left</content>
<content>ESRD GFR <15 on [employer]</content>
<content></content> Sodium Level 143 meq/L 136-145 Normal (applies to non-numeric res ults) [facility] Potassium Serum 4.2 meq/L 3.5-5.1 Normal (applies to non-numeric results) [facility] ([facility]) Anion Gap 4 meq/L 8-16 Below low normal [facility] Carbon Dioxide Level 28 meq/L 21-32 Normal (applies to non-num linda results) [facility] ([facility]) Chloride Level 111 meq/L 98-107 Above high normal [facility] ([facility]) Calcium Level 9.3 mg/dL 8.8-10.2 Normal (applies to non-numeric re sults) [facility] ([facility]) Ast/Sgot 21 U/L 7-37 Normal (applies to non-numeric resul ts) [facility] ([facility]) Alt/SGPT 26 U/L 12-78 Normal (applies to non-numeric resul ts) [facility] ([facility]) Alkaline Phosphatase 81 U/L 45-117 Normal (applies to non-num linda results) [facility] ([facility]) Total Protein 7.3 GM/DL 6.4-8.2 Normal (applies to non-numeric re sults) [facility] ([facility]) Bilirubin,Total 0.7 mg/dL 0.2-1.0 Normal (applies to non-numeric results) [facility] Albumin/Globulin Ratio 0.9 Normal (applies to non-n umeric results) [facility] ([facility]) Albumin 3.5 GM/DL 3.2-5.2 Normal (applies to non-numeric resul ts) [facility]) ID Date Data Source [id number] 12/22/2020 09:32:00 AM EDT [facility]) Name Value Range Interpretation Code Description Data Yessica rce(s) Supporting Document(s) White Blood Count 5.9 10 4.0-10.0 Normal (applies to non-numeri c results) [facility] ([facility]) Red Blood Count 4.26 10 4.30-6.10 Below low normal [facility] ([facility]) Hemoglobin 13.2 g/dL 13.5-17.5 Below low normal [facility] ( [facility]) Hematocrit 39.6 % 42.0-52.0 Below low normal [facility] ( [facility]) Mean Corpuscular Hemoglobin 31.0 pg 27.0-33.0 Norm al (applies to non-numeric results) [facility] ([facility]) Mean Corpuscular Volume 93.0 fl 80.0-96.0 Normal ( applies to non-numeric results) [facility]) Mean Corpuscular HGB Conc 33.3 g/dL 32.0-36.5 Normal (applies to non-numeric results) [facility] ([facility]) Red Cell Distribution Width 13.0 % 11.5-14.5 Norm al (applies to non-numeric results) [facility] ([facility]) Platelet Count, Automated 149 10 150-450 Below low normal [facility] ([facility]) Neutrophils % 60.0 % 36.0-66.0 Normal (applies to non-numeric re sults) [facility] ([facility]) Lymph % 30.0 % 24.0-44.0 Normal (applies to non-numeric resul ts) [facility] ([facility]) Baso % 0.0 % 0.0-1.0 Normal (applies to non-numeric resul ts) [facility] ([facility]) [place] % 9.3 % 2.0-8.0 Above high normal [facility] ([facility]) Eos % 0.2 % 0.0-3.0 Normal (applies to non-numeric resul ts) [facility] ([facility]) Nucleated Red Blood Cell % 0.0 % 0-0 Normal (applies to n on-numeric results) [facility] ([facility]) Neutrophils # 3.6 10 1.5-8.5 Normal (applies to non-numeric re sults) [facility] ([facility]) Immature Granulocyte % 0.5 % 0-3.0 Normal (applies to non-n umeric results) [facility]) [place] # 0.6 10 0.0-0.8 Normal (applies to non-numeric resul ts) [facility] ([facility]) Lymph # 1.8 10 1.5-5.0 Normal (applies to non-numeric resul ts) [facility] ([facility]) Eos # 0.0 10 0.0-0.5 Normal (applies to non-numeric resul ts) [facility] ([facility]) Baso # 0.0 10 0.0-0.2 Normal (applies to non-numeric resul ts) [facility] ([facility]) ID Date Data Source [id number] 12/22/2020 09:28:00 AM EDT [facility]) Name Value Range Interpretation Code Description Data Yessica rce(s) Supporting Document(s) Hemoglobin A1c 6.1 % Normal (applies to non-numeric r esults) [facility] ([facility]) <content>REFERENCE RANGES:</content><br/ ><content></content>
<content><=5.6% NORMAL</content>
<content>5.7-6.4% SUGGESTS IMPAIRED GLUCOSE METABOLISM/PREDIABETIC</content>
<content>>= 6.5% ABNORMAL</content>
<content></content> Estimated Average Glucose 128 mg/dL 60-110 Above high normal [facility] ([facility]) ID Date Data Source [id number] 12/22/2020 09:28:00 AM EDT [facility] ([facility]) Name Value Range Interpretation Code Description Data Yessica rce(s) Supporting Document(s) Triglycerides Level 125 mg/dL Normal (applies to non-nume matthew results) [facility] ([facility]) HDL Cholesterol 50 mg/dL Normal (applies to non-numeric results) [facility] ([facility]) Cholesterol Level 165 mg/dL Normal (applies to non-numeri c results) [facility] ([facility]) LDL Cholesterol 90 mg/dL Normal (applies to non-numeric results) [facility] ([facility]) Cholesterol Risk Ratio 3.300 Normal (applies to non-n umeric results) [facility] ([facility]) Non-HDL-C 115 mg/dL Normal (applies to non-numeric resul ts) [facility] ([facility]) ID Date Data Source [id number] 12/22/2020 09:28:00 AM EDT [facility] ([facility]) Name Value Range Interpretation Code Description Data Yessica rce(s) Supporting Document(s) Glucose, Fasting 110 mg/dL 70-100 Above high normal [facility] ([facility]) Blood Urea Nitrogen 19 mg/dL 7-18 Above high normal [facility] ([facility]) Creatinine For GFR 1.18 mg/dL 0.70-1.30 Normal (applies to non -numeric results) [facility] ([facility]) Sodium Level 145 meq/L 136-145 Normal (applies to non-numeric res ults) [facility] ([facility]) Glomerular Filtration Rate Laboratory test result Normal (applies to non- numeric results) [facility] ([facility]) <content>Units are mL/min/1.73 m2</content>
<content></content>
<content>Chronic Kidney Disease Staging per NKF:</content>
<content></content>
<content>Stage I & II GFR >=60 Normal to Mildly Decreased</content>
<content>Stage III GFR 30- 59 Moderately Decreased</content>
<content>Stage IV GFR 15-29 Severely Decreased</content>
<content>Stage V GFR <15 Very Little GFR Left</content>
<content>ESRD GFR <15 on INTERIOR HORTICULTURIST</content>
<content></content> Chloride Level 113 meq/L 98-107 Above high normal [facility] ([facility]) Potassium Serum 4.1 meq/L 3.5-5.1 Normal (applies to non-numeric results) [facility] ([facility]) Carbon Dioxide Level 27 meq/L 21-32 Normal (applies to non-num linda results) [facility] ([facility]) Calcium Level 9.7 mg/dL 8.8-10.2 Normal (applies to non-numeric re sults) [facility] ([facility]) Anion Gap 5 meq/L 8-16 Below low normal [facility] ( [facility]) Ast/Sgot 17 U/L 7-37 Normal (applies to non-numeric resul ts) [facility] ([facility]) Alt/SGPT 27 U/L 12-78 Normal (applies to non-numeric resul ts) [facility] ([facility]) Bilirubin,Total 0.7 mg/dL 0.2-1.0 Normal (applies to non-numeric results) [facility] ([facility]) Alkaline Phosphatase 87 U/L 45-117 Normal (applies to non-num linda results) [facility] ([facility]) Total Protein 7.3 GM/DL 6.4-8.2 Normal (applies to non-numeric re sults) [facility] ([facility]) Albumin/Globulin Ratio 1.0 Normal (applies to non-n umeric results) [facility] ([facility]) Albumin 3.7 GM/DL 3.2-5.2 Normal (applies to non-numeric resul ts) [facility] ([facility]) ID Date Data Source [id number] 07/28/2020 09:12:00 AM EDT [facility]) Name Value Range Interpretation Code Description Data Yessica rce(s) Supporting Document(s) Thyrotropin [Units/volume] in Serum or Plasma 1.640 uIU/ML 0. 358-3.740 Normal (applies to non-numeric results) [facility] ([facility]) Magnesium [Mass/volume] in Serum or Plasma 2.1 mg/dL 1.8-2 .4 Normal (applies to non-numeric results) [facility] ([facility]) ID Date Data Source [id number] 07/28/2020 09:12:00 AM EDT [facility]) Name Value Range Interpretation Code Description Data Yessica rce(s) Supporting Document(s) Cholesterol Level 188 mg/dL Normal (applies to non-numeri c results) [facility] ([facility]) Triglycerides Level 188 mg/dL Above high normal [facility] LDL Cholesterol 107 mg/dL Above high normal [facility] ([facility]) HDL Cholesterol 43 mg/dL Normal (applies to non-numeric results) [facility]) Cholesterol Risk Ratio 4.372 Normal (applies to non-n umeric results) [facility] ([facility]) Non-HDL-C 145 mg/dL Normal (applies to non-numeric resul ts) [facility] ([facility]) ID Date Data Source [id number] 07/28/2020 09:12:00 AM EDT [facility] ([facility]) Name Value Range Interpretation Code Description Data Yessica rce(s) Supporting Document(s) Glucose, Fasting 109 mg/dL 70-100 Above high normal [facility] ([facility]) Creatinine For GFR 1.41 mg/dL 0.70-1.30 Above high normal [facility] ([facility]) Blood Urea Nitrogen 22 mg/dL 7-18 Above high normal [facility] ([facility]) Sodium Level 145 meq/L 136-145 Normal (applies to non-numeric res ults) [facility] ([facility]) Glomerular Filtration Rate 52.0 Normal (applies to n on-numeric results) [facility] ([facility]) <content>Units are mL/min/1.73 m2</content>
<content></content>
<content>Chronic Kidney Disease Staging per NKF:</content>
<content></content>
<content>Stage I & II GFR >=60 Normal to Mildly Decreased</content>
<content>Stage III GFR 30- 59 Moderately Decreased</content>
<content>Stage IV GFR 15-29 Severely Decreased</content>
<content>Stage V GFR <15 Very Little GFR Left</content>
<content>ESRD GFR <15 on INTERIOR HORTICULTURIST</content>
<content></content> Chloride Level 111 meq/L 98-107 Above high normal [facility] ([facility]) Potassium Serum 4.4 meq/L 3.5-5.1 Normal (applies to non-numeric results) [facility] ([facility]) Carbon Dioxide Level 28 meq/L 21-32 Normal (applies to non-num linda results) [facility] ([facility]) Anion Gap 6 meq/L 8-16 Below low normal [facility] ( [facility]) Calcium Level 9.5 mg/dL 8.8-10.2 Normal (applies to non-numeric re sults) [facility] ([facility]) Ast/Sgot 14 U/L 7-37 Normal (applies to non-numeric resul ts) [facility] ([facility]) Alt/SGPT 19 U/L 12-78 Normal (applies to non-numeric resul ts) [facility] ([facility]) Alkaline Phosphatase 96 U/L 45-117 Normal (applies to non-num linda results) [facility] ([facility]) Bilirubin,Total 0.6 mg/dL 0.2-1.0 Normal (applies to non-numeric results) [facility] ([facility]) Albumin 3.7 GM/DL 3.2-5.2 Normal (applies to non-numeric resul ts) [facility] ([facility]) Total Protein 7.4 GM/DL 6.4-8.2 Normal (applies to non-numeric re sults) [facility] ([facility]) Albumin/Globulin Ratio 1.0 Normal (applies to non-n umeric results) [facility] ([facility]) ID Date Data Source [id number] 07/28/2020 09:12:00 AM EDT [facility] ([facility]) Name Value Range Interpretation Code Description Data Yessica rce(s) Supporting Document(s) Estimated Average Glucose 123 mg/dL 60-110 Above high normal [facility] ([facility]) Hemoglobin A1c 5.9 % Normal (applies to non-numeric r esults) [facility] ([facility]) <content>REFERENCE RANGES:</content><br/ ><content></content>
<content><=5.6% NORMAL</content>
<content>5.7-6.4% SUGGESTS IMPAIRED GLUCOSE METABOLISM/PREDIABETIC</content>
<content>>= 6.5% ABNORMAL</content>
<content></content> ID Date Data Source [id number] 07/28/2020 09:12:00 AM EDT [facility]) Name Value Range Interpretation Code Description Data Yessica rce(s) Supporting Document(s) Red Blood Count 4.41 10 4.30-6.10 Normal (applies to non-numeric results) [facility] ([facility]) White Blood Count 6.1 10 4.0-10.0 Normal (applies to non-numeri c results) [facility] ([facility]) Hematocrit 40.4 % 42.0-52.0 Below low normal [facility] ( [facility]) Hemoglobin 13.4 g/dL 13.5-17.5 Below low normal [facility] ( [facility]) Mean Corpuscular Volume 91.6 fl 80.0-96.0 Normal ( applies to non-numeric results) [facility] ([facility]) Red Cell Distribution Width 13.2 % 11.5-14.5 Norm al (applies to non-numeric results) [facility] ([facility]) Mean Corpuscular Hemoglobin 30.4 pg 27.0-33.0 Norm al (applies to non-numeric results) [facility] ([facility]) Mean Corpuscular HGB Conc 33.2 g/dL 32.0-36.5 Normal (applies to non-numeric results) [facility] ([facility]) Neutrophils % 54.7 % 36.0-66.0 Normal (applies to non-numeric re sults) [facility] ([facility]) Platelet Count, Automated 177 10 150-450 Normal (applies to non-numeric results) [facility] ([facility]) Lymph % 31.9 % 24.0-44.0 Normal (applies to non-numeric resul ts) [facility] ([facility]) [place] % 12.9 % 2.0-8.0 Above high normal [facility] ([facility]) Eos % 0.0 % 0.0-3.0 Normal (applies to non-numeric resul ts) [facility] ([facility]) Baso % 0.2 % 0.0-1.0 Normal (applies to non-numeric resul ts) [facility] ([facility]) Immature Granulocyte % 0.3 % 0-3.0 Normal (applies to non-n umeric results) [facility]) Nucleated Red Blood Cell % 0.0 % 0-0 Normal (applies to n on-numeric results) [facility] ([facility]) Neutrophils # 3.3 10 1.5-8.5 Normal (applies to non-numeric re sults) [facility] ([facility]) [place] # 0.8 10 0.0-0.8 Normal (applies to non-numeric resul ts) [facility] ([facility]) Eos # 0.0 10 0.0-0.5 Normal (applies to non-numeric resul ts) [facility] ([facility]) Lymph # 1.9 10 1.5-5.0 Normal (applies to non-numeric resul ts) [facility] ([facility]) Baso # 0.0 10 0.0-0.2 Normal (applies to non-numeric resul ts) [facility] ([facility]) ID Date Data Source [id number] 04/28/2020 09:00:00 AM EST [facility] ([facility]) Name Value Range Interpretation Code Description Data Yessica rce(s) Supporting Document(s) Magnesium [Mass/volume] in Serum or Plasma 2.3 mg/dL 1.8-2 .4 Normal (applies to non-numeric results) [facility] ([facility]) ID Date Data Source [id number] 04/28/2020 09:00:00 AM EST [facility] ([facility]) Name Value Range Interpretation Code Description Data Yessica rce(s) Supporting Document(s) Triglycerides Level 230 mg/dL Above high normal [facility] ([facility]) Cholesterol Level 189 mg/dL Normal (applies to non-numeri c results) [facility] ([facility]) HDL Cholesterol 46 mg/dL Normal (applies to non-numeric results) [facility] ([facility]) LDL Cholesterol 97 mg/dL Normal (applies to non-numeric results) [facility] ([facility]) Cholesterol Risk Ratio 4.108 Normal (applies to non-n umeric results) [facility] ([facility]) Non-HDL-C 143 mg/dL Normal (applies to non-numeric resul ts) [facility] ([facility]) ID Date Data Source [id number] 04/28/2020 09:00:00 AM EST [facility] ([facility]) Name Value Range Interpretation Code Description Data Yessica rce(s) Supporting Document(s) Glucose, Fasting 118 mg/dL 70-100 Above high normal [facility] ([facility]) Creatinine For GFR 1.42 mg/dL 0.70-1.30 Above high normal [facility] ([facility]) Glomerular Filtration Rate 51.6 Normal (applies to n on-numeric results) [facility]) <content>Units are mL/min/1.73 m2</content>
<content></content>
<content>Chronic Kidney Disease Staging per NKF:</content>
<content></content>
<content>Stage I & II GFR >=60 Normal to Mildly Decreased</content>
<content>Stage III GFR 30- 59 Moderately Decreased</content>
<content>Stage IV GFR 15-29 Severely Decreased</content>
<content>Stage V GFR <15 Very Little GFR Left</content>
<content>ESRD GFR <15 on INTERIOR HORTICULTURIST</content>
<content></content> Blood Urea Nitrogen 20 mg/dL 7-18 Above high normal [facility] ([facility]) Sodium Level 145 meq/L 136-145 Normal (applies to non-numeric res ults) [facility] ([facility]) Potassium Serum 4.9 meq/L 3.5-5.1 Normal (applies to non-numeric results) [facility] ([facility]) Anion Gap 3 meq/L 8-16 Below low normal [facility] ( [facility]) Carbon Dioxide Level 29 meq/L 21-32 Normal (applies to non-num linda results) [facility] ([facility]) Chloride Level 113 meq/L 98-107 Above high normal [facility] ([facility]) Ast/Sgot 13 U/L 7-37 Normal (applies to non-numeric resul ts) [facility] ([facility]) Calcium Level 9.9 mg/dL 8.8-10.2 Normal (applies to non-numeric re sults) [facility] ([facility]) Alkaline Phosphatase 95 U/L 45-117 Normal (applies to non-num linda results) [facility] ([facility]) Alt/SGPT 23 U/L 12-78 Normal (applies to non-numeric resul ts) [facility] ([facility]) Bilirubin,Total 0.4 mg/dL 0.2-1.0 Normal (applies to non-numeric results) [facility] ([facility]) Total Protein 7.4 GM/DL 6.4-8.2 Normal (applies to non-numeric re sults) [facility] ([facility]) Albumin 3.6 GM/DL 3.2-5.2 Normal (applies to non-numeric resul ts) [facility] ([facility]) Albumin/Globulin Ratio 0.9 Normal (applies to non-n umeric results) [facility] ([facility]) ID Date Data Source [id number] 04/28/2020 09:00:00 AM EST [facility] ([facility]) Name Value Range Interpretation Code Description Data Yessica rce(s) Supporting Document(s) Estimated Average Glucose 123 mg/dL 60-110 Above high normal [facility] ([facility]) Hemoglobin A1c 5.9 % Normal (applies to non-numeric r esults) [facility] ([facility]) <content>REFERENCE RANGES:</content><br/ ><content></content>
<content><=5.6% NORMAL</content>
<content>5.7-6.4% SUGGESTS IMPAIRED GLUCOSE METABOLISM/PREDIABETIC</content>
<content>>= 6.5% ABNORMAL</content>
<content></content> ID Date Data Source [id number] 04/28/2020 09:00:00 AM EST [facility] ([facility]) Name Value Range Interpretation Code Description Data Yessica rce(s) Supporting Document(s) White Blood Count 6.4 10 4.0-10.0 Normal (applies to non-numeri c results) [facility] ([facility]) Hematocrit 39.8 % 42.0-52.0 Below low normal [facility] ( [facility]) Hemoglobin 13.1 g/dL 13.5-17.5 Below low normal [facility] ( [facility]) Red Blood Count 4.35 10 4.30-6.10 Normal (applies to non-numeric results) [facility]) Mean Corpuscular Volume 91.5 fl 80.0-96.0 Normal ( applies to non-numeric results) [facility] ([facility]) Mean Corpuscular Hemoglobin 30.1 pg 27.0-33.0 Norm al (applies to non-numeric results) [facility]) Mean Corpuscular HGB Conc 32.9 g/dL 32.0-36.5 Normal (applies to non-numeric results) [facility] ([facility]) Platelet Count, Automated 194 10 150-450 Normal (applies to non-numeric results) [facility] ([facility]) Red Cell Distribution Width 13.1 % 11.5-14.5 Norm al (applies to non-numeric results) [facility] ([facility]) Neutrophils % 55.5 % 36.0-66.0 Normal (applies to non-numeric re sults) [facility] ([facility]) Lymph % 32.1 % 24.0-44.0 Normal (applies to non-numeric resul ts) [facility] ([facility]) [place] % 11.7 % 0.0-5.0 Above high normal [facility] ([facility]) Eos % 0.0 % 0.0-3.0 Normal (applies to non-numeric resul ts) [facility] ([facility]) Baso % 0.2 % 0.0-1.0 Normal (applies to non-numeric resul ts) [facility] ([facility]) Nucleated Red Blood Cell % 0.0 % 0-0 Normal (applies to n on-numeric results) [facility] ([facility]) Immature Granulocyte % 0.5 % 0-3.0 Normal (applies to non-n umeric results) [facility]) Neutrophils # 3.5 10 1.5-8.5 Normal (applies to non-numeric re sults) [facility] ([facility]) [place] # 0.7 10 0.0-0.8 Normal (applies to non-numeric resul ts) [facility] ([facility]) Lymph # 2.0 10 1.5-5.0 Normal (applies to non-numeric resul ts) [facility] ([facility]) Eos # 0.0 10 0.0-0.5 Normal (applies to non-numeric resul ts) [facility] ([facility]) Baso # 0.0 10 0.0-0.2 Normal (applies to non-numeric resul ts) [facility] ([facility]) Procedure Social History Code Duration Value Status Description Data Source(s ) Smoking 12/14/2020 12:00:00 AM EDT Former Smoker completed Former Smoker W1 ([facility]) Smoking 12/14/2020 12:00:00 AM EDT Former Smoker completed Former Smoker [facility] ([facility]) Vital Signs ID Date Data Source UNK Name Value Range Interpretation Code Description Data Source(s) Body weight 206.12 [lb_av] 206.12 [lb_av] [facility] ([facility]) Body surface area Derived from formula 1.98 m2 1.98 m2 [facility] ([facility]) Body height 64 [in_i] 64 [in_i] [facility] ([facility]) 5'4" Body mass index (BMI) [Ratio] 35.4 kg/m2 35.4 k g/m2 [facility] ([facility]) Body weight 93.498 kg 93.498 kg [facility] ([facility]) Systolic blood pressure 122 mm[Hg] 122 mm[Hg] [facility] ([facility]) Diastolic blood pressure 84 mm[Hg] 84 mm[Hg] [facility]) Heart rate 61 /min 61 /min [facility] ([facility]) Body temperature 96.8 [degF] 96.8 [degF] [facility] ([facility]) Respiratory rate 16 /min 16 /min [facility] ( [facility]) Oxygen saturation in Arterial blood by Pulse oximetry 95 % 95 % [facility] ([facility]) Body temperature 96.9 [degF] 96.9 [degF] [...] Body weight 205 [lb_av] 205 [lb_av] eCW1 ([facility]) Body weight 92.99 kg 92.99 kg W1 ([facility]) Body height 65 [in_i] 65 [in_i] eCW1 ([facility]) Body mass index (BMI) [Ratio] 34.11 kg/m2 34.11 kg/m2 eCW1 ([facility]) Heart rate 70 /min 70 /min eCW1 ([facility]) Respiratory rate 18 /min 18 /min eCW1 ([facility]) Body temperature 98.8 [degF] 98.8 [degF] eCW1 ( [facility]) Systolic blood pressure 145 mm[Hg] 145 mm[Hg] e CW1 ([facility]) Diastolic blood pressure 66 mm[Hg] 66 mm[Hg] eCW1 ([facility]) Systolic blood pressure 118 mm[Hg] 118 mm[Hg] [facility] ([facility]) Body weight 91.400 kg 91.400 kg [facility] ([facility]) Body height 64 [in_i] 64 [in_i] [facility] ([facility]) 5'4" Body mass index (BMI) [Ratio] 34.6 kg/m2 34.6 k g/m2 [facility] ([facility]) Body surface area Derived from formula 1.96 m2 1.96 m2 [facility] ([facility]) Diastolic blood pressure 70 mm[Hg] 70 mm[Hg] [facility] ([facility]) Heart rate 72 /min 72 /min [facility] ([facility]) Body temperature 96.4 [degF] 96.4 [degF] [facility] ([facility]) Respiratory rate 20 /min 20 /min [facility] ( [facility]) Oxygen saturation in Arterial blood by Pulse oximetry 97 % 97 % [facility]) Body weight 201.50 [lb_av] 201.50 [lb_av] [facility] ([facility]) Systolic blood pressure 128 mm[Hg] 128 mm[Hg] [facility] ([facility]) Diastolic blood pressure 78 mm[Hg] 78 mm[Hg] [facility] ([facility]) Heart rate 82 /min 82 /min [facility] ([facility]) Body temperature 96.8 [degF] 96.8 [degF] [facility] ([facility]) Respiratory rate 18 /min 18 /min [facility] ( [facility]) Oxygen saturation in Arterial blood by Pulse oximetry 97 % 97 % [facility] Body weight 201.00 [lb_av] 201.00 [lb_av] [facility] T ([facility]) Body weight 91.174 kg 91.174 kg [facility] ([facility]) Body height 64 [in_i] 64 [in_i] [facility] 5'4" Body mass index (BMI) [Ratio] 34.5 kg/m2 34.5 k g/m2 [facility] ([facility]) Body surface area Derived from formula 1.96 m2 1.96 m2 [facility] ([facility]) Oxygen saturation in Arterial blood by Pulse oximetry 97 % 97 % [facility] Respiratory rate 18 /min 18 /min [facility] ( [facility]) Body weight 205.38 [lb_av] 205.38 [lb_av] [facility] T ([facility]) Body surface area Derived from formula 1.98 m2 1.98 m2 [facility] ([facility]) Body height 64 [in_i] 64 [in_i] [facility] 5'4" Systolic blood pressure 128 mm[Hg] 128 mm[Hg] M [facility] ([facility]) Diastolic blood pressure 80 mm[Hg] 80 mm[Hg] [facility] ([facility]) Heart rate 68 /min 68 /min [facility] ([facility]) Body temperature 96.8 [degF] 96.8 [degF] [facility] Body weight 93.158 kg 93.158 kg [facility] ([facility]) Body mass index (BMI) [Ratio] 35.2 kg/m2 35.2 k g/m2 [facility] ([facility]) Systolic blood pressure 118 mm[Hg] 118 mm[Hg] M [facility] ([facility]) Body weight 90.323 kg 90.323 kg [facility] ([facility]) Body height 64 [in_i] 64 [in_i] [facility] ([facility]) 5'4" Diastolic blood pressure 78 mm[Hg] 78 mm[Hg] [facility] ([facility]) Heart rate 68 /min 68 /min [facility] ([facility]) Body temperature 97.4 [degF] 97.4 [degF] [facility] ([facility]) Respiratory rate 18 /min 18 /min [facility] ( [facility]) Oxygen saturation in Arterial blood by Pulse oximetry 98 % 98 % [facility] ([facility]) Body weight 199.12 [lb_av] 199.12 [lb_av] [facility] T ([facility]) Body mass index (BMI) [Ratio] 34.2 kg/m2 34.2 k g/m2 [facility] Body surface area Derived from formula 1.95 m2 1.95 m2 [facility] ([facility])
[2021-03-21 13:45] LABS: EOS # 0.1 10^3/uL (0.0-0.5); EOS % 1.3 % (0.0-3.0); HEMATOCRIT 34.5 % (42.0-52.0); HEMOGLOBIN 11.8 g/dl (13.5-17.5); LYMPH # 1.5 10^3/uL (1.5-5.0); MEAN CORPUSCULAR HEMOGLOBIN 31.1 pg (27.0-33.0); MEAN CORPUSCULAR HGB CONC 34.2 g/dl (32.0-36.5); MEAN CORPUSCULAR VOLUME 90.8 fl (80.0-96.0); MONO # 0.6 10^3/uL (0.0-0.8); MONO % 10.3 % (2.0-8.0); NEUTROPHILS # 3.9 10^3/uL (1.5-8.5); NEUTROPHILS % 64.1 % (36.0-66.0); PLATELET COUNT, AUTOMATED 142 10^3/uL (150-450)
[2021-03-21 14:04] LABS: CALCIUM LEVEL 9.5 MG/DL (8.8-10.2); CREATININE FOR GFR 1.42 MG/DL (0.70-1.30); GLOMERULAR FILTRATION RATE 51.6 (>42); POTASSIUM SERUM 4.2 MEQ/L (3.5-5.1)
[2021-03-21] MEDS ORDERED: NS 1,000 ML IV ONE (14:05)
[2021-03-21 14:08] LABS: CK-MB VALUE MASS < 1.0 NG/ML (<3.6); CPK CREATINE PHOSPHOKINASE 101 U/L (39-308); MB/CK RELATIVE INDEX 0.99 (< OR =4); TROPONIN I < 0.02 NG/ML (< 0.10)
--- NOTE | 2021-03-21 14:37 | REP ---
INDICATION: b/l calf pain, r/o DVT. COMPARISON: None TECHNIQUE: Multiple ultrasonographic images of the deep venous structures of the bilateral lower extremity were obtained from the inguinal ligament to the ankle. Venous compression techniques, color doppler imaging, and augmentation techniques were also obtained where appropriate. As per the ACR guidelines the anterior tibial vein can not be effectively evaluated. Only compression techniques in the calf on the peroneal and posterior tibial veins was attempted/performed. FINDINGS: There is no abnormal echogenic material seen within any of the visualized deep venous structures that would suggest acute thrombosis. Coaptation is unremarkable throughout. Doppler interrogation shows an expected response to respiratory variability and augmentation in the thigh. Compression techniques in the calf were unobtainable. The color flow images show what appears to be a normal vascular pattern throughout the thigh. IMPRESSION: There is no ultrasonographic evidence of deep venous thrombosis involving any of the visualized deep venous structures of the bilateral lower extremity as described above. Due to technical parameters calf vein DVT can not be ruled out. <Electronically signed by Guanaco Steiner > 03/21/21 [id number]
[2021-03-21 14:57] LABS: APPEARANCE, URINE CLEAR (CLEAR); BACTERIA, URINE AUTO NEGATIVE (NEGATIVE); BILIRUBIN, URINE AUTO NEGATIVE (NEGATIVE); BLOOD, URINE BLOOD NEGATIVE (NEGATIVE); COLOR, URINE YELLOW (YELLOW); GLUCOSE, URINE (UA) AUTO NEGATIVE (NEGATIVE); KETONE, URINE AUTO NEGATIVE (NEGATIVE); LEUKOCYTE ESTERASE, URINE AUTO NEGATIVE (NEGATIVE); NITRITE, URINE AUTO NEGATIVE (NEGATIVE); PROTEIN, URINE AUTO NEGATIVE (NEGATIVE); RBC, URINE AUTO 0 /HPF (0-3); SPECIFIC GRAVITY URINE AUTO 1.006 (1.002-1.035); SQUAMOUS EPITHELIAL CELL UR AU 0 /HPF (0-6); UROBILINOGEN, URINE AUTO 0.2 mg/dL (0.0-2.0); WBC, URINE AUTO 0 /HPF (0-3)
[2021-03-21 15:23] VITALS: BP 117/62
--- NOTE | 2021-03-21 18:38 | ECGEPIP ---
[facility] - ED Test Date: 2021-03-21 Pat Name: SHERYL READ Department: Room: - Gender: Male Oracle Dba: [id number] : 1945 Requested By: YOHAN Pfeiffer PA-C Order Number: [id number] Reading MD: Steven Oh Measurements Intervals [place] Rate: 50 P: 65 MN: 196 QRS: -20 QRSD: 118 T: -10 QT: 466 QTc: 424 Interpretive Statements Sinus bradycardia MODERATE INTRAVENTRICULAR CONDUCTION DELAY Electronically Signed on 03-21-2021 18:38:01 EST by Steven Oh
== END 2021-03-21 15:35 | disposition home or self-care (01) ==
LOC: M ED 11:05
DX: I95.1 Orthostatic hypotension (principal); R00.1 Bradycardia, unspecified; I83.813 Varicose veins of bilateral lower extremities with pain; E11.9 Type 2 diabetes mellitus without complications; I10 Essential (primary) hypertension; E78.5 Hyperlipidemia, unspecified; J45.909 Unspecified asthma, uncomplicated; J44.9 Chronic obstructive pulmonary disease, unspecified; H40.9 Unspecified glaucoma; M51.9 Unspecified thoracic, thoracolumbar and lumbosacral intervertebral disc disorder; G47.33 Obstructive sleep apnea (adult) (pediatric); N40.0 Benign prostatic hyperplasia without lower urinary tract symptoms; N18.30 Chronic kidney disease, stage 3 unspecified; K21.9 Gastro-esophageal reflux disease without esophagitis; K44.9 Diaphragmatic hernia without obstruction or gangrene; Z79.899 Other long term (current) drug therapy; Z88.2 Allergy status to sulfonamides; Z88.0 Allergy status to penicillin; Z88.8 Allergy status to other drugs, medicaments and biological substances

== ENCOUNTER → 2021-04-12 | Outpatient (CLI) | payer OTHER, MEDICAID ==
--- NOTE | 2021-04-12 14:59 | REP ---
INDICATION: RASHAWN PERSISTENT CALF PAIN-LABS FIRST COMPARISON: None. TECHNIQUE: Chavarria scale and color Doppler evaluation using linear high frequency transducer. FINDINGS: Ultrasound examination of the right and left lower extremity deep venous structures from the common femoral vein through the popliteal vein demonstrates normal compressibility, flow and wave patterns in response to respiration and augmentation. Evaluation of the calf veins could not be performed due to technical factors. There is no evidence for deep venous thrombosis. IMPRESSION: No evidence for deep venous thrombosis from the bilateral common femoral through popliteal veins. <Electronically signed by Tyshawn Wright > 04/12/21 [id number]
== END ==
LOC: M RAD 13:32
PROVIDERS: ATTEND Nurse Practitioner Family
DX: M79.661 Pain in right lower leg (principal); M79.662 Pain in left lower leg

== ENCOUNTER → 2021-08-04 | Outpatient (REF) | payer OTHER, MEDICAID ==
[~2021-08-04] MED LIST changes: +LOSA100T45 PO; -LOSA100T50 PO; -MONT10TA10 PO; +MONT10TA97 PO
[2021-08-04 17:53] LABS: TOTAL PROTEIN 7.3 GM/DL (6.4-8.2)
[2021-08-05 13:25] LABS: ALBUMIN % 57.6 % (55.8-66.1); ALPHA-1-GLOBULIN % 3.5 % (2.9-4.9); ALPHA-1-GLOBULINS 0.26 GM/DL (0.17-0.41); BETA-1-GLOBULINS 0.42 GM/DL (0.28-0.60); BETA-1-GLOBULINS % 5.8 % (4.7-7.2); BETA-2-GLOBULINS 0.43 GM/DL (0.19-0.55); BETA-2-GLOBULINS % 5.9 % (3.2-6.5); GAMMA GLOBULIN % 16.2 % (11.1-18.8); GAMMA GLOBULINS 1.18 GM/DL (0.65-1.58)
== END ==
LOC: M LAB REF 16:39
PROVIDERS: ATTEND Internal Medicine Nephrology
DX: N18.31 Chronic kidney disease, stage 3a (principal)

== ENCOUNTER → 2021-08-04 | Outpatient (REF) | payer OTHER, MEDICAID ==
[2021-08-04 17:21] LABS: EOS # 0.1 10^3/uL (0.0-0.5); EOS % 1.6 % (0.0-3.0); HEMATOCRIT 37.9 % (42.0-52.0); HEMOGLOBIN 12.8 g/dl (13.5-17.5); LYMPH % 32.5 % (24.0-44.0); MEAN CORPUSCULAR HEMOGLOBIN 31.2 pg (27.0-33.0); MEAN CORPUSCULAR HGB CONC 33.8 g/dl (32.0-36.5); MEAN CORPUSCULAR VOLUME 92.4 fl (80.0-96.0); MONO # 0.6 10^3/uL (0.0-0.8); MONO % 10.2 % (2.0-8.0); NEUTROPHILS # 3.4 10^3/uL (1.5-8.5); NEUTROPHILS % 55.4 % (36.0-66.0); PLATELET COUNT, AUTOMATED 167 10^3/uL (150-450); WHITE BLOOD COUNT 6.2 10^3/uL (4.0-10.0)
[2021-08-04 18:02] LABS: ALBUMIN 3.4 GM/DL (3.2-5.2); BILIRUBIN,TOTAL 0.9 MG/DL (0.2-1.0); CALCIUM LEVEL 9.9 MG/DL (8.8-10.2); CHOLESTEROL RISK RATIO 2.98 (<5); CREATININE FOR GFR 1.35 MG/DL (0.70-1.30); GLOMERULAR FILTRATION RATE 54.6 (>42); POTASSIUM SERUM 4.5 MEQ/L (3.5-5.1); THYROID STIMULATING HORMONE 1.36 uIU/ML (0.358-3.740); TOTAL PROTEIN 7.3 GM/DL (6.4-8.2)
== END ==
LOC: M LAB REF 16:40
PROVIDERS: ATTEND Nurse Practitioner Family
DX: Z00.01 Encounter for general adult medical examination with abnormal findings (principal); I10 Essential (primary) hypertension; E78.2 Mixed hyperlipidemia; Z13.29 Encounter for screening for other suspected endocrine disorder; R73.03 Prediabetes; N18.31 Chronic kidney disease, stage 3a

== ENCOUNTER → 2021-09-19 | Outpatient (CLI) | payer OTHER, MEDICAID | LOC: M RAD 13:13 | PROVIDERS: ATTEND Nurse Practitioner Family | DX: R51.9 Headache, unspecified (principal) ==

== ENCOUNTER → 2021-09-19 | Outpatient (CLI) | payer OTHER, MEDICAID | LOC: M CARPUL 13:14 | PROVIDERS: ATTEND Student in an Organized Health Care Education/Training Program | DX: R55 Syncope and collapse (principal) ==

== ENCOUNTER 2021-10-14 09:47 | Emergency (ER) | payer OTHER, MEDICAID ==
[~2021-10-14] VITALS: Ht 162.6 cm; Wt 97.4 kg
[~2021-10-14 09:47] MED LIST changes: -CLEO300C2 PO
[2021-10-14] MEDS ORDERED: CLINDAMYCIN 600 MG in IV 1 EA IV ONE (10:15)
[2021-10-14 11:01] LABS: EOS # 0.5 10^3/uL (0.0-0.5); EOS % 7.4 % (0.0-3.0); HEMOGLOBIN 11.7 g/dl (13.5-17.5); LYMPH # 1.6 10^3/uL (1.5-5.0); LYMPH % 26.5 % (24.0-44.0); MEAN CORPUSCULAR HGB CONC 33.4 g/dl (32.0-36.5); MEAN CORPUSCULAR VOLUME 92.6 fl (80.0-96.0); MONO # 0.7 10^3/uL (0.0-0.8); MONO % 10.7 % (2.0-8.0); NEUTROPHILS # 3.3 10^3/uL (1.5-8.5); NEUTROPHILS % 54.9 % (36.0-66.0); PLATELET COUNT, AUTOMATED 168 10^3/uL (150-450); RED BLOOD COUNT 3.78 10^6/uL (4.30-6.10); WHITE BLOOD COUNT 6.1 10^3/uL (4.0-10.0)
[2021-10-14 11:32] LABS: ERYTHROCYTE SEDIMENTATION RATE 27 mm/hr (0-20)
[2021-10-14 11:42] LABS: C REACTIVE PROTEIN QUANTITATIV 0.72 MG/DL (0.00-0.30); CREATININE FOR GFR 1.27 MG/DL (0.70-1.30); GLOMERULAR FILTRATION RATE 58.5 (>42); POTASSIUM SERUM 4.1 MEQ/L (3.5-5.1)
[2021-10-14] MEDS ORDERED: CLEO300C2 PO (12:04)
[2021-10-14 12:16] VITALS: BP 147/82
== END 2021-10-14 12:21 | disposition home or self-care (01) ==
LOC: M ED 09:47
DX: L97.319 Non-pressure chronic ulcer of right ankle with unspecified severity (principal); L03.115 Cellulitis of right lower limb; R51.9 Headache, unspecified; Z79.51 Long term (current) use of inhaled steroids; Z79.899 Other long term (current) drug therapy; Z88.0 Allergy status to penicillin; Z88.1 Allergy status to other antibiotic agents; Z88.2 Allergy status to sulfonamides; Z88.6 Allergy status to analgesic agent

== ENCOUNTER → 2021-10-14 | Outpatient (CLI) | payer OTHER, MEDICAID ==
[~2021-10-14] MED LIST changes: +CLEO300C2 PO
== END ==
LOC: M RAD 08:32
PROVIDERS: ATTEND Nurse Practitioner Family
DX: R51.9 Headache, unspecified (principal)

== ENCOUNTER → 2021-11-02 | Outpatient (CLI) | payer OTHER, MEDICAID ==
[~2021-11-02] MED LIST changes: +CLEO300C2 PO
[2021-11-02 09:20] LABS: BASO % 0.2 % (0.0-1.0); EOS # 0.3 10^3/uL (0.0-0.5); EOS % 5.7 % (0.0-3.0); HEMATOCRIT 38.7 % (42.0-52.0); HEMOGLOBIN 12.8 g/dl (13.5-17.5); LYMPH # 1.9 10^3/uL (1.5-5.0); LYMPH % 32.5 % (24.0-44.0); MEAN CORPUSCULAR HEMOGLOBIN 30.5 pg (27.0-33.0); MEAN CORPUSCULAR HGB CONC 33.1 g/dl (32.0-36.5); MEAN CORPUSCULAR VOLUME 92.4 fl (80.0-96.0); MONO # 0.7 10^3/uL (0.0-0.8); NEUTROPHILS % 50.3 % (36.0-66.0); PLATELET COUNT, AUTOMATED 168 10^3/uL (150-450); RED BLOOD COUNT 4.19 10^6/uL (4.30-6.10); WHITE BLOOD COUNT 5.9 10^3/uL (4.0-10.0)
[2021-11-02 09:38] LABS: HEMOGLOBIN A1c 6.2 %
[2021-11-02 10:02] LABS: ALBUMIN 3.3 GM/DL (3.2-5.2); BILIRUBIN,TOTAL 0.5 MG/DL (0.2-1.0); CALCIUM LEVEL 9.6 MG/DL (8.8-10.2); CHOLESTEROL RISK RATIO 3.227 (<5); CREATININE FOR GFR 1.35 MG/DL (0.70-1.30); GLOMERULAR FILTRATION RATE 54.6 (>42); POTASSIUM SERUM 4.6 MEQ/L (3.5-5.1); THYROID STIMULATING HORMONE 1.97 uIU/ML (0.358-3.740); TOTAL PROTEIN 7.4 GM/DL (6.4-8.2)
== END ==
LOC: M LAB 08:51
PROVIDERS: ATTEND Nurse Practitioner Family
DX: Z12.5 Encounter for screening for malignant neoplasm of prostate (principal); E78.2 Mixed hyperlipidemia; I10 Essential (primary) hypertension; Z13.29 Encounter for screening for other suspected endocrine disorder; R73.03 Prediabetes
CPT/HCPCS: 36415; 80053; 80061; 83036; 84443; 85025; G0103

== ENCOUNTER → 2022-02-03 | Outpatient (REF) | payer OTHER, MEDICAID ==
[~2022-02-03] MED LIST changes: +FISH10005 PO; -FISH7.5C PO
[2022-02-03 18:21] LABS: HEMOGLOBIN A1c 5.8 %
[2022-02-03 18:40] LABS: ALBUMIN 3.6 GM/DL (3.2-5.2); BILIRUBIN,TOTAL 0.6 MG/DL (0.2-1.0); CALCIUM LEVEL 9.9 MG/DL (8.8-10.2); CHOLESTEROL RISK RATIO 2.714 (<5); CREATININE FOR GFR 1.25 MG/DL (0.70-1.30); GLOMERULAR FILTRATION RATE 59.6 (>42); POTASSIUM SERUM 4.8 MEQ/L (3.5-5.1); THYROID STIMULATING HORMONE 1.58 uIU/ML (0.358-3.740); TOTAL PROTEIN 7.5 GM/DL (6.4-8.2)
[2022-02-10 14:57] LABS: BASO % 0.3 % (0.0-1.0); EOS # 0.2 10^3/uL (0.0-0.5); EOS % 5.6 % (0.0-3.0); HEMATOCRIT 39.9 % (42.0-52.0); HEMOGLOBIN 12.9 g/dl (13.5-17.5); LYMPH # 1.9 10^3/uL (1.5-5.0); LYMPH % 47.8 % (24.0-44.0); MEAN CORPUSCULAR HEMOGLOBIN 31.8 pg (27.0-33.0); MEAN CORPUSCULAR HGB CONC 32.3 g/dl (32.0-36.5); MEAN CORPUSCULAR VOLUME 98.3 fl (80.0-96.0); MONO # 0.6 10^3/uL (0.0-0.8); MONO % 15.1 % (2.0-8.0); NEUTROPHILS # 1.1 10^3/uL (1.5-8.5); NEUTROPHILS % 29.2 % (36.0-66.0); PLATELET COUNT, AUTOMATED 164 10^3/uL (150-450); RED BLOOD COUNT 4.06 10^6/uL (4.30-6.10); WHITE BLOOD COUNT 3.9 10^3/uL (4.0-10.0)
[2022-02-10 15:22] LABS: TOTAL 25(OH) VITAMIN D 21.5 NG/ML (30.0-100.0)
== END ==
LOC: M LAB REF 16:39
PROVIDERS: ATTEND Nurse Practitioner Family
DX: Z00.01 Encounter for general adult medical examination with abnormal findings (principal); R73.03 Prediabetes; N18.31 Chronic kidney disease, stage 3a; E78.2 Mixed hyperlipidemia

== ENCOUNTER → 2022-02-16 | Outpatient (CLI) | payer OTHER, MEDICAID | LOC: M RAD 09:21 | PROVIDERS: ATTEND Physician Assistant | DX: L97.312 Non-pressure chronic ulcer of right ankle with fat layer exposed (principal) ==

== ENCOUNTER → 2022-05-04 | Outpatient (CLI) | payer OTHER, MEDICAID ==
[2022-05-04 09:22] LABS: EOS # 0.3 10^3/uL (0.0-0.5); EOS % 4.4 % (0.0-3.0); HEMATOCRIT 37.5 % (42.0-52.0); HEMOGLOBIN 12.5 g/dl (13.5-17.5); LYMPH # 2.3 10^3/uL (1.5-5.0); LYMPH % 36.9 % (24.0-44.0); MEAN CORPUSCULAR HEMOGLOBIN 31.4 pg (27.0-33.0); MEAN CORPUSCULAR HGB CONC 33.3 g/dl (32.0-36.5); MEAN CORPUSCULAR VOLUME 94.2 fl (80.0-96.0); MONO # 0.6 10^3/uL (0.0-0.8); MONO % 10.1 % (2.0-8.0); NEUTROPHILS # 3.1 10^3/uL (1.5-8.5); NEUTROPHILS % 48.1 % (36.0-66.0); PLATELET COUNT, AUTOMATED 162 10^3/uL (150-450); RED BLOOD COUNT 3.98 10^6/uL (4.30-6.10); WHITE BLOOD COUNT 6.3 10^3/uL (4.0-10.0)
[2022-05-04 09:49] LABS: ALBUMIN 3.2 G/DL (3.2-5.2); ALKALINE PHOSPHATASE 62 U/L (46-116); ALT/SGPT 20 U/L (7.0-40); AST/SGOT 21 U/L (<34); BILIRUBIN,TOTAL 0.8 MG/DL (0.3-1.2); BLOOD UREA NITROGEN 20 MG/DL (9-23); CALCIUM LEVEL 9.7 MG/DL (8.3-10.6); CARBON DIOXIDE LEVEL 26 MMOL/L (20-31); CHLORIDE LEVEL 109 MMOL/L (98-107); CHOLESTEROL LEVEL 131 MG/DL (<200); CHOLESTEROL RISK RATIO 2.72 (<5); CREATININE FOR GFR 1.12 MG/DL (0.70-1.30); GLOMERULAR FILTRATION RATE > 60.0 (>42); GLUCOSE, FASTING 105 MG/DL (74-106); LDL CHOLESTEROL 57.8 MG/DL (<100); NON-HDL-C 83 MG/DL; POTASSIUM SERUM 4.3 MMOL/L (3.5-5.1); SODIUM LEVEL 142 MMOL/L (136-145); TOTAL PROTEIN 6.9 G/DL (5.7-8.2); TRIGLYCERIDES LEVEL 126 MG/DL (<150)
[2022-05-04 09:51] LABS: THYROID STIMULATING HORMONE 1.496 uIU/ML (0.55-4.78)
[2022-05-04 10:18] LABS: HEMOGLOBIN A1c 5.7 % (4.0-6.0)
== END ==
LOC: M LAB 08:37
PROVIDERS: ATTEND Nurse Practitioner Family
DX: D64.9 Anemia, unspecified (principal)

== ENCOUNTER 2022-07-05 13:41 | Emergency (ER) | payer OTHER, MEDICAID ==
[~2022-07-05] VITALS: Ht 162.6 cm; Wt 94.5 kg
[2022-07-05] MEDS ORDERED: FAMO20TA5 (14:24)
[2022-07-05] MEDS ORDERED: OMEG1CAP85 (14:24)
[2022-07-05] MEDS ORDERED: METF-838 (14:24)
[2022-07-05 14:52] LABS: EOS # 0.2 10^3/uL (0.0-0.5); EOS % 2.5 % (0.0-3.0); HEMATOCRIT 36.6 % (42.0-52.0); HEMOGLOBIN 12.3 g/dl (13.5-17.5); LYMPH # 1.8 10^3/uL (1.5-5.0); LYMPH % 27.8 % (24.0-44.0); MEAN CORPUSCULAR HEMOGLOBIN 31.6 pg (27.0-33.0); MEAN CORPUSCULAR HGB CONC 33.6 g/dl (32.0-36.5); MEAN CORPUSCULAR VOLUME 94.1 fl (80.0-96.0); MONO # 0.6 10^3/uL (0.0-0.8); MONO % 8.5 % (2.0-8.0); NEUTROPHILS # 3.9 10^3/uL (1.5-8.5); NEUTROPHILS % 60.7 % (36.0-66.0); PLATELET COUNT, AUTOMATED 151 10^3/uL (150-450); RED BLOOD COUNT 3.89 10^6/uL (4.30-6.10); WHITE BLOOD COUNT 6.4 10^3/uL (4.0-10.0)
[2022-07-05 15:22] LABS: C REACTIVE PROTEIN QUANTITATIV < 0.40 MG/DL (<1.0)
[2022-07-05 15:23] LABS: BLOOD UREA NITROGEN 23 MG/DL (9-23); CALCIUM LEVEL 9.6 MG/DL (8.3-10.6); CARBON DIOXIDE LEVEL 22 MMOL/L (20-31); CHLORIDE LEVEL 114 MMOL/L (98-107); CREATININE FOR GFR 1.25 MG/DL (0.70-1.30); GLOMERULAR FILTRATION RATE 59.5 (>42); GLUCOSE, FASTING 95 MG/DL (74-106); POTASSIUM SERUM 4.2 MMOL/L (3.5-5.1); SODIUM LEVEL 147 MMOL/L (136-145)
[2022-07-05 15:34] LABS: ERYTHROCYTE SEDIMENTATION RATE 9 mm/hr (0-20)
[2022-07-05 16:07] VITALS: BP 165/83
== END 2022-07-05 16:20 | disposition home or self-care (01) ==
LOC: M ED 13:41 → EDBD 13:41 → M ED 16:20
DX: L97.319 Non-pressure chronic ulcer of right ankle with unspecified severity (principal); I10 Essential (primary) hypertension; J45.909 Unspecified asthma, uncomplicated; K21.9 Gastro-esophageal reflux disease without esophagitis; H40.9 Unspecified glaucoma; Z87.891 Personal history of nicotine dependence; Z88.0 Allergy status to penicillin; Z88.2 Allergy status to sulfonamides; Z88.6 Allergy status to analgesic agent; Z79.51 Long term (current) use of inhaled steroids; Z79.899 Other long term (current) drug therapy; Z79.84 Long term (current) use of oral hypoglycemic drugs

== ENCOUNTER → 2022-08-28 | Outpatient (CLI) | payer OTHER, MEDICAID ==
[~2022-08-28] MED LIST changes: +FAMO20TA5; +METF-838; +OMEG1CAP85
== END ==
LOC: M RAD 12:10
PROVIDERS: ATTEND Physician Assistant
DX: L97.312 Non-pressure chronic ulcer of right ankle with fat layer exposed (principal)

== ENCOUNTER → 2022-08-30 | Outpatient (CLI) | payer OTHER, MEDICAID ==
[~2022-08-30] MED LIST changes: +GASTROGRAFIN SOLUTION 30ML As Ordered ONE; +ISOVUE-370 76% 100ML VIAL As Ordered ONE
== END ==
LOC: M RAD 13:57
PROVIDERS: ATTEND Internal Medicine Nephrology
DX: K40.30 Unilateral inguinal hernia, with obstruction, without gangrene, not specified as recurrent (principal); K57.30 Diverticulosis of large intestine without perforation or abscess without bleeding; R59.0 Localized enlarged lymph nodes; K80.20 Calculus of gallbladder without cholecystitis without obstruction; I70.0 Atherosclerosis of aorta; M48.061 Spinal stenosis, lumbar region without neurogenic claudication
CPT/HCPCS: 74177; Q9963; Q9967

== ENCOUNTER → 2023-03-08 | Outpatient (CLI) | payer OTHER, MEDICAID ==
[~2023-03-08] MED LIST changes: -GASTROGRAFIN SOLUTION 30ML As Ordered ONE; -ISOVUE-370 76% 100ML VIAL As Ordered ONE; -LOSA100T45 PO; +LOSA100T46 PO
== END ==
LOC: M RAD 09:59
PROVIDERS: ATTEND Surgery
DX: R10.814 Left lower quadrant abdominal tenderness (principal)

== ENCOUNTER 2023-04-26 11:17 | Emergency (ER) | payer OTHER, MEDICAID ==
[~2023-04-26] VITALS: Ht 162.6 cm; Wt 93.3 kg
[~2023-04-26 11:17] MED LIST changes: +ACET-683 PO; -FAMO20TA5; +FAMO20TA5 PO; -METF-838; +METF-838 PO; +MM S100C PO; -OMEG1CAP85; +OMEG1CAP85 PO; +SYST0.4D2 OU; +VITA100093 PO; +XALA0.007 OU
[2023-04-26] MEDS ORDERED: ELIM5CRE2 TOP (13:15)
[2023-04-26] MEDS ORDERED: DOXY-444 PO (13:15)
[2023-04-26 13:42] VITALS: BP 158/77; TEMP 96.5; O2SAT 98
== END 2023-04-26 13:42 | disposition home or self-care (01) ==
LOC: M ED 11:17
DX: B86 Scabies (principal); L03.116 Cellulitis of left lower limb; E11.9 Type 2 diabetes mellitus without complications; I10 Essential (primary) hypertension; E78.5 Hyperlipidemia, unspecified; J45.909 Unspecified asthma, uncomplicated; K21.9 Gastro-esophageal reflux disease without esophagitis; K44.9 Diaphragmatic hernia without obstruction or gangrene; Z79.84 Long term (current) use of oral hypoglycemic drugs; Z79.899 Other long term (current) drug therapy; Z88.2 Allergy status to sulfonamides; Z88.0 Allergy status to penicillin; Z88.8 Allergy status to other drugs, medicaments and biological substances

== ENCOUNTER 2023-06-08 13:53 | Emergency (ER) | payer OTHER, MEDICAID ==
[~2023-06-08 13:53] MED LIST changes: +DOXY-444 PO; +ELIM5CRE2 TOP
[2023-06-08 14:41] LABS: BASO % 0.2 % (0.0-1.0); EOS # 0.1 10^3/uL (0.0-0.5); EOS % 1.4 % (0.0-3.0); HEMATOCRIT 37.5 % (42.0-52.0); HEMOGLOBIN 12.5 g/dl (13.5-17.5); LYMPH # 1.4 10^3/uL (1.5-5.0); LYMPH % 21.8 % (24.0-44.0); MEAN CORPUSCULAR HEMOGLOBIN 31.4 pg (27.0-33.0); MEAN CORPUSCULAR HGB CONC 33.3 g/dl (32.0-36.5); MEAN CORPUSCULAR VOLUME 94.2 fl (80.0-96.0); MONO # 0.7 10^3/uL (0.0-0.8); MONO % 10.8 % (2.0-8.0); NEUTROPHILS # 4.2 10^3/uL (1.5-8.5); NEUTROPHILS % 65.3 % (36.0-66.0); PLATELET COUNT, AUTOMATED 163 10^3/uL (150-450); RED BLOOD COUNT 3.98 10^6/uL (4.30-6.10); WHITE BLOOD COUNT 6.4 10^3/uL (4.0-10.0)
[2023-06-08 15:07] LABS: CALCIUM LEVEL 9.3 MG/DL (8.3-10.6); CREATININE FOR GFR 1.52 MG/DL (0.70-1.30); GLOMERULAR FILTRATION RATE 47.3 (>42); POTASSIUM SERUM 4.2 MMOL/L (3.5-5.1)
[2023-06-08] MEDS ORDERED: NS 1,000 ML IV ONE (15:20)
[2023-06-08 16:34] VITALS: O2SAT 100
[2023-06-08 16:38] VITALS: BP 162/95; TEMP 97.1
== END 2023-06-08 17:00 | disposition home or self-care (01) ==
LOC: M ED 13:53 → EDBD 13:53 → M ED 17:00
DX: E86.0 Dehydration (principal); I10 Essential (primary) hypertension; K57.90 Diverticulosis of intestine, part unspecified, without perforation or abscess without bleeding; N18.30 Chronic kidney disease, stage 3 unspecified; J45.909 Unspecified asthma, uncomplicated; Z87.891 Personal history of nicotine dependence; Z79.899 Other long term (current) drug therapy; Z88.2 Allergy status to sulfonamides; Z88.0 Allergy status to penicillin; Z88.8 Allergy status to other drugs, medicaments and biological substances

== ENCOUNTER → 2023-06-09 | Outpatient (REF) | payer OTHER, MEDICAID | LOC: M LAB REF 16:52 | PROVIDERS: ATTEND Emergency Medicine | DX: R19.7 Diarrhea, unspecified (principal) ==

== ENCOUNTER → 2023-06-22 | Outpatient (CLI) | payer OTHER, MEDICAID ==
[2023-06-22 09:47] LABS: FOLATE > 24.0 NG/ML (>5.4)
[2023-06-22 09:48] LABS: VITAMIN B12 LEVEL 648 PG/ML (211-911)
== END ==
LOC: M LAB 08:27
PROVIDERS: ATTEND Physician Assistant
DX: E11.69 Type 2 diabetes mellitus with other specified complication (principal)

== ENCOUNTER → 2023-08-07 | Outpatient (REF) | payer OTHER, MEDICAID ==
[2023-08-07 18:38] LABS: EOS # 0.3 10^3/uL (0.0-0.5); EOS % 4.6 % (0.0-3.0); HEMATOCRIT 36.3 % (42.0-52.0); HEMOGLOBIN 12.1 g/dl (13.5-17.5); LYMPH # 2.1 10^3/uL (1.5-5.0); LYMPH % 32.9 % (24.0-44.0); MEAN CORPUSCULAR HEMOGLOBIN 32.1 pg (27.0-33.0); MEAN CORPUSCULAR HGB CONC 33.3 g/dl (32.0-36.5); MEAN CORPUSCULAR VOLUME 96.3 fl (80.0-96.0); MONO # 0.6 10^3/uL (0.0-0.8); MONO % 9.4 % (2.0-8.0); NEUTROPHILS # 3.3 10^3/uL (1.5-8.5); NEUTROPHILS % 52.6 % (36.0-66.0); PLATELET COUNT, AUTOMATED 188 10^3/uL (150-450); RED BLOOD COUNT 3.77 10^6/uL (4.30-6.10); WHITE BLOOD COUNT 6.3 10^3/uL (4.0-10.0)
[2023-08-07 18:56] LABS: IRON (FE) 63 UG/DL (65-175); PERCENT SATURATION 20.5 % (19.7-50.0); TOTAL IRON BINDING CAPACITY 308 UG/DL (250-425)
[2023-08-07 18:57] LABS: ALBUMIN 3.7 G/DL (3.2-5.2); ALKALINE PHOSPHATASE 63 U/L (46-116); ALT/SGPT 15 U/L (7.0-40); AST/SGOT 16 U/L (<34); BILIRUBIN,TOTAL 0.6 MG/DL (0.3-1.2); BLOOD UREA NITROGEN 26 MG/DL (9-23); CALCIUM LEVEL 10.1 MG/DL (8.3-10.6); CARBON DIOXIDE LEVEL 25 MMOL/L (20-31); CHLORIDE LEVEL 112 MMOL/L (98-107); CHOLESTEROL LEVEL 128 MG/DL (<200); CHOLESTEROL RISK RATIO 2.66 (<5); CREATININE FOR GFR 1.16 MG/DL (0.70-1.30); GLOMERULAR FILTRATION RATE > 60.0 (>42); GLUCOSE, FASTING 125 MG/DL (74-106); HDL CHOLESTEROL 48.1 MG/DL (>40); LDL CHOLESTEROL 53.9 MG/DL (<100); NON-HDL-C 79.9 MG/DL; POTASSIUM SERUM 4.5 MMOL/L (3.5-5.1); SODIUM LEVEL 142 MMOL/L (136-145); TOTAL PROTEIN 7.3 G/DL (5.7-8.2); TRIGLYCERIDES LEVEL 130 MG/DL (<150)
[2023-08-07 18:58] LABS: FOLATE > 24.0 NG/ML (>5.4); TOTAL 25(OH) VITAMIN D 25.5 NG/ML (20.0-100.0); VITAMIN B12 LEVEL 450 PG/ML (211-911)
[2023-08-07 18:59] LABS: FERRITIN 111.8 NG/ML (10.5-307.3); THYROID STIMULATING HORMONE 1.301 uIU/ML (0.55-4.78)
== END ==
LOC: M LAB REF 17:35
PROVIDERS: ATTEND Physician Assistant
DX: E11.69 Type 2 diabetes mellitus with other specified complication (principal); Z79.899 Other long term (current) drug therapy

== ENCOUNTER → 2023-09-18 | Outpatient (CLI) | payer OTHER, MEDICAID ==
[~2023-09-18] MED LIST changes: +DOXY-440 PO; -DOXY-444 PO
== END ==
LOC: M RAD 10:28
PROVIDERS: ATTEND Physician Assistant
DX: G89.29 Other chronic pain (principal)

== ENCOUNTER → 2023-10-25 | Outpatient (CLI) | payer OTHER, MEDICAID | LOC: M RAD 11:45 | PROVIDERS: ATTEND Physician Assistant | DX: G89.29 Other chronic pain (principal); M25.561 Pain in right knee; M79.661 Pain in right lower leg; I73.9 Peripheral vascular disease, unspecified ==

== ENCOUNTER → 2024-08-29 | Outpatient (CLI) | payer MEDICAID, MEDICARE, OTHER ==
[~2024-08-29] MED LIST changes: -ELIM5CRE2 TOP; +OMEG-28 PO; -OMEG1CAP85 PO; +PERM60CR8 TOP
[2024-08-29 08:11] LABS: EOS # 0.3 10^3/uL (0.0-0.5); HEMATOCRIT 39.2 % (42.0-52.0); HEMOGLOBIN 13.3 g/dl (13.5-17.5); LYMPH # 2.2 10^3/uL (1.5-5.0); LYMPH % 35.6 % (24.0-44.0); MEAN CORPUSCULAR HEMOGLOBIN 31.9 pg (27.0-33.0); MEAN CORPUSCULAR HGB CONC 33.9 g/dl (32.0-36.5); MONO # 0.7 10^3/uL (0.0-0.8); MONO % 10.8 % (2.0-8.0); NEUTROPHILS % 48.3 % (36.0-66.0); PLATELET COUNT, AUTOMATED 147 10^3/uL (150-450); RED BLOOD COUNT 4.17 10^6/uL (4.30-6.10); WHITE BLOOD COUNT 6.2 10^3/uL (4.0-10.0)
[2024-08-29 08:50] LABS: MALB URINE SIEMENS < 3.0 MG/L
[2024-08-29 08:53] LABS: ALBUMIN 3.9 G/DL (3.2-5.2); BILIRUBIN,TOTAL 0.7 MG/DL (0.3-1.2); CALCIUM LEVEL 9.8 MG/DL (8.3-10.6); CHOLESTEROL RISK RATIO 3.09 (<5); CREATININE FOR GFR 1.11 MG/DL (0.70-1.30); GLOMERULAR FILTRATION RATE 67.1 (>35); HDL CHOLESTEROL 47.1 MG/DL (>40); LDL CHOLESTEROL 72.7 MG/DL (<100); NON-HDL-C 98.9 MG/DL; PERCENT SATURATION 26.2 % (19.7-50.0); POTASSIUM SERUM 4.4 MMOL/L (3.5-5.1); TOTAL PROTEIN 7.4 G/DL (5.7-8.2)
[2024-08-29 08:56] LABS: TOTAL 25(OH) VITAMIN D 31.8 NG/ML (20.0-100.0)
== END ==
LOC: M LAB 07:18
PROVIDERS: ATTEND Family Medicine
DX: Z00.00 Encounter for general adult medical examination without abnormal findings (principal); E11.9 Type 2 diabetes mellitus without complications; E78.2 Mixed hyperlipidemia

== ENCOUNTER → 2024-11-12 | Outpatient (POV) | payer OTHER, MEDICAID ==
[~2024-11-12] VITALS: Ht 162.6 cm; Wt 86.8 kg
[~2024-11-12] MED LIST changes: -PRAV20TA2 PO; +PRAV20TA78 PO
[2024-11-12 08:45] VITALS: BP 138/88; O2SAT 97
== END ==
LOC: M IRPOV 08:31
PROVIDERS: ATTEND Radiology Diagnostic Radiology
DX: I87.311 Chronic venous hypertension (idiopathic) with ulcer of right lower extremity (principal); L97.219 Non-pressure chronic ulcer of right calf with unspecified severity; Z79.899 Other long term (current) drug therapy; Z88.0 Allergy status to penicillin; Z88.1 Allergy status to other antibiotic agents; Z88.2 Allergy status to sulfonamides; Z88.6 Allergy status to analgesic agent

== ENCOUNTER → 2025-01-11 | Outpatient (CLI) | payer OTHER, MEDICAID ==
[~2025-01-11] MED LIST changes: +DORZ2SOL4 OS
== END ==
LOC: M SLEEP 20:00
PROVIDERS: ATTEND Nurse Practitioner Adult Health
DX: G47.33 Obstructive sleep apnea (adult) (pediatric) (principal)

== ENCOUNTER → 2025-01-15 | Outpatient (CLI) | payer OTHER, MEDICAID ==
[~2025-01-15] MED LIST changes: +IBUPROFEN 600 MG TAB PO PRN; +SODIUM CHLORIDE 0.9% 1000 ML XX SCH
[2025-01-15 14:35] VITALS: TEMP 96.6
[2025-01-15] MEDS: NS (Normal Saline) 0.9% 1,000 ML IV SCH (15:30)
[2025-01-15] MEDS: SODIUM TETRADECYL SULFATE (1%) 20MG/2ML VIAL (SOTRADECOL) IV SCH (16:00)
[2025-01-15] MEDS: MIDAZOLAM INJ 2 MG/2 ML VIAL IV PRN (16:00)
[2025-01-15] MEDS: LIDOCAINE 1% MDV 20 ML VIAL SC SCH (16:00)
[2025-01-15 16:05] VITALS: BP 149/73; O2SAT 97
== END ==
LOC: M IRPRO 14:13
PROVIDERS: ATTEND Radiology Diagnostic Radiology
DX: I87.311 Chronic venous hypertension (idiopathic) with ulcer of right lower extremity (principal)
CPT/HCPCS: 36475; J2250; J3010

== ENCOUNTER → 2025-02-16 | Outpatient (CLI) | payer OTHER, MEDICAID ==
[~2025-02-16] MED LIST changes: -IBUPROFEN 600 MG TAB PO PRN; -SODIUM CHLORIDE 0.9% 1000 ML XX SCH
== END ==
LOC: M RAD 09:59
PROVIDERS: ATTEND Radiology Diagnostic Radiology
DX: I87.2 Venous insufficiency (chronic) (peripheral) (principal); R59.0 Localized enlarged lymph nodes; I82.811 Embolism and thrombosis of superficial veins of right lower extremity; I83.891 Varicose veins of right lower extremity with other complications

== ENCOUNTER → 2025-02-18 | Outpatient (POV) | payer OTHER, MEDICAID ==
[~2025-02-18] VITALS: Ht 162.6 cm; Wt 85.3 kg
[2025-02-18 14:25] VITALS: BP 172/83; O2SAT 98
== END ==
LOC: M IRPOV 13:21
PROVIDERS: ATTEND Registered Nurse School
DX: Z48.812 Encounter for surgical aftercare following surgery on the circulatory system (principal); I87.311 Chronic venous hypertension (idiopathic) with ulcer of right lower extremity; L97.319 Non-pressure chronic ulcer of right ankle with unspecified severity; Z88.0 Allergy status to penicillin; Z88.2 Allergy status to sulfonamides; Z88.8 Allergy status to other drugs, medicaments and biological substances